=== PATIENT | female | born 1940 | race Hispanic/Latino ===

== ENCOUNTER 2017-02-28 15:06 | Emergency (ER) | payer MEDICARE ==
[2017-02-28 15:40] VITALS: BP 114/84
[2017-02-28 16:51] LABS: Basophils # (Auto) 0.1 K/mm3 (0.0-0.1); Basophils % (Auto) 1.3 % (0.0-1.8); Eosinophils # (Auto) 0.2 K/mm3 (0.0-0.4); Hematocrit 42.5 % (30.3-42.9); Hemoglobin 14.5 gm/dl (10.1-14.3); Lymphocytes # (Auto) 1.8 K/mm3 (1.2-5.4); Mean Corpuscular HGB Conc 34 % (30-34); Mean Corpuscular Hemoglobin 31 pg (28-32); Mean Corpuscular Volume 91 fl (79-97); Monocytes # (Auto) 0.3 K/mm3 (0.0-0.8); Monocytes % (Auto) 4.4 % (0.0-7.3); Platelet Count 208 K/mm3 (140-440); Red Blood Count 4.67 M/mm3 (3.65-5.03); Red Cell Distribution Width 13.8 % (13.2-15.2)
[2017-02-28 17:11] LABS: Alanine Aminotransferase 12 units/L (7-56); Albumin 4.3 g/dL (3.9-5); BUN/Creatinine Ratio 23; Blood Urea Nitrogen 14 mg/dL (7-17); Calcium 9.2 mg/dL (8.4-10.2); Hemolysis Index 50
== END 2017-03-01 02:00 | disposition left against medical advice (07) ==
LOC: ED 15:06
DX: R10.9 Unspecified abdominal pain (principal); Z53.21 Procedure and treatment not carried out due to patient leaving prior to being seen by health care provider
CPT/HCPCS: 36415; 80053; 85025; G0480; 80320

== ENCOUNTER 2019-06-03 12:18 | Observation (INO) | payer MEDICARE ==
[2019-06-03] MEDS ORDERED: oxyCODONE /ACETAMINOPHEN 5-325MG TAB PO PRN (18:51)
[2019-06-03] MEDS ORDERED: HYDROmorphone 1 MG/1 ML INJ IV PRN (18:51)
[2019-06-03] MEDS ORDERED: ACETAMINOPHEN 325 MG TAB PO PRN (18:51)
[2019-06-03] MEDS ORDERED: ONDANSETRON 4 MG/2 ML INJ IV PRN (18:51)
[2019-06-03] MEDS ORDERED: CELEXA 20 MG PO SCH (19:00)
[2019-06-03 21:18] LABS: Basophils % (Auto) 0.6 % (0.0-1.8); Eosinophils # (Auto) 0.1 K/mm3 (0.0-0.4); Eosinophils % (Auto) 2.1 % (0.0-4.3); Hematocrit 39.9 % (30.3-42.9); Hemoglobin 13.7 gm/dl (10.1-14.3); Lymphocytes # (Auto) 1.5 K/mm3 (1.2-5.4); Lymphocytes % (Auto) 26.5 % (13.4-35.0); Mean Corpuscular HGB Conc 34 % (30-34); Mean Corpuscular Volume 92 fl (79-97); Monocytes # (Auto) 0.7 K/mm3 (0.0-0.8); Monocytes % (Auto) 11.7 % (0.0-7.3); Platelet Count 186 K/mm3 (140-440); Red Blood Count 4.35 M/mm3 (3.65-5.03)
[2019-06-03 21:37] LABS: Alanine Aminotransferase 6 units/L (7-56); Albumin 3.5 g/dL (3.9-5); BUN/Creatinine Ratio 51; Blood Urea Nitrogen 36 mg/dL (7-17); Calcium 9.3 mg/dL (8.4-10.2); Hemolysis Index 9
[2019-06-03] MEDS ORDERED: NAMENDA 5 MG PO SCH (22:00)
[2019-06-03] MEDS ORDERED: ARICEPT PO SCH (22:00)
[2019-06-03] MEDS ORDERED: SEROQUEL 200 MG PO SCH (22:00)
[2019-06-03] MEDS ORDERED: KLONOPIN 1 MG PO SCH (22:00)
[2019-06-03] MEDS: atenoloL 25 MG TAB PO SCH (22:01)
[2019-06-03] MEDS: FAMOTIDINE 20 MG TAB PO SCH (22:01)
[2019-06-03] MEDS: QUEtiapine 200 MG TAB PO SCH (22:02)
[2019-06-03] MEDS: DONEPEZIL 5 MG TAB PO SCH (22:02)
[2019-06-03] MEDS: clonazePAM 0.5 MG TAB PO SCH (22:02)
[2019-06-03] MEDS: D5W/0.9% NACL 1,000 ML IV SCH (22:12)
[2019-06-03] MEDS: amLODIPine 5 MG TAB PO SCH (22:14)
[2019-06-04] MEDS: MEMANTINE 5 MG TAB PO SCH ×3 (05:41→21:34)
[2019-06-04] MEDS: CITALOPRAM 20 MG TAB PO SCH ×2 (05:41→09:18)
[2019-06-04] MEDS: D5W/0.9% NACL 1,000 ML IV SCH ×2 (05:56→15:56)
[2019-06-04] MEDS: clonazePAM 0.5 MG TAB PO SCH (09:18)
[2019-06-04] MEDS: FAMOTIDINE 20 MG TAB PO SCH ×2 (09:18→21:34)
[2019-06-04] MEDS: amLODIPine 5 MG TAB PO SCH (09:18)
[2019-06-04] MEDS: QUEtiapine 200 MG TAB PO SCH (09:20)
[2019-06-04] MEDS: atenoloL 25 MG TAB PO SCH ×2 (09:23→21:34)
--- NOTE | 2019-06-04 10:25 | Event Note ---
Date: 06/03/19 See H/p in reports AGE Dehydration
--- NOTE | 2019-06-04 11:07 | History and Physical Report ---
CHIEF COMPLAINT: Diarrhea, which is persistent for the last 24 hours. HISTORY OF PRESENT ILLNESS: A 78-year-old female admitted for poor oral intake and psychiatric treatment after the evaluation to the psych floor. The patient started having multiple episodes of loose stools and was getting dehydrated because of which the patient was transferred to the medical floor as a direct admit. PAST MEDICAL HISTORY: Hypertension and GERD. PAST SURGICAL HISTORY: Esophageal stricture dilatation. SOCIAL HISTORY: Denies smoking. FAMILY HISTORY: None. REVIEW OF SYSTEMS: Significant for persistent diarrhea. Feels weak. Otherwise, review of systems negative. PHYSICAL EXAMINATION: GENERAL: Elderly female, cooperative during examination. VITAL SIGNS: Blood pressure is 143/87, temperature is 97.3, pulse is 120, and sats are 94%. HEENT: Unremarkable. Pupils are equal and reactive. NECK: Supple, no lymphadenopathy, no thyromegaly. LUNGS: Clear to auscultation and percussion. Good air entry. CARDIOVASCULAR: S1, S2 heard. No gallop, no murmur, no rub. Apical impulse in left fifth intercostal space and midclavicular line. ABDOMEN: Soft and benign. No hepatosplenomegaly. No guarding, no rigidity. Hernial orifices are normal. EXTREMITIES: Good pedal pulses. No pedal edema. CENTRAL NERVOUS SYSTEM: Alert and oriented x 4, nonfocal exam. LABORATORY DATA: The patient's CBC is normal. BUN and creatinine is 19 and 0.7. TSH is 5.1. Albumin is 3.1. ASSESSMENT AND PLAN: 1. Acute gastroenteritis with volume depletion. ____. 2. Dehydration. IV normal saline. ____ observation. 3. Hypertension. Continue antihypertensives. 4. Deep venous thrombosis prophylaxis, Lovenox 40 mg subcutaneous daily. 5. Generalized anxiety disorder. Continue clonazepam. JOB# [id number] VSM/NTS
--- NOTE | 2019-06-04 12:59 | Consultation ---
History of Present Illness - Reason for Consult Consult date: 06/04/19 Reason for consult: MHE Requesting physician: ADRIEN VERONICA - Chief Complaint Chief complaint: Confusion - History of Present Psychiatric Illness HPI This patient was initially admitted to the [facility] inpatient for acute management of confusion, agitation and behavioral disturbances before being transferred to medical floor for dehydration, poor oral intake and medical stabilization as determined that she would benefit from inpatient psychiatric management of her acute state which is mostly due to organic causes and decline in activity of daily living such as feeding self. Patient has medical history of vascular dementia which is also a predisposing and precipitating factor. Patient was seen by bedside today in bed, sleeping deeply and only arousal to loud verbal stimuli. PAST PSYCHIATRIC HISTORY: Diagnoses: Dementia, Anxiety PAST MEDICAL HISTORY: Left Breast cancer, COPD, GI Bleed, Esophageal stricture w/ repeated dilatations, GERD, HTN, Leaky heart valve, renal cyst, valvular stenosis, and dyspena on exertion. Family Psychiatric History: None reported or documented SOCIAL HISTORY Unable to obtain due to patient's confusion REVIEW OF SYSTEMS ROS cannot be reliably obtained from the patient due to her confusion MENTAL STATUS Age appropriate, sleeping, responds to loud verbal stimuli, completely disoriented, and unable to engage in interview. Assessment and Plan - Psychiatric problem (1) At risk for polypharmacy Current Visit: No Status: Acute (2) Delirium due to another medical condition, persistent, mixed level of activity Current Visit: No Status: Acute (3) Medication noncompliance due to cognitive impairment Current Visit: No Status: Acute (4) Vascular dementia with behavioral disturbance Current Visit: No Status: Acute RECOMMENDATIONS Pls do not give patient anticholinergic medicines, antidepressants, antipsychotics or pain medication. If agitation persist, soft restraints recommended. This patient was discharged from inpatient psych due to poor oral intake, dehydration and concern for malnutrition which may worsen her confused state in which it was determined inpatient psychological intervention is no longer beneficial. MEDICATIONS: Melatonin for sleep and circadian rhythm Risks, benefits and alternatives of medications discussed with the patient, questions answered and consent obtained from patient. PSYCHOTHERAPY: Supportive psychotherapy provided MEDICAL: Per primary team DELIRIUM PRECAUTIONS: Please re-orient patient frequently, keep lights on during the day, and minimize benzodiazepines and opiates as these medications could worsen patient's confusion. 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 It is determined that patient needs skill nursing facility and not psych inpatient. LEGAL STATUS: Voluntary FOLLOW-UP: Will follow Thank you for the consult. Please contact with any questions and/or concerns. Medications and Allergies Allergies Allergy/AdvReac Type Severity Reaction Status Date / Time guaifenesin [From Mucinex] Allergy Vomiting Verified 05/25/19 15:25 sulfamethoxazole Allergy Unknown Verified 05/25/19 15:24 [From Bactrim] trimethoprim [From Bactrim] Allergy Unknown Verified 05/25/19 15:24 Home Medications Medication Instructions Recorded Confirmed Last Taken Type Aricept 0.5 mg PO QHS 05/25/19 05/25/19 Unknown History Celexa 20 mg PO DAILY 05/25/19 05/25/19 Unknown History KlonoPIN 1 mg PO BID 05/25/19 05/25/19 Unknown History Namenda Xr 5 mg PO BID 05/25/19 05/25/19 Unknown History SEROquel 200 mg PO BID 05/25/19 05/25/19 Unknown History amLODIPine 5 mg PO DAILY 05/25/19 05/25/19 Unknown History atenoloL [Tenormin] 25 mg PO BID 05/25/19 05/25/19 Unknown History Active Meds: Active Medications Acetaminophen (Tylenol) 650 mg PO Q4H PRN PRN Reason: Pain MILD(1-3)/Fever >100.5/RUDD Amlodipine Besylate (Amlodipine) 5 mg PO DAILY [facility] Last Admin: 06/04/19 09:18 Dose: 5 mg Documented by: Atenolol (Tenormin) 25 mg PO BID [facility] Last Admin: 06/04/19 09:23 Dose: 25 mg Documented by: Donepezil HCl (Aricept) 5 mg PO QHS [facility] Last Admin: 06/03/19 22:02 Dose: 5 mg Documented by: Famotidine (Pepcid) 20 mg PO BID [facility] Last Admin: 06/04/19 09:18 Dose: 20 mg Documented by: Dextrose/Sodium Chloride (D5ns) 1,000 mls @ 100 mls/hr IV DIRECT [facility] Last Admin: 06/04/19 05:56 Dose: 100 mls/hr Documented by: Memantine (Memantine) 5 mg PO BID [facility] Last Admin: 06/04/19 09:19 Dose: 5 mg Documented by: Ondansetron HCl (Zofran) 4 mg IV Q8H PRN PRN Reason: Nausea And Vomiting Sodium Chloride (Sodium Chloride Flush Syringe 10 Ml) 10 ml IV BID [facility] Last Admin: 06/04/19 09:20 Dose: 10 ml Documented by: Sodium Chloride (Sodium Chloride Flush Syringe 10 Ml) 10 ml IV PRN PRN PRN Reason: LINE FLUSH Mental Status Exam - Vital signs Last Vital Signs Temp 98.3 F 06/04/19 11:29 Pulse 86 06/04/19 11:29 Resp 17 06/04/19 11:29 BP 115/78 06/04/19 11:29 Pulse Ox 98 06/04/19 11:29 Results Result Diagrams: 06/03/19 20:23 06/03/19 20:23 Abnormal lab results 06/03/19 06/03/19 Range/Units 20:23 20:23 [place] % (Auto) 11.7 H (0.0-7.3) % BUN 36 H (7-17) mg/dL Glucose 101 H (65-100) mg/dL ALT 6 L (7-56) units/L Albumin 3.5 L (3.9-5) g/dL All other labs normal. Assessment and Plan - Psychiatric problem (1) At risk for polypharmacy Current Visit: No Status: Acute (2) Delirium due to another medical condition, persistent, mixed level of activity Current Visit: No Status: Acute (3) Medication noncompliance due to cognitive impairment Current Visit: No Status: Acute (4) Vascular dementia with behavioral disturbance Current Visit: No Status: Acute
[2019-06-04] MEDS: DONEPEZIL 5 MG TAB PO SCH (21:34)
[2019-06-05] MEDS: D5W/0.9% NACL 1,000 ML IV SCH (04:03)
[2019-06-05] MEDS: hydrALAZINE 20 MG/1 ML INJ IV PRN ×2 (05:36→13:52)
--- NOTE | 2019-06-05 09:15 | Progress Note ---
Subjective - Reason for Consult Consult date: 06/05/19 Reason for consult: MHE Requesting physician: ADRIEN VERONICA - Chief Complaint Chief complaint: Per Floor Nurse [place]: HPI This patient was initially admitted to the [facility] inpatient for acute management of confusion, agitation and behavioral disturbances before being transferred to medical floor for dehydration, poor oral intake and medical stabilization as determined that she would benefit from inpatient psychiatric management of her acute state and would need to be weaned off psychotropic medications that she has been on for a while and others restarted by medical team which was not indicated per psych. Patient awake today in soft restraints and responds to normal verbal stimuli. Reason for recommending admission to psych inpatient: Management of polypharmacy, persistent psychomotor agitation and behavioral disturbances which possess risk to self injury and others. PAST PSYCHIATRIC HISTORY: Diagnoses: Dementia, Anxiety PAST MEDICAL HISTORY: Left Breast cancer, COPD, GI Bleed, Esophageal stricture w/ repeated dilatations, GERD, HTN, Leaky heart valve, renal cyst, valvular stenosis, and dyspena on exertion. Family Psychiatric History: None reported or documented SOCIAL HISTORY Unable to obtain due to patient's confusion REVIEW OF SYSTEMS ROS cannot be reliably obtained from the patient due to her confusion MENTAL STATUS Age appropriate, sleeping, responds to loud verbal stimuli, completely disoriented, and unable to engage in interview. Assessment and Plan - Patient Problems (1) Delirium due to another medical condition, persistent, mixed level of activity Current Visit: No Status: Acute (2) Medication noncompliance due to cognitive impairment Current Visit: No Status: Acute (3) Vascular dementia with behavioral disturbance Current Visit: No Status: Acute (4) Polypharmacy Current Visit: Yes Status: Acute (5) Unspecified behavioral syndromes associated with physiological disturbances and physical factors Current Visit: Yes Status: Acute RECOMMENDATIONS On admission, pt medication that was initially discontinued and being weaned off were restarted. I have discussed with care team that patient needs to be admitted back to psych for polypharmacy induced behavioral disturbances and also weaning off medications as this may precipitate withdrawals and worsen her condition. Pls do not give patient anticholinergic medicines, antidepressants, antipsychotics or pain medication. If agitation persist, soft restraints recommended. This patient was discharged from inpatient psych due to poor oral intake, d ehydration and concern for malnutrition which may worsen her confused state in which it was determined inpatient psychological intervention is no longer beneficial. MEDICATIONS: Melatonin for sleep and circadian rhythm Risks, benefits and alternatives of medications discussed with the patient, questions answered and consent obtained from patient. PSYCHOTHERAPY: Supportive psychotherapy provided MEDICAL: Per primary team DELIRIUM PRECAUTIONS: Please re-orient patient frequently, keep lights on during the day, and minimize benzodiazepines and opiates as these medications could worsen patient's confusion. 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 Please repeat BMP. LEGAL STATUS: Voluntary FOLLOW-UP: Will follow Thank you for the consult. Please contact with any questions and/or concerns. Mental Status Exam - Vital signs Last Vital Signs Temp 97.5 F L 06/05/19 04:06 Pulse 85 06/05/19 05:36 Resp 18 06/05/19 04:06 BP 173/106 06/05/19 05:36 Pulse Ox 99 06/05/19 04:06 Assessment and Plan - Patient Problems (1) Delirium due to another medical condition, persistent, mixed level of activity Current Visit: No Status: Acute (2) Medication noncompliance due to cognitive impairment Current Visit: No Status: Acute (3) Vascular dementia with behavioral disturbance Current Visit: No Status: Acute (4) Polypharmacy Current Visit: Yes Status: Acute (5) Unspecified behavioral syndromes associated with physiological disturbances and physical factors Current Visit: Yes Status: Acute
[2019-06-05] MEDS: MEMANTINE 5 MG TAB PO SCH (09:52)
[2019-06-05] MEDS: atenoloL 25 MG TAB PO SCH (09:52)
[2019-06-05] MEDS: FAMOTIDINE 20 MG TAB PO SCH (09:52)
[2019-06-05] MEDS: amLODIPine 5 MG TAB PO SCH (09:52)
--- NOTE | 2019-06-05 09:57 | Progress Note ---
Assessment and Plan - Patient Problems (1) Delirium Current Visit: No Status: Acute Plan to address problem: Improving (2) Acute gastroenteritis Current Visit: Yes Status: Acute Plan to address problem: Resolving (3) Volume depletion, renal, due to effector loss (hormonal deficit) Current Visit: Yes Status: Acute Plan to address problem: IV FDluids (4) Polypharmacy Current Visit: Yes Status: Chronic Plan to address problem: Defer to psychiatry (5) Vascular dementia with behavioral disturbance Current Visit: No Status: Chronic Plan to address problem: Needs LTC (6) DVT prophylaxis Current Visit: Yes Status: Acute Plan to address problem: On SCD's Subjective Date of service: 06/04/19 Principal diagnosis: Dehydration,Gastroenterittis Interval history: Sx better Objective - Constitutional Vitals: Vital Signs - 12hr 06/04/19 06/05/19 06/05/19 23:16 04:06 05:36 Temperature 97.8 F 97.5 F L Pulse Rate 80 86 85 Respiratory 20 18 Rate Blood Pressure 163/100 169/110 173/106 O2 Sat by Pulse 94 99 Oximetry 06/05/19 09:52 Temperature Pulse Rate 85 Respiratory Rate Blood Pressure 173/106 O2 Sat by Pulse Oximetry General appearance: Present: no acute distress, well-nourished - EENT Eyes: PERRL, EOM intact ENT: hearing intact, clear oral mucosa Ears: bilateral: normal - Neck Neck: supple, normal ROM - Respiratory Respiratory effort: normal Respiratory: bilateral: CTA - Breasts Breasts: normal - Cardiovascular Rhythm: regular Heart Sounds: Present: S1 & S2. Absent: gallop, rub Extremities: pulses intact, No edema, normal color, Full ROM - Gastrointestinal General gastrointestinal: Present: soft, non-tender, non-distended, normal bowel sounds - Genitourinary Female genitourinary: normal - Integumentary Integumentary: clear, warm, dry - Musculoskeletal Musculoskeletal: 1, strength equal bilaterally - Neurologic Neurologic: moves all extremities - Psychiatric Psychiatric: memory intact, appropriate mood/affect, intact judgment & insight - Labs CBC & Chem 7: 06/03/19 20:23 06/03/19 20:23
--- NOTE | 2019-06-05 10:04 | Discharge Summary ---
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 Hospitalization Hospital course: Improved with IV fluids (1) Delirium Current Visit: No Status: Acute Plan to address problem: Improving (2) Acute gastroenteritis Current Visit: Yes Status: Acute Plan to address problem: Resolving (3) Volume depletion, renal, due to effector loss (hormonal deficit) Current Visit: Yes Status: Acute Plan to address problem: IV FDluids (4) Polypharmacy Current Visit: Yes Status: Chronic Plan to address problem: Defer to psychiatry (5) Vascular dementia with behavioral disturbance Current Visit: No Status: Chronic Plan to address problem: Needs LTC (6) DVT prophylaxis Current Visit: Yes Status: Acute Plan to address problem: On SCD's Disposition: [id number]/[id number] PSY HOSP/PSY UNIT - Discharge Diagnoses (1) Delirium Status: Acute (2) Acute gastroenteritis Status: Acute (3) Volume depletion, renal, due to effector loss (hormonal deficit) Status: Acute (4) Polypharmacy Status: Chronic (5) Vascular dementia with behavioral disturbance Status: Chronic (6) DVT prophylaxis Status: Acute Core Measure Documentation - Palliative Care Palliative Care/ Comfort Measures: Not Applicable - Core Measures Any of the following diagnoses?: none Exam - Constitutional Vitals: Temp Pulse Resp BP Pulse Ox 97.5 F L 85 18 173/106 99 06/05/19 04:06 06/05/19 09:52 06/05/19 04:06 06/05/19 09:52 06/05/19 04:06 General appearance: Present: no acute distress, well-nourished - EENT Eyes: Present: PERRL ENT: hearing intact, clear oral mucosa - Neck Neck: Present: supple, normal ROM - Respiratory Respiratory effort: normal Respiratory: bilateral: CTA - Cardiovascular Heart Sounds: Present: S1 & S2. Absent: rub, click - Extremities Extremities: pulses symmetrical, No edema Peripheral Pulses: within normal limits - Abdominal General gastrointestinal: Present: soft, non-tender, non-distended, normal bowel sounds Female genitourinary: Present: normal - Integumentary Integumentary: Present: clear, warm, dry - Musculoskeletal Musculoskeletal: gait normal, strength equal bilaterally - Psychiatric Psychiatric: appropriate mood/affect, intact judgment & insight - Neurologic Neurologic: CNII-XII intact, moves all extremities Plan Activity: no restrictions Diet: regular Follow up with: PRIMARY CARE,MD [Primary Care Provider] - 7 Days
[2019-06-05 10:57] LABS: BUN/Creatinine Ratio 50; Blood Urea Nitrogen 20 mg/dL (7-17); Calcium 9.1 mg/dL (8.4-10.2); Hemolysis Index 6
[2019-06-05 14:49] VITALS: BP 115/68
[2019-06-05] MEDS ORDERED: MELATONIN 5 MG TAB PO SCH (21:00)
== END 2019-06-05 17:05 ==
LOC: 3A 12:18 → UNDOADMIN 12:18 → 4A 17:04 → INTOOBSV 17:04
PROVIDERS: ADMIT Internal Medicine; ATTEND Internal Medicine
DX: K52.9 Noninfective gastroenteritis and colitis, unspecified (principal); E86.0 Dehydration; I10 Essential (primary) hypertension; F41.9 Anxiety disorder, unspecified; R41.0 Disorientation, unspecified; K21.9 Gastro-esophageal reflux disease without esophagitis; E86.9 Volume depletion, unspecified; F01.51 Vascular dementia, unspecified severity, with behavioral disturbance; Z91.14 Patient's other noncompliance with medication regimen; Z98.890 Other specified postprocedural states
CPT/HCPCS: 36415; 80048; 80053; 83036; 85025; 96361; 96374; 96376; G0378; G0379; J0360; J7042

== ENCOUNTER 2019-06-08 17:29 | Inpatient (IN) | payer MEDICARE ==
--- NOTE | 2019-06-08 17:50 | History and Physical Report ---
History of Present Illness Chief complaint: She is confused, not talking, and not eating History of present illness: 78 YO Female with Dementia, Debility, GERD, HTN, Anxiety admitted directly to the hospital medicine service from the [facility] psych service. Patient is stuporous, and nonverbal at the time of my evaluation and is unable to provide history. Patient history provided by [facility] psych nursing staff. As per staff the patient has experienced decreased oral intake, decreased verbalization, and increased confusion over the past 3 days with progressively worsening symptoms over the same timeframe. A urinalysis was obtained and the patient was found to have urinary tract infection, as well as volume depletion. Patient seen and evaluated in her room and was admitted directly to the [facility] unit for medical stabilization. Lab and imaging studies reviewed. Patient was found to have urinary tract infection, complicated by encephalopathy. Patient initiated on IV antibiotic therapy as well as IV fluid resuscitation therapy. No reports of fever, chills, chest pain, productive cough, falls, trauma, recent ill contacts. Advanced care planning conducted in the emergency department. No further history obtainable. Patient has a positive gag reflex and is able to protect her airway. Past History Past Medical History: GERD, hypertension, other (See HPI) Past Surgical History: Other (Esophageal dilatation) Social history: . denies: smoking, alcohol abuse, prescription drug abuse Family history: no significant family history (Reviewed) Medications and Allergies Allergies Allergy/AdvReac Type Severity Reaction Status Date / Time guaifenesin [From Mucinex] Allergy Vomiting Verified 05/25/19 15:25 sulfamethoxazole Allergy Unknown Verified 05/25/19 15:24 [From Bactrim] trimethoprim [From Bactrim] Allergy Unknown Verified 05/25/19 15:24 Home Medications Medication Instructions Recorded Confirmed Last Taken Type Aricept 0.5 mg PO QHS 05/25/19 06/08/19 Unknown History Celexa 20 mg PO DAILY 05/25/19 06/08/19 Unknown History KlonoPIN 1 mg PO BID 05/25/19 06/08/19 Unknown History Namenda Xr 5 mg PO BID 05/25/19 06/08/19 Unknown History SEROquel 200 mg PO BID 05/25/19 06/08/19 Unknown History amLODIPine 5 mg PO DAILY 05/25/19 06/08/19 Unknown History atenoloL [Tenormin] 25 mg PO BID 05/25/19 06/08/[address] [Depakote Dr] 125 mg PO BID tablet 06/08/19 Unknown Rx Pantoprazole [Protonix TAB] 40 mg PO QDAY tablet 06/08/19 Unknown Rx clonazePAM [KlonoPIN] 1 mg PO BID tablet 06/08/19 Unknown Rx Active Meds: Active Medications Acetaminophen (Tylenol) 650 mg PO Q4H PRN PRN Reason: Pain MILD(1-3)/Fever >100.5/RUDD Ondansetron HCl (Zofran) 4 mg IV Q8H PRN PRN Reason: Nausea And Vomiting Sodium Chloride (Sodium Chloride Flush Syringe 10 Ml) 10 ml IV BID [facility]I Sodium Chloride (Sodium Chloride Flush Syringe 10 Ml) 10 ml IV PRN PRN PRN Reason: LINE FLUSH Review of Systems ROS unobtainable: due to mental status Exam - Constitutional General appearance: Present: mild distress - EENT Eyes: Present: PERRL ENT: hearing intact, clear oral mucosa - Neck Neck: Present: supple, normal ROM - Respiratory Respiratory effort: normal Respiratory: bilateral: CTA - Cardiovascular Heart Sounds: Present: S1 & S2. Absent: rub, click - Extremities Extremities: pulses symmetrical, No edema Peripheral Pulses: within normal limits - Abdominal General gastrointestinal: Present: soft, non-tender, non-distended, normal bowel sounds Female genitourinary: Present: normal - Integumentary Integumentary: Present: clear, dry, clammy, decreased turgor - Musculoskeletal Musculoskeletal: generalized weakness - Psychiatric Psychiatric: no appropriate mood/affect, no intact judgment & insight, no memory intact - Neurologic Neurologic: CNII-XII intact, no focal deficits, moves all extremities, no gait normal Assessment and Plan - Patient Problems (1) Metabolic encephalopathy Current Visit: Yes Status: Acute Plan to address problem: CT head, neuro check, aspiration precaution, seizure precaution, fall precautions, supportive care. IV fluid resuscitation therapy as clinically jose alfredo cated. (2) Urinary tract infection Current Visit: Yes Status: Acute Qualifiers: Encounter type: initial encounter Plan to address problem: Urinalysis, CBC, CMP, IV antibiotic therapy, (3) Gastroesophageal reflux disease Current Visit: Yes Status: Acute Qualifiers: Esophagitis presence: without esophagitis Qualified Code(s): K21.9 - Gastro-esophageal reflux disease without esophagitis Plan to address problem: PPI therapy, supportive care. (4) Vascular dementia with behavioral disturbance Current Visit: No Status: Chronic Plan to address problem: Ativan as needed, aspiration precaution, fall precautions, neuro check (5) DVT prophylaxis Current Visit: Yes Status: Acute Plan to address problem: SCD to bilateral lower extremities while in bed, prophylactic heparin (6) Advance care planning Current Visit: Yes Status: Acute Plan to address problem: Disease education conducted, patient is full code, +30 minutes.
[2019-06-08 20:57] LABS: Free T4 (Free Thyroxine) 1.67 ng/dL (0.76-1.46)
[2019-06-08] MEDS ORDERED: NAMENDA 5 MG PO SCH (22:00)
[2019-06-08] MEDS ORDERED: SEROQUEL 200 MG PO SCH (22:00)
[2019-06-08] MEDS ORDERED: ARICEPT PO SCH ×2 (22:00)
[2019-06-08] MEDS ORDERED: DONEPEZIL 5 MG TAB PO SCH (22:00)
[2019-06-08] MEDS: MEMANTINE 5 MG TAB PO SCH (23:35)
[2019-06-08] MEDS: DIVALPROEX DR 125 MG TAB PO SCH (23:35)
[2019-06-08] MEDS: QUEtiapine 200 MG TAB PO SCH (23:35)
[2019-06-08] MEDS: HEPARIN 5,000 UNIT/1 ML VIAL SUB-Q SCH (23:37)
[2019-06-08] MEDS: atenoloL 25 MG TAB PO SCH (23:37)
--- NOTE | 2019-06-09 02:30 | Cat Scan Report ---
CT HEAD WITHOUT CONTRAST INDICATION: Confusion / Altered Mental Status TECHNIQUE: All CT scans at this location are performed using CT dose reduction for ALARA by means of automated exposure control. COMPARISON: None available. FINDINGS: BRAIN: No hemorrhage or mass effect are seen. No evidence of acute infarction is noted. Moderate atro phy is seen. White matter microvascular changes are noted. ORBITS: Normal as visualized. SOFT TISSUES OF HEAD: Normal. CALVARIUM: Normal. VISUALIZED PARANASAL SINUSES AND MASTOID AIR CELLS: Clear. ADDITIONAL FINDINGS: None. IMPRESSION: No acute intracranial abnormality. Signer Name: Petros Nichols MD Signed: 06/09/2019 2:26 AM Workstation Name: [id number]
[2019-06-09 05:44] LABS: Basophils % (Auto) 0.3 % (0.0-1.8); Eosinophils # (Auto) 0.1 K/mm3 (0.0-0.4); Eosinophils % (Auto) 0.5 % (0.0-4.3); Hematocrit 36.5 % (30.3-42.9); Hemoglobin 12.5 gm/dl (10.1-14.3); Lymphocytes # (Auto) 1.5 K/mm3 (1.2-5.4); Lymphocytes % (Auto) 13.2 % (13.4-35.0); Mean Corpuscular HGB Conc 34 % (30-34); Mean Corpuscular Volume 91 fl (79-97); Monocytes # (Auto) 1.3 K/mm3 (0.0-0.8); Monocytes % (Auto) 11.3 % (0.0-7.3); Platelet Count 202 K/mm3 (140-440); Red Blood Count 4.01 M/mm3 (3.65-5.03); Red Cell Distribution Width 13.9 % (13.2-15.2)
[2019-06-09 06:14] LABS: Albumin 3.7 g/dL (3.9-5); Calcium 9.7 mg/dL (8.4-10.2)
--- NOTE | 2019-06-09 08:34 | Progress Note ---
Assessment and Plan Assessment and plan: --Metabolic encephalopathy Current Visit: Yes Status: Acute Multifactorial , psych conditions , dementia , poor oral intake , possible UTI CT head no acute abnormalities noted, neurochecks, treat underlying cause, supportive care Psych evaluation --Failure to thrive in adult/poor oral intake IV fluids, nutrition supplements, Dobbhoff placement, tube feeding until she is awake and able to eat --Possible urinary tract infection Current Visit: Yes Status: Acute Empiric antibiotics with Rocephin , follow cultures . Supportive care -- Gastroesophageal reflux disease Current Visit: Yes Status: Acute PPI therapy, supportive care. --Vascular dementia with behavioral disturbance Current Visit: No Status: Chronic Ativan as needed, aspiration precaution, fall precautions, neuro check. PT OT --Abnormal TFTs Current Visit: Yes Status: Acute Abnormal thyroid function tests Normal TSH, very minimal elevation of T4 Will monitor and repeat the tests in a week -- DVT prophylaxis Current Visit: Yes Status: Acute SCD to bilateral lower extremities while in bed, prophylactic heparin -- Advance care planning/full CODE STATUS Current Visit: Yes Status: Acute Monitor closely and adjust management as needed Plan of care is reviewed with the patient's nurse I called the daughter at [phone], no one picked up the phone Could not leave message History Interval history: Patient seen and examined at bedside in her room this morning Patient's chart medications, test reports reviewed Patient is lethargic, but opening her eyes upon calling out her name Not in acute distress, refusing to eat or drink Vital signs noted Hospitalist Physical - Constitutional Vitals: Temp Pulse Resp BP Pulse Ox 98.5 F 75 18 138/80 95 06/09/19 01:58 06/09/19 01:58 06/09/19 01:58 06/09/19 01:58 06/09/19 01:58 General appearance: Present: no acute distress, cachectic, disheveled, other (Closing eyes, opening on calling out her name) - EENT Eyes: Present: PERRL, EOM intact - Neck Neck: Present: supple, normal ROM - Respiratory Respiratory effort: normal Respiratory: bilateral: diminished, negative: rales, rhonchi, wheezing - Cardiovascular Rhythm: regular Heart Sounds: Present: S1 & S2 - Extremities Extremities: no ischemia, No edema - Abdominal General gastrointestinal: soft, non-tender, non-distended, normal bowel sounds - Integumentary Integumentary: Present: clear, warm - Psychiatric Psychiatric: other (Lethargic and confused) - Neurologic Neurologic: moves all extremities Results - Labs CBC & Chem 7: 06/09/19 05:00 06/09/19 05:00 Labs: Laboratory Last Values WBC 11.2 K/mm3 (4.5-11.0) H 06/09/19 05:00 RBC 4.01 M/mm3 (3.65-5.03) 06/09/19 05:00 Hgb 12.5 gm/dl (10.1-14.3) 06/09/19 05:00 Hct 36.5 % (30.3-42.9) 06/09/19 05:00 MCV 91 fl (79-97) 06/09/19 05:00 MCH 31 pg (28-32) 06/09/19 05:00 MCHC 34 % (30-34) 06/09/19 05:00 RDW 13.9 % (13.2-15.2) 06/09/19 05:00 Plt Count 202 K/mm3 (140-440) 06/09/19 05:00 Lymph % (Auto) 13.2 % (13.4-35.0) L 06/09/19 05:00 [place] % (Auto) 11.3 % (0.0-7.3) H 06/09/19 05:00 Eos % (Auto) 0.5 % (0.0-4.3) 06/09/19 05:00 Baso % (Auto) 0.3 % (0.0-1.8) 06/09/19 05:00 Lymph # 1.5 K/mm3 (1.2-5.4) 06/09/19 05:00 [place] # 1.3 K/mm3 (0.0-0.8) H 06/09/19 05:00 Eos # 0.1 K/mm3 (0.0-0.4) 06/09/19 05:00 Baso # 0.0 K/mm3 (0.0-0.1) 06/09/19 05:00 Seg Neutrophils % 74.7 % (40.0-70.0) H 06/09/19 05:00 Seg Neutrophils # 8.3 K/mm3 (1.8-7.7) H 06/09/19 05:00 Sodium 147 mmol/L (137-145) H 06/09/19 05:00 Potassium 3.7 mmol/L (3.6-5.0) 06/09/19 05:00 Chloride 107.6 mmol/L (98-107) H 06/09/19 05:00 Carbon Dioxide 25 mmol/L (22-30) 06/09/19 05:00 Anion Gap 18 mmol/L 06/09/19 05:00 BUN 71 mg/dL (7-17) H 06/09/19 05:00 Creatinine 1.2 mg/dL (0.7-1.2) D 06/09/19 05:00 Estimated GFR 44 ml/min 06/09/19 05:00 BUN/Creatinine Ratio 59 % 06/09/19 05:00 Glucose 134 mg/dL (65-100) H 06/09/19 05:00 Calcium 9.7 mg/dL (8.4-10.2) 06/09/19 05:00 Total Bilirubin 0.70 mg/dL (0.1-1.2) 06/09/19 05:00 AST 30 units/L (5-40) 06/09/19 05:00 ALT 14 units/L (7-56) 06/09/19 05:00 Alkaline Phosphatase 77 units/L (35-129) 06/09/19 05:00 Total Protein 6.9 g/dL (6.3-8.2) 06/09/19 05:00 Albumin 3.7 g/dL (3.9-5) L 06/09/19 05:00 Albumin/Globulin Ratio 1.2 % 06/09/19 05:00 TSH 3.110 mlU/mL (0.270-4.200) 06/08/19 20:05 Free T4 1.67 ng/dL (0.76-1.46) H 06/08/19 20:05 Polanco/IV: Voiding Method Incontinent IV Catheter Type [Left Forearm INT / Saline Lock ] Active Medications - Current Medications Current Medications: Generic Name Dose Route Start Last Admin Trade Name Freq PRN Reason Stop Dose Admin Acetaminophen 650 mg 06/08/19 17:46 Tylenol PO Q4H PRN Pain MILD(1-3)/Fever >100.5/RUDD Amlodipine Besylate 5 mg 06/09/19 10:00 Amlodipine PO DAILY [facility] Atenolol 25 mg 06/08/19 22:00 06/08/19 23:37 Tenormin PO 25 mg BID PAMDINI Administration Citalopram Hydrobromide 20 mg 06/09/19 10:00 Celexa PO QDAY [facility] Divalproex Sodium 125 mg 06/08/19 22:00 06/08/19 23:[address] PO 125 mg BID PADMINI Administration Donepezil HCl 5 mg 06/08/19 22:00 06/08/19 23:35 Aricept PO 5 mg QHS PADMINI Administration Heparin Sodium (Porcine) 5,000 unit 06/08/19 22:00 06/08/19 23:37 Heparin SUB-Q 5,000 unit Q12HR PADMINI Administration Ceftriaxone Sodium 1 gm in 50 mls @ 100 mls/hr 06/08/19 17:50 Rocephin/Ns 1 Gm/50 Ml IV Q24HR [facility] Protocol Memantine 5 mg 06/08/19 22:00 06/08/19 23:35 Memantine PO 5 mg BID PADMINI Administration Ondansetron HCl 4 mg 06/08/19 17:46 Zofran IV Q8H PRN Nausea And Vomiting Pantoprazole Sodium 40 mg 06/09/19 10:00 Protonix PO QDAY [facility] Quetiapine Fumarate 200 mg 06/08/19 22:00 06/08/19 23:35 Seroquel PO 200 mg BID PADMINI Administration Sodium Chloride 10 ml 06/08/19 22:00 06/08/19 23:36 Sodium Chloride Flush Syringe 10 Ml IV 10 ml BID PADMINI Administration Sodium Chloride 10 ml 06/08/19 17:46 Sodium Chloride Flush Syringe 10 Ml IV PRN PRN LINE FLUSH
[2019-06-09] MEDS ORDERED: LIPASE 10,500/PROTEASE 25,000/AMYLASE 43,750 (UNITS) DR CAP FEEDTUBE PRN (08:44)
[2019-06-09] MEDS ORDERED: SIMPLE SYRUP 15 ML FEEDTUBE PRN ×2 (08:44)
[2019-06-09] MEDS ORDERED: SODIUM BICARBONATE 325 MG TAB FEEDTUBE PRN (08:44)
[2019-06-09] MEDS: cefTRIAXone/NS 1 GM/50 ML 1 GM/50 ML BAG IV SCH ×2 (09:18→10:05)
--- NOTE | 2019-06-09 09:19 | Event Note ---
Date: 06/09/19 Nurse reports that patient's daughter Essence wanted to talk about Ms. Geoff Soto's medical condition and treatment plan I called Essence [phone]. And discussed in detail patient's condition, test reports, treatment plan. The daughter had many questions, answered all of them.
[2019-06-09] MEDS: D5W/0.45% NACL 1,000 ML IV SCH ×2 (09:20→17:33)
--- NOTE | 2019-06-09 09:48 | XRay Report ---
ABDOMEN 1 VIEW(S) INDICATION / CLINICAL INFORMATION: DOBHOFF PLACEMENT. COMPARISON: None available. FINDINGS: TUBES / LINES: Weighted feeding tube tip is in the proximal stomach. BOWEL GAS PATTERN: No significant abnormality. FREE AIR / EXTRALUMINAL GAS: None seen. ADDITIONAL FINDINGS: No significant additional findings. IMPRESSION: 1. The tip of the weighted enteric feeding tube is in the proximal stomach. Signer Name: Clifton Schwartz MD Signed: 06/09/2019 9:44 AM Workstation Name: [facility]
[2019-06-09] MEDS ORDERED: CELEXA 20 MG PO SCH (10:00)
--- NOTE | 2019-06-09 11:26 | Consultation ---
History of Present Illness - Reason for Consult Consult date: 06/09/19 Reason for consult: psychosis - Chief Complaint Chief complaint: She is confused, not talking, and not eating - History of Present Psychiatric Illness Brittany Tellez is a 78 y/o female patient known to me from a recent psychiatric admission. I attempted to interview the patient today, she was somnolent and unable to participate in the interview. She was in wrist restraints. An NG tube was in place. Past Psychiatric History Unable to assess due to the patient's factors Social History Unable to complete Family history Unable to complete Medical History Unable to complete REVIEW OF SYSTEMS Unable to assess MENTAL STATUS EXAMINATION Unable to assess Assessment Psychosis Plan MEDICATIONS: Okay to continue ordered meds from floor. Risks, benefits and alternatives of medications discussed with the patient, questions answered and consent obtained from patient. PSYCHOTHERAPY: Supportive psychotherapy provided MEDICAL: Per primary team DELIRIUM PRECAUTIONS: Please re-orient patient frequently, keep lights on during the day, and minimize benzodiazepines and opiates as these medications could worsen patient's confusion. 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 It is my clinical opinion that due to the patient's complex medical condition she would likely not improve or benefit from out services at this time. Will sign off. Please place a new consult if needed in the future. Thank you for the consult. Please contact with any questions and/or concerns. Medications and Allergies Allergies Allergy/AdvReac Type Severity Reaction Status Date / Time guaifenesin [From Mucinex] Allergy Vomiting Verified 05/25/19 15:25 sulfamethoxazole Allergy Unknown Verified 05/25/19 15:24 [From Bactrim] trimethoprim [From Bactrim] Allergy Unknown Verified 05/25/19 15:24 Home Medications Medication Instructions Recorded Confirmed Last Taken Type Aricept 0.5 mg PO QHS 05/25/19 06/08/19 Unknown History Celexa 20 mg PO DAILY 05/25/19 06/08/19 Unknown History KlonoPIN 1 mg PO BID 05/25/19 06/08/19 Unknown History Namenda Xr 5 mg PO BID 05/25/19 06/08/19 Unknown History SEROquel 200 mg PO BID 05/25/19 06/08/19 Unknown History amLODIPine 5 mg PO DAILY 05/25/19 06/08/19 Unknown History atenoloL [Tenormin] 25 mg PO BID 05/25/19 06/08/[address] [Depakote Dr] 125 mg PO BID tablet 06/08/19 06/08/19 Unknown Rx Pantoprazole [Protonix TAB] 40 mg PO QDAY tablet 06/08/19 06/08/19 Unknown Rx clonazePAM [KlonoPIN] 1 mg PO BID tablet 06/08/19 06/08/19 Unknown Rx Active Meds: Active Medications Acetaminophen (Tylenol) 650 mg PO Q4H PRN PRN Reason: Pain MILD(1-3)/Fever >100.5/RUDD Amlodipine Besylate (Amlodipine) 5 mg PO DAILY COUNT [facility] Lipase/Protease/Amylase (Pancrekenia Olivares 10,500 Unit) 1 each FEEDTUBE PRN PRN PRN Reason: For Clogged Feeding Tube Atenolol (Tenormin) 25 mg PO BID COUNT [facility]CLUD[facility] Last Admin: 06/08/19 23:37 Dose: 25 mg Documented by: Citalopram Hydrobromide (Celexa) 20 mg PO QDAY COUNT [facility]CLUD[facility] Divalproex Sodium (Depakote Dr) 125 mg PO BID COUNT [facility]CLUD[facility] Last Admin: 06/08/19 23:35 Dose: 125 mg Documented by: Donepezil HCl (Aricept) 5 mg PO QHS COUNT [facility] Last Admin: 06/08/19 23:35 Dose: 5 mg Documented by: Heparin Sodium (Porcine) (Heparin) 5,000 unit SUB-Q Q12HR COUNT [facility]CLUD[facility] Last Admin: 06/08/19 23:37 Dose: 5,000 unit Documented by: Ceftriaxone Sodium (Rocephin/Ns 1 Gm/50 Ml) 1 gm in 50 mls @ 100 mls/hr IV Q24HR COUNT [facility]CLUD[facility]; Protocol Last Admin: 06/09/19 10:05 Dose: 100 mls/hr Documented by: Dextrose/Sodium Chloride (D5/0.45ns) 1,000 mls @ 125 mls/hr IV DIRECT COUNT [facility]CLUD[facility] Last Admin: 06/09/19 09:20 Dose: 125 mls/hr Documented by: Memantine (Memantine) 5 mg PO BID COUNT [facility]CLUD[facility] Last Admin: 06/08/19 23:35 Dose: 5 mg Documented by: Ondansetron HCl (Zofran) 4 mg IV Q8H PRN PRN Reason: Nausea And Vomiting Pantoprazole Sodium (Protonix) 40 mg PO QDAY COUNT [facility]CLUD[facility] Quetiapine Fumarate (Seroquel) 200 mg PO BID COUNT [facility]CLUD[facility] Last Admin: 06/08/19 23:35 Dose: 200 mg Documented by: Simple Syrup (Simple Syrup) 15 ml FEEDTUBE PRN PRN PRN Reason: Hypoglycemia Simple Syrup (Simple Syrup) 30 ml FEEDTUBE PRN PRN PRN Reason: Hypoglycemia Sodium Bicarbonate (Sodium Bicarbonate) 325 mg FEEDTUBE PRN PRN PRN Reason: For Clogged Feeding Tube Sodium Chloride (Sodium Chloride Flush Syringe 10 Ml) 10 ml IV BID COUNT [facility]CLUD[facility] Last Admin: 06/09/19 10:06 Dose: 10 ml Documented by: Sodium Chloride (Sodium Chloride Flush Syringe 10 Ml) 10 ml IV PRN PRN PRN Reason: LINE FLUSH Mental Status Exam - Vital signs Last Vital Signs Temp 98.0 F 06/09/19 08:00 Pulse 90 06/09/19 08:00 Resp 18 06/09/19 08:00 BP 111/74 06/09/19 08:00 Pulse Ox 95 06/09/19 08:41 Results Result Diagrams: 06/09/19 05:00 06/09/19 05:00 Abnormal lab results 06/08/19 06/09/19 06/09/19 Range/Units 20:05 05:00 05:00 WBC 11.2 H (4.5-11.0) K/mm3 Lymph % (Auto) 13.2 L (13.4-35.0) % [place] % (Auto) 11.3 H (0.0-7.3) % [place] # 1.3 H (0.0-0.8) K/mm3 Seg Neutrophils % 74.7 H (40.0-70.0) % Seg Neutrophils # 8.3 H (1.8-7.7) K/mm3 Sodium 147 H (137-145) mmol/L Chloride 107.6 H (98-107) mmol/L BUN 71 H (7-17) mg/dL Glucose 134 H (65-100) mg/dL Albumin 3.7 L (3.9-5) g/dL Free T4 1.67 H (0.76-1.46) ng/dL All other labs normal.
[2019-06-09] MEDS: HEPARIN 5,000 UNIT/1 ML VIAL SUB-Q SCH ×2 (14:25→22:06)
[2019-06-09] MEDS: amLODIPine 5 MG TAB PO SCH (14:26)
[2019-06-09] MEDS: atenoloL 25 MG TAB PO SCH ×2 (14:26→22:07)
[2019-06-09] MEDS: DIVALPROEX DR 125 MG TAB PO SCH (14:26)
[2019-06-09] MEDS: QUEtiapine 200 MG TAB PO SCH (14:27)
[2019-06-09] MEDS: CITALOPRAM 20 MG TAB PO SCH (14:27)
[2019-06-09] MEDS: PANTOPRAZOLE 40 MG TAB PO SCH (14:27)
[2019-06-09] MEDS: MEMANTINE 5 MG TAB PO SCH (14:27)
[2019-06-09] MEDS: QUEtiapine 100 MG TAB PO SCH ×2 (16:13→22:06)
[2019-06-10] MEDS: D5W/0.45% NACL 1,000 ML IV SCH ×3 (02:35→21:49)
[2019-06-10 05:06] LABS: Basophils % (Auto) 0.6 % (0.0-1.8); Eosinophils # (Auto) 0.3 K/mm3 (0.0-0.4); Eosinophils % (Auto) 3.7 % (0.0-4.3); Hematocrit 32.3 % (30.3-42.9); Hemoglobin 10.9 gm/dl (10.1-14.3); Lymphocytes # (Auto) 1.6 K/mm3 (1.2-5.4); Mean Corpuscular HGB Conc 34 % (30-34); Mean Corpuscular Volume 93 fl (79-97); Monocytes # (Auto) 0.7 K/mm3 (0.0-0.8); Monocytes % (Auto) 10.2 % (0.0-7.3); Platelet Count 146 K/mm3 (140-440); Red Blood Count 3.49 M/mm3 (3.65-5.03); Red Cell Distribution Width 14.1 % (13.2-15.2)
[2019-06-10 05:24] LABS: Calcium 8.7 mg/dL (8.4-10.2)
[2019-06-10] MEDS ORDERED: POTASSIUM CHLORIDE 20 MEQ PACKET FEEDTUBE ONE ×2 (05:47→11:00)
--- NOTE | 2019-06-10 09:58 | Progress Note ---
Assessment and Plan Assessment and plan: --Hypokalemia: Replace with Kcl , Check Mg, f/u electrolytes --Metabolic encephalopathy Current Visit: Yes Status: Acute. Multifactorial , psych conditions , dementia , poor oral intake , possible UTI CT head no acute abnormalities noted, neurochecks, treat underlying cause, supportive care Psych evaluation --Failure to thrive in adult/poor oral intake IV fluids, nutrition supplements, Dobbhoff placement, tube feeding until she is awake and able to eat --Possible urinary tract infection Current Visit: Yes Status: Acute Empiric antibiotics with Rocephin , follow cultures . Supportive care -- Gastroesophageal reflux disease Current Visit: Yes Status: Acute PPI therapy, supportive care. --Vascular dementia with behavioral disturbance Current Visit: No Status: Chronic Ativan as needed, aspiration precaution, fall precautions, neuro check. PT OT --Abnormal TFTs Current Visit: Yes Status: Acute Abnormal thyroid function tests Normal TSH, very minimal elevation of T4 Will monitor and repeat the tests in a week -- DVT prophylaxis Current Visit: Yes Status: Acute SCD to bilateral lower extremities while in bed, prophylactic heparin -- Advance care planning/full CODE STATUS Current Visit: Yes Status: Acute Monitor closely and adjust management as needed Plan of care is reviewed with the patient's nurse Disposition; follow clinically, follow swallow eval Possible placement, DC planning per Brief history: 78-year-old female patient with severe dementia debility psych disorders on multiple psych medications was transferred from [facility] psych unit with history of severe dementia, severe metabolic encephalopathy, unresponsive, poor oral intake and dehydration,Possible urinary tract infection. Patient is more alert and awake today receiving Dobbhoff feeds Follow speech and swallow evaluation, diet as tolerated brief history History Interval history: Patient seen and examined at the bedside this morning Patient's chart, medications ,tests nursing reports reviewed Patient is more alert and awake, responding appropriately sometimes Confused at other times, not in acute distress Vital signs noted Hospitalist Physical - Constitutional Vitals: Temp Pulse Resp BP Pulse Ox 98.9 F 98 H 20 115/77 97 06/10/19 07:00 06/10/19 07:00 06/10/19 07:00 06/10/19 07:00 06/10/19 07:59 General appearance: Present: no acute distress, cachectic, disheveled, other (Closing eyes, opening on calling out her name) - EENT Eyes: Present: PERRL, EOM intact - Neck Neck: Present: supple, normal ROM - Respiratory Respiratory effort: normal Respiratory: bilateral: diminished, negative: rales, rhonchi, wheezing - Cardiovascular Rhythm: regular Heart Sounds: Present: S1 & S2 - Extremities Extremities: no ischemia, No edema, abnormal (Age-related changes) - Abdominal General gastrointestinal: soft, non-tender, non-distended, normal bowel sounds - Integumentary Integumentary: Present: clear, warm - Psychiatric Psychiatric: other (Confused at times) - Neurologic Neurologic: moves all extremities Results - Labs CBC & Chem 7: 06/10/19 04:03 06/10/19 04:03 Labs: Laboratory Last Values WBC 7.2 K/mm3 (4.5-11.0) 06/10/19 04:03 RBC 3.49 M/mm3 (3.65-5.03) L 06/10/19 04:03 Hgb 10.9 gm/dl (10.1-14.3) 06/10/19 04:03 Hct 32.3 % (30.3-42.9) 06/10/19 04:03 MCV 93 fl (79-97) 06/10/19 04:03 MCH 31 pg (28-32) 06/10/19 04:03 MCHC 34 % (30-34) 06/10/19 04:03 RDW 14.1 % (13.2-15.2) 06/10/19 04:03 Plt Count 146 K/mm3 (140-440) 06/10/19 04:03 Lymph % (Auto) 22.0 % (13.4-35.0) 06/10/19 04:03 [place] % (Auto) 10.2 % (0.0-7.3) H 06/10/19 04:03 Eos % (Auto) 3.7 % (0.0-4.3) 06/10/19 04:03 Baso % (Auto) 0.6 % (0.0-1.8) 06/10/19 04:03 Lymph # 1.6 K/mm3 (1.2-5.4) 06/10/19 04:03 [place] # 0.7 K/mm3 (0.0-0.8) 06/10/19 04:03 Eos # 0.3 K/mm3 (0.0-0.4) 06/10/19 04:03 Baso # 0.0 K/mm3 (0.0-0.1) 06/10/19 04:03 Seg Neutrophils % 63.5 % (40.0-70.0) 06/10/19 04:03 Seg Neutrophils # 4.6 K/mm3 (1.8-7.7) 06/10/19 04:03 Sodium 138 mmol/L (137-145) D 06/10/19 04:03 Potassium 2.9 mmol/L (3.6-5.0) L* D 06/10/19 04:03 Chloride 103.4 mmol/L (98-107) 06/10/19 04:03 Carbon Dioxide 23 mmol/L (22-30) 06/10/19 04:03 Anion Gap 15 mmol/L 06/10/19 04:03 BUN 73 mg/dL (7-17) H 06/10/19 04:03 Creatinine 1.2 mg/dL (0.7-1.2) 06/10/19 04:03 Estimated GFR 44 ml/min 06/10/19 04:03 BUN/Creatinine Ratio 61 % 06/10/19 04:03 Glucose 148 mg/dL (65-100) H 06/10/19 04:03 POC Glucose 115 (70-105) H 06/10/19 06:26 Calcium 8.7 mg/dL (8.4-10.2) 06/10/19 04:03 Magnesium 2.10 mg/dL (1.7-2.3) 06/10/19 09:28 Total Bilirubin 0.70 mg/dL (0.1-1.2) 06/09/19 05:00 AST 30 units/L (5-40) 06/09/19 05:00 ALT 14 units/L (7-56) 06/09/19 05:00 Alkaline Phosphatase 77 units/L (35-129) 06/09/19 05:00 Total Protein 6.9 g/dL (6.3-8.2) 06/09/19 05:00 Albumin 3.7 g/dL (3.9-5) L 06/09/19 05:00 Albumin/Globulin Ratio 1.2 % 06/09/19 05:00 TSH 3.110 mlU/mL (0.270-4.200) 06/08/19 20:05 Free T4 1.67 ng/dL (0.76-1.46) H 06/08/19 20:05 Polanco/IV: Voiding Method Diaper IV Catheter Type [Left Hand] INT / Saline Lock IV Catheter Type [Left Forearm INT / Saline Lock ] Active Medications - Current Medications Current Medications: Generic Name Dose Route Start Last Admin Trade Name Freq PRN Reason Stop Dose Admin Acetaminophen 650 mg 06/08/19 17:46 Tylenol PO Q4H PRN Pain MILD(1-3)/Fever >100.5/RUDD Amlodipine Besylate 5 mg 06/09/19 10:00 06/09/19 14:26 Amlodipine PO 5 mg DAILY PAMDINI Administration Lipase/Protease/Amylase 1 each 06/09/19 08:[address] 10,500 Unit FEEDTUBE PRN PRN For Clogged Feeding Tube Atenolol 25 mg 06/08/19 22:00 06/09/19 22:07 Tenormin PO 25 mg BID PADMINI Administration Citalopram Hydrobromide 20 mg 06/09/19 10:00 06/09/19 14:27 Celexa PO Not Given QDAY PADMINI Heparin Sodium (Porcine) 5,000 unit 06/08/19 22:00 06/09/19 22:06 Heparin SUB-Q 5,000 unit Q12HR PADMINI Administration Ceftriaxone Sodium 1 gm in 50 mls @ 100 mls/hr 06/08/19 17:50 06/09/19 10:05 Rocephin/Ns 1 Gm/50 Ml IV 100 mls/hr Q24HR PADMINI Administration Protocol Dextrose/Sodium Chloride 1,000 mls @ 125 mls/hr 06/09/19 09:00 06/10/19 02:35 D5/0.45ns IV 125 mls/hr DIRECT PADMINI Administration Valproate Sodium 500 mg/ 105 mls @ 100 mls/hr 06/10/19 10:00 Sodium Chloride IV DAILY PADMINI Ondansetron HCl 4 mg 06/08/19 17:46 Zofran IV Q8H PRN Nausea And Vomiting Pantoprazole Sodium 40 mg 06/09/19 10:00 06/09/19 14:27 Protonix PO 40 mg QDAY PADMINI Administration Potassium Chloride 40 meq 06/10/19 11:00 Potassium Chloride FEEDTUBE 06/10/19 11:01 ONCE ONE Quetiapine Fumarate 100 mg 06/09/19 16:00 06/09/19 22:06 Seroquel PO 100 mg BID PADMINI Administration Simple Syrup 15 ml 06/09/19 08:44 Simple Syrup FEEDTUBE PRN PRN Hypoglycemia Simple Syrup 30 ml 06/09/19 08:44 Simple Syrup FEEDTUBE PRN PRN Hypoglycemia Sodium Bicarbonate 325 mg 06/09/19 08:44 Sodium Bicarbonate FEEDTUBE PRN PRN For Clogged Feeding Tube Sodium Chloride 10 ml 06/08/19 22:00 06/09/19 22:07 Sodium Chloride Flush Syringe 10 Ml IV 10 ml BID PADMINI Administration Sodium Chloride 10 ml 06/08/19 17:46 Sodium Chloride Flush Syringe 10 Ml IV PRN PRN LINE FLUSH Nutrition/Malnutrition Assess - Dietary Evaluation Nutrition/Malnutrition Findings: Nutrition Notes Start: 06/09/19 09:01 Freq: Status: Active Protocol: Document 06/09/19 09:01 LM (Rec: 06/09/19 09:28 LM [id number]) Nutrition Notes Need for Assessment generated from: MD Order,registrar college or university,MST Initial or Follow up Assessment Current Diagnosis Hypertension Other Pertinent Diagnosis Dementia w/ behavioral disturbances, metabolic encephalopathy Current Diet TF Labs/Tests Na 147 Pertinent Medications Reviewed Height 5 ft 1 in Weight 56.9 kg [place] Body Weight (kg) 47.72 BMI 23.7 Weight change and time frame Pt previously weighed 65kg. Currently [facility] Weight Status Appropriate Subjective/Other Information MD consult for TF. RN screen for MST and skin risk. Pt was moved from [facility] Psych floor yesterday. Pt has been having continually poor intakes during recent admissions. Pt is now nonverbal and not eating per MD reports. Pt with dobhoff. No perry score in chart. 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 Burn Absent Trauma Absent GI Symptoms None Current % PO Negligible Minimum of two criteria Yes Energy Intake (non-severe) <75% Estimated Energy Requirement >7 days Reduced Nutrition Services Assistant Strength Measurably Reduced (severe) #1 Nutrition Diagnosis Malnutrition Etiology dementia and metabolic encephalopathy As Evidenced by Signs and Symptoms Pt with poor intakes >7days, pt requiring TF Is patient on ventilator? No Is Patient Ambulatory and/or Out of Bed No REE-([place] Jeor-confined to bed) [phone] Calculation Used for Recommendations [place] Additional Notes Protein: 68-85g (1.2-1.5g/kg) Fluid: 1 ml/kg Nutrition Intervention Change Diet Order: TF Nutrition Support: Promote 1.0 at 50ml/hr Flush 150ml q4h for hypernatremia Flush 50ml q4h once resolved Kcal 1,200 Protein (gm) 75 Fluid (mL) 1,007 Goal #1 TF start/tolerance Anticipated Discharge Needs: unable to determine at this time Follow-Up By: 06/11/19 Additional Comments F/U for TF start/tolerance
[2019-06-10] MEDS: CITALOPRAM 20 MG TAB PO SCH (10:00)
[2019-06-10] MEDS: atenoloL 25 MG TAB PO SCH ×2 (10:00→21:48)
[2019-06-10] MEDS: PANTOPRAZOLE 40 MG TAB PO SCH (10:00)
[2019-06-10] MEDS: amLODIPine 5 MG TAB PO SCH (10:00)
[2019-06-10] MEDS: QUEtiapine 100 MG TAB PO SCH ×2 (10:00→21:48)
[2019-06-10] MEDS: HEPARIN 5,000 UNIT/1 ML VIAL SUB-Q SCH ×2 (10:01→21:49)
[2019-06-10] MEDS: cefTRIAXone/NS 1 GM/50 ML 1 GM/50 ML BAG IV SCH (10:08)
[2019-06-10] MEDS: VALPROATE SODIUM 500 MG in SODIUM CHLORIDE 0.9% 100 ML IV SCH (10:08)
[2019-06-10] MEDS: ONDANSETRON 4 MG/2 ML INJ IV PRN (21:49)
[2019-06-11] MEDS: D5W/0.45% NACL 1,000 ML IV SCH ×2 (05:59→17:40)
[2019-06-11 06:41] LABS: BUN/Creatinine Ratio 51; Blood Urea Nitrogen 36 mg/dL (7-17); Calcium 8.6 mg/dL (8.4-10.2); Hemolysis Index 7
[2019-06-11] MEDS: amLODIPine 5 MG TAB PO SCH (10:00)
[2019-06-11] MEDS: atenoloL 25 MG TAB PO SCH ×2 (10:00→21:18)
[2019-06-11] MEDS: cefTRIAXone/NS 1 GM/50 ML 1 GM/50 ML BAG IV SCH (10:55)
[2019-06-11] MEDS: CITALOPRAM 20 MG TAB PO SCH (10:55)
[2019-06-11] MEDS: VALPROATE SODIUM 500 MG in SODIUM CHLORIDE 0.9% 100 ML IV SCH (10:55)
[2019-06-11] MEDS: PANTOPRAZOLE 40 MG TAB PO SCH (10:55)
[2019-06-11] MEDS: QUEtiapine 100 MG TAB PO SCH ×2 (10:55→21:17)
[2019-06-11] MEDS: HEPARIN 5,000 UNIT/1 ML VIAL SUB-Q SCH ×2 (10:56→21:18)
--- NOTE | 2019-06-11 12:50 | Progress Note ---
Assessment and Plan - Patient Problems (1) Metabolic encephalopathy Current Visit: Yes Status: Acute Plan to address problem: neuro check, aspiration precaution, seizure precaution, fall precautions, supportive care. IV fluid resuscitation therapy as clinically indicated. (2) Urinary tract infection Current Visit: Yes Status: Acute Qualifiers: Encounter type: initial encounter Plan to address problem: Urinalysis, CBC, CMP, IV antibiotic therapy, (3) Gastroesophageal reflux disease Current Visit: Yes Status: Acute Qualifiers: Esophagitis presence: without esophagitis Qualified Code(s): K21.9 - Gastro-esophageal reflux disease without esophagitis Plan to address problem: PPI therapy, supportive care. (4) Vascular dementia with behavioral disturbance Current Visit: No Status: Chronic Plan to address problem: Ativan as needed, aspiration precaution, fall precautions, neuro check (5) DVT prophylaxis Current Visit: Yes Status: Acute Plan to address problem: SCD to bilateral lower extremities while in bed, prophylactic heparin (6) Advance care planning Current Visit: Yes Status: Acute Plan to address problem: Disease education conducted, patient is full code, +30 minutes. [facility]osp[facility] care History Interval history: 78-year-old Female hospital day 3 UTI, metabolic encephalopathy, debility, diminished oral intake, vascular dementia. Patient is pending discharge to [facility]. Patient is bedbound, nonambulatory, and requires 6/6 assistance with activities of daily living. Patient has palliative performance score of 30%. Patient is a poor candidate for PEG tube placement and they do not improve survival. Patient has poor prognosis and is a candidate for palliative/hospice care. Discharge to SNF when bed available. Patient continues to be confused/lethargic. Patient mental status has not normalized with supportive care. Hospitalist Physical - Constitutional Vitals: Temp Pulse Resp BP Pulse Ox 98.8 F 87 20 110/61 99 06/11/19 07:31 06/11/19 07:31 06/11/19 07:31 06/11/19 07:31 06/11/19 07:31 General appearance: Present: no acute distress, cachectic, disheveled, other (Closing eyes, opening on calling out her name) - EENT Eyes: Present: PERRL ENT: hearing decreased - Neck Neck: Present: supple - Respiratory Respiratory effort: normal Respiratory: bilateral: CTA - Cardiovascular Rhythm: regular Peripheral Pulses: within normal limits - Abdominal General gastrointestinal: soft, non-distended - Integumentary Integumentary: Present: clear, dry - Psychiatric Psychiatric: no appropriate mood/affect, no intact judgment & insight, no memory intact - Neurologic Neurologic: no focal deficits, moves all extremities, no gait normal Results - Labs CBC & Chem 7: 06/10/19 04:03 06/11/19 04:02 Labs: Laboratory Last Values WBC 7.2 K/mm3 (4.5-11.0) 06/10/19 04:03 RBC 3.49 M/mm3 (3.65-5.03) L 06/10/19 04:03 Hgb 10.9 gm/dl (10.1-14.3) 06/10/19 04:03 Hct 32.3 % (30.3-42.9) 06/10/19 04:03 MCV 93 fl (79-97) 06/10/19 04:03 MCH 31 pg (28-32) 06/10/19 04:03 MCHC 34 % (30-34) 06/10/19 04:03 RDW 14.1 % (13.2-15.2) 06/10/19 04:03 Plt Count 146 K/mm3 (140-440) 06/10/19 04:03 Lymph % (Auto) 22.0 % (13.4-35.0) 06/10/19 04:03 [place] % (Auto) 10.2 % (0.0-7.3) H 06/10/19 04:03 Eos % (Auto) 3.7 % (0.0-4.3) 06/10/19 04:03 Baso % (Auto) 0.6 % (0.0-1.8) 06/10/19 04:03 Lymph # 1.6 K/mm3 (1.2-5.4) 06/10/19 04:03 [place] # 0.7 K/mm3 (0.0-0.8) 06/10/19 04:03 Eos # 0.3 K/mm3 (0.0-0.4) 06/10/19 04:03 Baso # 0.0 K/mm3 (0.0-0.1) 06/10/19 04:03 Seg Neutrophils % 63.5 % (40.0-70.0) 06/10/19 04:03 Seg Neutrophils # 4.6 K/mm3 (1.8-7.7) 06/10/19 04:03 Sodium 138 mmol/L (137-145) 06/11/19 04:02 Potassium 3.5 mmol/L (3.6-5.0) L D 06/11/19 04:02 Chloride 101.1 mmol/L (98-107) 06/11/19 04:02 Carbon Dioxide 27 mmol/L (22-30) 06/11/19 04:02 Anion Gap 13 mmol/L 06/11/19 04:02 BUN 36 mg/dL (7-17) H 06/11/19 04:02 Creatinine 0.7 mg/dL (0.7-1.2) 06/11/19 04:02 Estimated GFR > 60 ml/min 06/11/19 04:02 BUN/Creatinine Ratio 51 % 06/11/19 04:02 Glucose 106 mg/dL (65-100) H 06/11/19 04:02 POC Glucose 88 (70-105) 06/11/19 11:42 Calcium 8.6 mg/dL (8.4-10.2) 06/11/19 04:02 Magnesium 1.70 mg/dL (1.7-2.3) 06/11/19 04:02 Total Bilirubin 0.70 mg/dL (0.1-1.2) 06/09/19 05:00 AST 30 units/L (5-40) 06/09/19 05:00 ALT 14 units/L (7-56) 06/09/19 05:00 Alkaline Phosphatase 77 units/L (35-129) 06/09/19 05:00 Total Protein 6.9 g/dL (6.3-8.2) 06/09/19 05:00 Albumin 3.7 g/dL (3.9-5) L 06/09/19 05:00 Albumin/Globulin Ratio 1.2 % 06/09/19 05:00 TSH 3.110 mlU/mL (0.270-4.200) 06/08/19 20:05 Free T4 1.67 ng/dL (0.76-1.46) H 06/08/19 20:05 Microbiology: Microbiology 06/09/19 14:20 Urine,Clean Catch Urine Culture - Final Polanco/IV: Voiding Method Diaper IV Catheter Type [Left Hand] INT / Saline Lock IV Catheter Type [Left Forearm INT / Saline Lock ] Active Medications - Current Medications Current Medications: Generic Name Dose Route Start Last Admin Trade Name Freq PRN Reason Stop Dose Admin Acetaminophen 650 mg 06/08/19 17:46 Tylenol PO Q4H PRN Pain MILD(1-3)/Fever >100.5/RUDD Amlodipine Besylate 5 mg 06/09/19 10:00 06/10/19 10:00 Amlodipine PO 5 mg DAILY PADMINI Administration Lipase/Protease/Amylase 1 each 06/09/19 08:[address] 10,500 Unit FEEDTUBE PRN PRN For Clogged Feeding Tube Atenolol 25 mg 06/08/19 22:00 06/10/19 21:48 Tenormin PO 25 mg BID PADMINI Administration Citalopram Hydrobromide 20 mg 06/09/19 10:00 06/11/19 10:55 Celexa PO 20 mg QDAY PADMINI Administration Heparin Sodium (Porcine) 5,000 unit 06/08/19 22:00 06/11/19 10:56 Heparin SUB-Q 5,000 unit Q12HR PADMINI Administration Ceftriaxone Sodium 1 gm in 50 mls @ 100 mls/hr 06/08/19 17:50 06/11/19 10:55 Rocephin/Ns 1 Gm/50 Ml IV 06/14/19 10:29 100 mls/hr Q24HR PADMINI Administration Protocol Dextrose/Sodium Chloride 1,000 mls @ 125 mls/hr 06/09/19 09:00 06/11/19 05:59 D5/0.45ns IV 125 mls/hr DIRECT PADMINI Administration Valproate Sodium 500 mg/ 105 mls @ 100 mls/hr 06/10/19 10:00 06/11/19 10:55 Sodium Chloride IV 100 mls/hr DAILY PADMINI Administration Ondansetron HCl 4 mg 06/08/19 17:46 06/10/19 21:49 Zofran IV 4 mg Q8H PRN Administration Nausea And Vomiting Pantoprazole Sodium 40 mg 06/09/19 10:00 06/11/19 10:55 Protonix PO 40 mg QDAY PADMINI Administration Quetiapine Fumarate 100 mg 06/09/19 16:00 05/01/20 10:55 Seroquel PO 100 mg BID PADMINI Administration Simple Syrup 15 ml 06/09/19 08:44 Simple Syrup FEEDTUBE PRN PRN Hypoglycemia Simple Syrup 30 ml 06/09/19 08:44 Simple Syrup FEEDTUBE PRN PRN Hypoglycemia Sodium Bicarbonate 325 mg 06/09/19 08:44 Sodium Bicarbonate FEEDTUBE PRN PRN For Clogged Feeding Tube Sodium Chloride 10 ml 06/08/19 22:00 06/11/19 10:56 Sodium Chloride Flush Syringe 10 Ml IV 10 ml BID PADMINI Administration Sodium Chloride 10 ml 06/08/19 17:46 Sodium Chloride Flush Syringe 10 Ml IV PRN PRN LINE FLUSH Nutrition/Malnutrition Assess - Dietary Evaluation Nutrition/Malnutrition Findings: Nutrition Notes Start: 06/09/19 0 9:01 Freq: Status: Active Protocol: Document 06/11/19 11:03 LP (Rec: 06/11/19 11:12 LP [id number]) Nutrition Notes Initial or Follow up Reassessment Current Diagnosis Hypertension Other Pertinent Diagnosis Dementia w/ behavioral disturbances, metabolic encephalopathy Current Diet Promote at 50ml/hr Labs/Tests K 3.5 Pertinent Medications D5 at 125ml/hr Height 5 ft 1 in Weight 56.9 kg [place] Body Weight (kg) 47.72 BMI 23.7 Weight Status Appropriate Subjective/Other Information Pt tolerating TF at goal rate. Percent of energy/protein needs met: 100%/100% Burn Absent Trauma Absent GI Symptoms None Current % PO Negligible Minimum of two criteria Yes Energy Intake (non-severe) <75% Estimated Energy Requirement >7 days Reduced [employer] Strength Measurably Reduced (severe) #1 Nutrition Diagnosis Malnutrition Diagnosis Progress(for reassessment Continues documentation) Is patient on ventilator? No Is Patient Ambulatory and/or Out of Bed No REE-([place] [facility]-confined to bed) [phone] Calculation Used for Recommendations [place] Additional Notes Protein: 68-85g (1.2-1.5g/kg) Fluid: 1 ml/kg Nutrition Intervention Change Diet Order: TF Nutrition Support: Promote 1.0 at 50ml/hr Flush 50ml q4h once resolved Kcal 1,200 Protein (gm) 75 Fluid (mL) 1,007 Goal #1 Meet at least 80% of kcal and protein needs via TF Anticipated Discharge Needs: unable to determine at this time Follow-Up By: 06/16/19 Additional Comments Follow for TF tolerance
[2019-06-11] MEDS: POTASSIUM CHLORIDE 10 MEQ 10 MEQ/100 ML BAG IV SCH ×2 (13:03→13:04)
--- NOTE | 2019-06-11 19:15 | XRay Report ---
Abdomen single view INDICATION: Abdominal pain IMPRESSION: Weighted enteric feeding tube terminates within the mid stomach. Signer Name: Steven Cristobal MD Signed: 06/11/2019 7:10 PM Workstation Name: [email or web address]
[2019-06-12] MEDS: D5W/0.45% NACL 1,000 ML IV SCH ×3 (04:41→22:24)
[2019-06-12] MEDS ORDERED: HYDROmorphone 1 MG/1 ML INJ IV ONE (04:57)
[2019-06-12] MEDS: cefTRIAXone/NS 1 GM/50 ML 1 GM/50 ML BAG IV SCH (10:44)
[2019-06-12] MEDS: HEPARIN 5,000 UNIT/1 ML VIAL SUB-Q SCH ×2 (10:44→22:12)
[2019-06-12] MEDS: QUEtiapine 100 MG TAB PO SCH ×2 (10:45→22:12)
[2019-06-12] MEDS: CITALOPRAM 20 MG TAB PO SCH (10:45)
[2019-06-12] MEDS: atenoloL 25 MG TAB PO SCH ×2 (10:45→22:12)
[2019-06-12] MEDS: amLODIPine 5 MG TAB PO SCH (10:46)
[2019-06-12] MEDS: PANTOPRAZOLE 40 MG TAB PO SCH (10:46)
[2019-06-12] MEDS: VALPROATE SODIUM 500 MG in SODIUM CHLORIDE 0.9% 100 ML IV SCH (11:48)
--- NOTE | 2019-06-12 20:53 | Progress Note ---
Assessment and Plan - Patient Problems (1) Metabolic encephalopathy Current Visit: Yes Status: Acute Plan to address problem: neuro check, aspiration precaution, seizure precaution, fall precautions, supportive care. IV fluid resuscitation therapy as clinically indicated. (2) Urinary tract infection Current Visit: Yes Status: Acute Qualifiers: Encounter type: initial encounter Plan to address problem: Urinalysis, CBC, CMP, IV antibiotic therapy, (3) Gastroesophageal reflux disease Current Visit: Yes Status: Acute Qualifiers: Esophagitis presence: without esophagitis Qualified Code(s): K21.9 - Gastro-esophageal reflux disease without esophagitis Plan to address problem: PPI therapy, supportive care. (4) Vascular dementia with behavioral disturbance Current Visit: No Status: Chronic Plan to address problem: Ativan as needed, aspiration precaution, fall precautions, neuro check (5) DVT prophylaxis Current Visit: Yes Status: Acute Plan to address problem: SCD to bilateral lower extremities while in bed, prophylactic heparin (6) Advance care planning Current Visit: Yes Status: Acute Plan to address problem: Disease education conducted, patient is full code, +30 minutes. Discharge planning to senior living facility with palliative/hospice care History Interval history: 78-year-old Female hospital day 4 with UTI, metabolic encephalopathy, debility, diminished oral intake, vascular dementia. Patient is pending discharge to senior living facility. Patient is bedbound, nonambulatory, and requires 6/6 assistance with activities of daily living. Patient has palliative performance score of 30%. Patient is a poor candidate for PEG tube placement and they do not improve survival. Patient has poor prognosis and is a candidate for palliative/hospice care. Discharge to SNF when bed available. Patient continues to be confused/lethargic. Patient mental status has not normalized with supportive care. Hospitalist Physical - Constitutional Vitals: Temp Pulse Resp BP Pulse Ox 97.8 F 82 18 123/71 99 06/12/19 19:52 06/12/19 19:52 06/12/19 19:52 06/12/19 19:52 06/12/19 19:52 General appearance: Present: no acute distress, cachectic, disheveled, other (Closing eyes, opening on calling out her name) - EENT Eyes: Present: PERRL ENT: hearing decreased - Neck Neck: Present: supple - Respiratory Respiratory: bilateral: CTA - Cardiovascular Rhythm: regular - Extremities Extremities: no ischemia Peripheral Pulses: within normal limits - Abdominal General gastrointestinal: soft, non-tender, non-distended - Integumentary Integumentary: Present: clear, dry - Psychiatric Psychiatric: no appropriate mood/affect, no intact judgment & insight, no memory intact Results - Labs CBC & Chem 7: 06/10/19 04:03 06/11/19 04:02 Labs: Laboratory Last Values WBC 7.2 K/mm3 (4.5-11.0) 06/10/19 04:03 RBC 3.49 M/mm3 (3.65-5.03) L 06/10/19 04:03 Hgb 10.9 gm/dl (10.1-14.3) 06/10/19 04:03 Hct 32.3 % (30.3-42.9) 06/10/19 04:03 MCV 93 fl (79-97) 06/10/19 04:03 MCH 31 pg (28-32) 06/10/19 04:03 MCHC 34 % (30-34) 06/10/19 04:03 RDW 14.1 % (13.2-15.2) 06/10/19 04:03 Plt Count 146 K/mm3 (140-440) 06/10/19 04:03 Lymph % (Auto) 22.0 % (13.4-35.0) 06/10/19 04:03 [place] % (Auto) 10.2 % (0.0-7.3) H 06/10/19 04:03 Eos % (Auto) 3.7 % (0.0-4.3) 06/10/19 04:03 Baso % (Auto) 0.6 % (0.0-1.8) 06/10/19 04:03 Lymph # 1.6 K/mm3 (1.2-5.4) 06/10/19 04:03 [place] # 0.7 K/mm3 (0.0-0.8) 06/10/19 04:03 Eos # 0.3 K/mm3 (0.0-0.4) 06/10/19 04:03 Baso # 0.0 K/mm3 (0.0-0.1) 06/10/19 04:03 Seg Neutrophils % 63.5 % (40.0-70.0) 06/10/19 04:03 Seg Neutrophils # 4.6 K/mm3 (1.8-7.7) 06/10/19 04:03 Sodium 138 mmol/L (137-145) 06/11/19 04:02 Potassium 3.5 mmol/L (3.6-5.0) L D 06/11/19 04:02 Chloride 101.1 mmol/L (98-107) 06/11/19 04:02 Carbon Dioxide 27 mmol/L (22-30) 06/11/19 04:02 Anion Gap 13 mmol/L 06/11/19 04:02 BUN 36 mg/dL (7-17) H 06/11/19 04:02 Creatinine 0.7 mg/dL (0.7-1.2) 06/11/19 04:02 Estimated GFR > 60 ml/min 06/11/19 04:02 BUN/Creatinine Ratio 51 % 06/11/19 04:02 Glucose 106 mg/dL (65-100) H 06/11/19 04:02 POC Glucose 135 (70-105) H 06/12/19 17:50 Calcium 8.6 mg/dL (8.4-10.2) 06/11/19 04:02 Magnesium 1.70 mg/dL (1.7-2.3) 06/11/19 04:02 Total Bilirubin 0.70 mg/dL (0.1-1.2) 06/09/19 05:00 AST 30 units/L (5-40) 06/09/19 05:00 ALT 14 units/L (7-56) 06/09/19 05:00 Alkaline Phosphatase 77 units/L (35-129) 06/09/19 05:00 Total Protein 6.9 g/dL (6.3-8.2) 06/09/19 05:00 Albumin 3.7 g/dL (3.9-5) L 06/09/19 05:00 Albumin/Globulin Ratio 1.2 % 06/09/19 05:00 TSH 3.110 mlU/mL (0.270-4.200) 06/08/19 20:05 Free T4 1.67 ng/dL (0.76-1.46) H 06/08/19 20:05 Polanco/IV: Voiding Method Indwelling Catheter IV Catheter Type [Left Hand] INT / Saline Lock IV Catheter Type [Left Forearm INT / Saline Lock ] Active Medications - Current Medications Current Medications: Generic Name Dose Route Start Last Admin Trade Name Freq PRN Reason Stop Dose Admin Acetaminophen 650 mg 06/08/19 17:46 Tylenol PO Q4H PRN Pain MILD(1-3)/Fever >100.5/RUDD Amlodipine Besylate 5 mg 06/09/19 10:00 06/12/19 10:46 Amlodipine PO 5 mg DAILY PADMINI Administration Lipase/Protease/Amylase 1 each 06/09/19 08:[address] 10,500 Unit FEEDTUBE PRN PRN For Clogged Feeding Tube Atenolol 25 mg 06/08/19 22:00 06/12/19 10:45 Tenormin PO 25 mg BID PADMINI Administration Citalopram Hydrobromide 20 mg 06/09/19 10:00 06/12/19 10:45 Celexa PO 20 mg QDAY PADMINI Administration Heparin Sodium (Porcine) 5,000 unit 06/08/19 22:00 06/12/19 10:44 Heparin SUB-Q 5,000 unit Q12HR PADMINI Administration Ceftriaxone Sodium 1 gm in 50 mls @ 100 mls/hr 06/08/19 17:50 06/12/19 10:44 Rocephin/Ns 1 Gm/50 Ml IV 06/14/19 10:29 100 mls/hr Q24HR PADMINI Administration Protocol Dextrose/Sodium Chloride 1,000 mls @ 125 mls/hr 06/09/19 09:00 06/12/19 14:33 D5/0.45ns IV 125 mls/hr DIRECT PADMINI Administration Valproate Sodium 500 mg/ 105 mls @ 100 mls/hr 06/10/19 10:00 06/12/19 11:48 Sodium Chloride IV 100 mls/hr DAILY PADMINI Administration Ondansetron HCl 4 mg 06/08/19 17:46 06/10/19 21:49 Zofran IV 4 mg Q8H PRN Administration Nausea And Vomiting Pantoprazole Sodium 40 mg 06/09/19 10:00 06/12/19 10:46 Protonix PO 40 mg QDAY PADMINI Administration Quetiapine Fumarate 100 mg 06/09/19 16:00 06/12/19 10:45 Seroquel PO 100 mg BID PADMINI Administration Simple Syrup 15 ml 06/09/19 08:44 Simple Syrup FEEDTUBE PRN PRN Hypoglycemia Simple Syrup 30 ml 06/09/19 08:44 Simple Syrup FEEDTUBE PRN PRN Hypoglycemia Sodium Bicarbonate 325 mg 06/09/19 08:44 Sodium Bicarbonate FEEDTUBE PRN PRN For Clogged Feeding Tube Sodium Chloride 10 ml 06/08/19 22:00 06/12/19 10:47 Sodium Chloride Flush Syringe 10 Ml IV Not Given BID PADMINI Sodium Chloride 10 ml 06/08/19 17:46 Sodium Chloride Flush Syringe 10 Ml IV PRN PRN LINE FLUSH Nutrition/Malnutrition Assess - Dietary Evaluation Nutrition/Malnutrition Findings: Nutrition Notes Start: 06/09/19 09:01 Freq: Status: Active Protocol: Document 06/11/19 11:03 LP (Rec: 06/11/19 11:12 LP [id number]) Nutrition Notes Initial or Follow up Reassessment Current Diagnosis Hypertension Other Pertinent Diagnosis Dementia w/ behavioral disturbances, metabolic encephalopathy Current Diet Promote at 50ml/hr Labs/Tests K 3.5 Pertinent Medications D5 at 125ml/hr Height 5 ft 1 in Weight 56.9 kg [place] Body Weight (kg) 47.72 BMI 23.7 Weight Status Appropriate Subjective/Other Information Pt tolerating TF at goal rate. Percent of energy/protein needs met: 100%/100% Burn Absent Trauma Absent GI Symptoms None Current % PO Negligible Minimum of two criteria Yes Energy Intake (non-severe) <75% Estimated Energy Requirement >7 days Reduced [place] Strength Measurably Reduced (severe) #1 Nutrition Diagnosis Malnutrition Diagnosis Progress(for reassessment Continues documentation) Is patient on ventilator? No Is Patient Ambulatory and/or Out of Bed No REE-([facility]-confined to bed) [phone] Calculation Used for Recommendations [facility] Additional Notes Protein: 68-85g (1.2-1.5g/kg) Fluid: 1 ml/kg Nutrition Intervention Change Diet Order: TF Nutrition Support: Promote 1.0 at 50ml/hr Flush 50ml q4h once resolved Kcal 1,200 Protein (gm) 75 Fluid (mL) 1,007 Goal #1 Meet at least 80% of kcal and protein needs via TF Anticipated Discharge Needs: unable to determine at this time Follow-Up By: 06/16/19 Additional Comments Follow for TF tolerance
[2019-06-13] MEDS: D5W/0.45% NACL 1,000 ML IV SCH (06:01)
[2019-06-13] MEDS: PANTOPRAZOLE 40 MG TAB PO SCH (11:21)
[2019-06-13] MEDS: amLODIPine 5 MG TAB PO SCH (11:21)
[2019-06-13] MEDS: CITALOPRAM 20 MG TAB PO SCH (11:21)
[2019-06-13] MEDS: atenoloL 25 MG TAB PO SCH ×2 (11:21→22:45)
[2019-06-13] MEDS: QUEtiapine 100 MG TAB PO SCH ×2 (11:21→22:29)
[2019-06-13] MEDS: HEPARIN 5,000 UNIT/1 ML VIAL SUB-Q SCH ×2 (11:22→22:28)
[2019-06-13] MEDS: cefTRIAXone/NS 1 GM/50 ML 1 GM/50 ML BAG IV SCH (11:36)
--- NOTE | 2019-06-13 15:01 | Progress Note ---
Assessment and Plan - Patient Problems (1) Metabolic encephalopathy Current Visit: Yes Status: Acute Plan to address problem: neuro check, aspiration precaution, seizure precaution, fall precautions, supportive care. IV fluid resuscitation therapy as clinically indicated. (2) Urinary tract infection Current Visit: Yes Status: Acute Qualifiers: Encounter type: initial encounter Plan to address problem: Urinalysis, CBC, CMP, IV antibiotic therapy, (3) Gastroesophageal reflux disease Current Visit: Yes Status: Acute Qualifiers: Esophagitis presence: without esophagitis Qualified Code(s): K21.9 - Gastro-esophageal reflux disease without esophagitis Plan to address problem: PPI therapy, supportive care. (4) Vascular dementia with behavioral disturbance Current Visit: No Status: Chronic Plan to address problem: Ativan as needed, aspiration precaution, fall precautions, neuro check, Pending SNF placement (5) DVT prophylaxis Current Visit: Yes Status: Acute Plan to address problem: SCD to bilateral lower extremities while in bed, prophylactic heparin (6) Advance care planning Current Visit: Yes Status: Acute Plan to address problem: Disease education conducted, patient is full code, +30 minutes. Discharge planning to [facility] facility with palliative/hospice care History Interval history: 78-year-old Female hospital day 5 with UTI, Metabolic Encephalopathy, Debility, diminished oral intake, vascular dementia without behavioral disturbance. Patient is pending discharge to [facility] facility. Patient is bedbound, nonambulatory, and requires 6/6 assistance with activities of daily living. Patient has palliative performance score of 30%. Patient is a poor candidate for PEG tube placement. Patient has poor prognosis and is a candidate for palliative/hospice care. Discharge to SNF when bed available. Patient continues to be confused/lethargic. Patient mental status has not normalized with supportive care. Hospitalist Physical - Constitutional Vitals: Temp Pulse Resp BP Pulse Ox 97.9 F 68 18 137/84 97 06/13/19 13:58 06/13/19 13:58 06/13/19 13:58 06/13/19 13:58 06/13/19 13:58 General appearance: Present: no acute distress, cachectic, disheveled, other (Closing eyes, opening on calling out her name) - EENT Eyes: Present: PERRL ENT: hearing decreased - Neck Neck: Present: supple - Respiratory Respiratory: bilateral: CTA - Cardiovascular Rhythm: regular - Extremities Extremities: no ischemia Peripheral Pulses: within normal limits - Abdominal General gastrointestinal: soft, non-tender, non-distended - Integumentary Integumentary: Present: clear, dry - Psychiatric Psychiatric: no appropriate mood/affect, no intact judgment & insight - Neurologic Neurologic: CNII-XII intact, no focal deficits, moves all extremities, no gait normal Results - Labs CBC & Chem 7: 06/10/19 04:03 06/11/19 04:02 Labs: Laboratory Last Values WBC 7.2 K/mm3 (4.5-11.0) 06/10/19 04:03 RBC 3.49 M/mm3 (3.65-5.03) L 06/10/19 04:03 Hgb 10.9 gm/dl (10.1-14.3) 06/10/19 04:03 Hct 32.3 % (30.3-42.9) 06/10/19 04:03 MCV 93 fl (79-97) 06/10/19 04:03 MCH 31 pg (28-32) 06/10/19 04:03 MCHC 34 % (30-34) 06/10/19 04:03 RDW 14.1 % (13.2-15.2) 06/10/19 04:03 Plt Count 146 K/mm3 (140-440) 06/10/19 04:03 Lymph % (Auto) 22.0 % (13.4-35.0) 06/10/19 04:03 [place] % (Auto) 10.2 % (0.0-7.3) H 06/10/19 04:03 Eos % (Auto) 3.7 % (0.0-4.3) 06/10/19 04:03 Baso % (Auto) 0.6 % (0.0-1.8) 06/10/19 04:03 Lymph # 1.6 K/mm3 (1.2-5.4) 06/10/19 04:03 [place] # 0.7 K/mm3 (0.0-0.8) 06/10/19 04:03 Eos # 0.3 K/mm3 (0.0-0.4) 06/10/19 04:03 Baso # 0.0 K/mm3 (0.0-0.1) 06/10/19 04:03 Seg Neutrophils % 63.5 % (40.0-70.0) 06/10/19 04:03 Seg Neutrophils # 4.6 K/mm3 (1.8-7.7) 06/10/19 04:03 Sodium 138 mmol/L (137-145) 06/11/19 04:02 Potassium 3.5 mmol/L (3.6-5.0) L D 06/11/19 04:02 Chloride 101.1 mmol/L (98-107) 06/11/19 04:02 Carbon Dioxide 27 mmol/L (22-30) 06/11/19 04:02 Anion Gap 13 mmol/L 06/11/19 04:02 BUN 36 mg/dL (7-17) H 06/11/19 04:02 Creatinine 0.7 mg/dL (0.7-1.2) 06/11/19 04:02 Estimated GFR > 60 ml/min 06/11/19 04:02 BUN/Creatinine Ratio 51 % 06/11/19 04:02 Glucose 106 mg/dL (65-100) H 06/11/19 04:02 POC Glucose 149 (70-105) H 06/13/19 11:44 Calcium 8.6 mg/dL (8.4-10.2) 06/11/19 04:02 Magnesium 1.70 mg/dL (1.7-2.3) 06/11/19 04:02 Total Bilirubin 0.70 mg/dL (0.1-1.2) 06/09/19 05:00 AST 30 units/L (5-40) 06/09/19 05:00 ALT 14 units/L (7-56) 06/09/19 05:00 Alkaline Phosphatase 77 units/L (35-129) 06/09/19 05:00 Total Protein 6.9 g/dL (6.3-8.2) 06/09/19 05:00 Albumin 3.7 g/dL (3.9-5) L 06/09/19 05:00 Albumin/Globulin Ratio 1.2 % 06/09/19 05:00 TSH 3.110 mlU/mL (0.270-4.200) 06/08/19 20:05 Free T4 1.67 ng/dL (0.76-1.46) H 06/08/19 20:05 [place]/IV: Voiding Method Indwelling Catheter IV Catheter Type [Left Hand] INT / Saline Lock IV Catheter Type [Left Forearm INT / Saline Lock ] Active Medications - Current Medications Current Medications: Generic Name Dose Route Start Last Admin Trade Name Freq PRN Reason Stop Dose Admin Acetaminophen 650 mg 06/08/19 17:46 Tylenol PO Q4H PRN Pain MILD(1-3)/Fever >100.5/RUDD Amlodipine Besylate 5 mg 06/09/19 10:00 06/13/19 11:21 Amlodipine PO 5 mg DAILY PADMINI Administration Lipase/Protease/Amylase 1 each 06/09/19 08:[address] 10,500 Unit FEEDTUBE PRN PRN For Clogged Feeding Tube Atenolol 25 mg 06/08/19 22:00 06/13/19 11:21 Tenormin PO 25 mg BID PADMINI Administration Citalopram Hydrobromide 20 mg 06/09/19 10:00 06/13/19 11:21 Celexa PO 20 mg QDAY PADMINI Administration Heparin Sodium (Porcine) 5,000 unit 06/08/19 22:00 06/13/19 11:22 Heparin SUB-Q 5,000 unit Q12HR PADMINI Administration Ceftriaxone Sodium 1 gm in 50 mls @ 100 mls/hr 06/08/19 17:50 06/13/19 11:36 Rocephin/Ns 1 Gm/50 Ml IV 06/14/19 10:29 100 mls/hr Q24HR PADMINI Administration Protocol Dextrose/Sodium Chloride 1,000 mls @ 125 mls/hr 06/09/19 09:00 06/13/19 06:01 D5/0.45ns IV 125 mls/hr DIRECT PADMINI Administration Valproate Sodium 500 mg/ 105 mls @ 100 mls/hr 06/10/19 10:00 06/12/19 11:48 Sodium Chloride IV 100 mls/hr DAILY PADMINI Administration Ondansetron HCl 4 mg 06/08/19 17:46 06/10/19 21:49 Zofran IV 4 mg Q8H PRN Administration Nausea And Vomiting Pantoprazole Sodium 40 mg 06/09/19 10:00 06/13/19 11:21 Protonix PO 40 mg QDAY PADMINI Administration Quetiapine Fumarate 100 mg 06/09/19 16:00 06/13/19 11:21 Seroquel PO 100 mg BID PADMINI Administration Simple Syrup 15 ml 06/09/19 08:44 Simple Syrup FEEDTUBE PRN PRN Hypoglycemia Simple Syrup 30 ml 06/09/19 08:44 Simple Syrup FEEDTUBE PRN PRN Hypoglycemia Sodium Bicarbonate 325 mg 06/09/19 08:44 Sodium Bicarbonate FEEDTUBE PRN PRN For Clogged Feeding Tube Sodium Chloride 10 ml 06/08/19 22:00 06/13/19 11:37 Sodium Chloride Flush Syringe 10 Ml IV 10 ml BID PADMINI Administration Sodium Chloride 10 ml 06/08/19 17:46 Sodium Chloride Flush Syringe 10 Ml IV PRN PRN LINE FLUSH Nutrition/Malnutrition Assess - Dietary Evaluation Nutrition/Malnutrition Findings: Nutrition Notes Start: 06/09/19 09:01 Freq: Status: Active Protocol: Document 06/11/19 11:03 LP (Rec: 06/11/19 11:12 LP [id number]) Nutrition Notes Initial or Follow up Reassessment Current Diagnosis Hypertension Other Pertinent Diagnosis Dementia w/ behavioral disturbances, metabolic encephalopathy Current Diet Promote at 50ml/hr Labs/Tests K 3.5 Pertinent Medications D5 at 125ml/hr Height 5 ft 1 in Weight 56.9 kg [place] Body Weight (kg) 47.72 BMI 23.7 Weight Status Appropriate Subjective/Other Information Pt tolerating TF at goal rate. Percent of energy/protein needs met: 100%/100% Burn Absent Trauma Absent GI Symptoms None Current % PO Negligible Minimum of two criteria Yes Energy Intake (non-severe) <75% Estimated Energy Requirement >7 days Reduced Food [employer] Research Scientist Strength Measurably Reduced (severe) #1 Nutrition Diagnosis Malnutrition Diagnosis Progress(for reassessment Continues documentation) Is patient on ventilator? No Is Patient Ambulatory and/or Out of Bed No REE-([place]-confined to bed) 9926.364 [facility] Additional Notes Protein: 68-85g (1.2-1.5g/kg) Fluid: 1 ml/kg Nutrition Intervention Change Diet Order: TF Nutrition Support: Promote 1.0 at 50ml/hr Flush 50ml q4h once resolved Kcal 1,200 Protein (gm) 75 Fluid (mL) 1,007 Goal #1 Meet at least 80% of kcal and protein needs via TF Anticipated Discharge Needs: unable to determine at this time Follow-Up By: 06/16/19 Additional Comments Follow for TF tolerance
[2019-06-13] MEDS: VALPROATE SODIUM 500 MG in SODIUM CHLORIDE 0.9% 100 ML IV SCH (15:24)
[2019-06-14] MEDS: D5W/0.45% NACL 1,000 ML IV SCH ×2 (00:37→20:22)
[2019-06-14] MEDS: QUEtiapine 100 MG TAB PO SCH ×2 (09:33→22:02)
[2019-06-14] MEDS: amLODIPine 5 MG TAB PO SCH (09:33)
[2019-06-14] MEDS: PANTOPRAZOLE 40 MG TAB PO SCH (09:33)
[2019-06-14] MEDS: cefTRIAXone/NS 1 GM/50 ML 1 GM/50 ML BAG IV SCH (09:33)
[2019-06-14] MEDS: atenoloL 25 MG TAB PO SCH ×2 (09:34→22:02)
[2019-06-14] MEDS: HEPARIN 5,000 UNIT/1 ML VIAL SUB-Q SCH ×2 (09:47→22:02)
[2019-06-14] MEDS: CITALOPRAM 20 MG TAB PO SCH (13:01)
[2019-06-14] MEDS: VALPROATE SODIUM 500 MG in SODIUM CHLORIDE 0.9% 100 ML IV SCH (13:13)
--- NOTE | 2019-06-14 14:56 | Progress Note ---
Assessment and Plan - Patient Problems (1) Metabolic encephalopathy Current Visit: Yes Status: Acute Plan to address problem: neuro check, aspiration precaution, seizure precaution, fall precautions, supportive care. IV fluid resuscitation therapy as clinically indicated. (2) Urinary tract infection Current Visit: Yes Status: Acute Qualifiers: Encounter type: initial encounter Plan to address problem: Urinalysis, CBC, CMP, IV antibiotic therapy, (3) Gastroesophageal reflux disease Current Visit: Yes Status: Acute Qualifiers: Esophagitis presence: without esophagitis Qualified Code(s): K21.9 - Gastro-esophageal reflux disease without esophagitis Plan to address problem: PPI therapy, supportive care. (4) Vascular dementia with behavioral disturbance Current Visit: No Status: Chronic Plan to address problem: Ativan as needed, aspiration precaution, fall precautions, neuro check, Pending SNF placement (5) DVT prophylaxis Current Visit: Yes Status: Acute Plan to address problem: SCD to bilateral lower extremities while in bed, prophylactic heparin (6) Advance care planning Current Visit: Yes Status: Acute Plan to address problem: Disease education conducted, patient is full code, +30 minutes. [facility] History Interval history: 78-year-old Female hospital day 6 with UTI, Metabolic Encephalopathy, Debility, diminished oral intake, vascular dementia without behavioral disturbance. [facility] Patient is bedbound, nonambulatory, and requires 6/6 assistance with activities of daily living. Patient has palliative performance score of 30%. Patient is a poor candidate for PEG tube placement. Patient has poor prognosis and is a candidate for palliative/hospice care. Discharge to SNF when bed available. Patient continues to be confused/lethargic. Patient mental status has not normalized with supportive care. Awaiting placement. Hospitalist Physical - Constitutional Vitals: Temp Pulse Resp BP Pulse Ox 97.3 F L 70 16 129/73 96 06/14/19 11:22 06/14/19 11:22 06/14/19 11:22 06/14/19 11:22 06/14/19 11:22 General appearance: Present: no acute distress, cachectic, disheveled, other ( Closing eyes, opening on calling out her name) - EENT Eyes: Present: PERRL ENT: hearing decreased - Neck Neck: Present: supple - Respiratory Respiratory effort: normal Respiratory: bilateral: CTA - Cardiovascular Rhythm: regular Heart Sounds: Present: S1 & S2 - Extremities Extremities: no ischemia Peripheral Pulses: within normal limits - Abdominal General gastrointestinal: soft, non-tender, non-distended - Integumentary Integumentary: Present: clear, dry - Psychiatric Psychiatric: no appropriate mood/affect, no intact judgment & insight, no memory intact, agitated Results - Labs CBC & Chem 7: 06/10/19 04:03 06/11/19 04:02 Labs: Laboratory Last Values WBC 7.2 K/mm3 (4.5-11.0) 06/10/19 04:03 RBC 3.49 M/mm3 (3.65-5.03) L 06/10/19 04:03 Hgb 10.9 gm/dl (10.1-14.3) 06/10/19 04:03 Hct 32.3 % (30.3-42.9) 06/10/19 04:03 MCV 93 fl (79-97) 06/10/19 04:03 MCH 31 pg (28-32) 06/10/19 04:03 MCHC 34 % (30-34) 06/10/19 04:03 RDW 14.1 % (13.2-15.2) 06/10/19 04:03 Plt Count 146 K/mm3 (140-440) 06/10/19 04:03 Lymph % (Auto) 22.0 % (13.4-35.0) 06/10/19 04:03 [place] % (Auto) 10.2 % (0.0-7.3) H 06/10/19 04:03 Eos % (Auto) 3.7 % (0.0-4.3) 06/10/19 04:03 Baso % (Auto) 0.6 % (0.0-1.8) 06/10/19 04:03 Lymph # 1.6 K/mm3 (1.2-5.4) 06/10/19 04:03 [place] # 0.7 K/mm3 (0.0-0.8) 06/10/19 04:03 Eos # 0.3 K/mm3 (0.0-0.4) 06/10/19 04:03 Baso # 0.0 K/mm3 (0.0-0.1) 06/10/19 04:03 Seg Neutrophils % 63.5 % (40.0-70.0) 06/10/19 04:03 Seg Neutrophils # 4.6 K/mm3 (1.8-7.7) 06/10/19 04:03 Sodium 138 mmol/L (137-145) 06/11/19 04:02 Potassium 3.5 mmol/L (3.6-5.0) L D 06/11/19 04:02 Chloride 101.1 mmol/L (98-107) 06/11/19 04:02 Carbon Dioxide 27 mmol/L (22-30) 06/11/19 04:02 Anion Gap 13 mmol/L 06/11/19 04:02 BUN 36 mg/dL (7-17) H 06/11/19 04:02 Creatinine 0.7 mg/dL (0.7-1.2) 06/11/19 04:02 Estimated GFR > 60 ml/min 06/11/19 04:02 BUN/Creatinine Ratio 51 % 06/11/19 04:02 Glucose 106 mg/dL (65-100) H 06/11/19 04:02 POC Glucose 106 (70-105) H 06/14/19 05:56 Calcium 8.6 mg/dL (8.4-10.2) 06/11/19 04:02 Magnesium 1.70 mg/dL (1.7-2.3) 06/11/19 04:02 Total Bilirubin 0.70 mg/dL (0.1-1.2) 06/09/19 05:00 AST 30 units/L (5-40) 06/09/19 05:00 ALT 14 units/L (7-56) 06/09/19 05:00 Alkaline Phosphatase 77 units/L (35-129) 06/09/19 05:00 Total Protein 6.9 g/dL (6.3-8.2) 06/09/19 05:00 Albumin 3.7 g/dL (3.9-5) L 06/09/19 05:00 Albumin/Globulin Ratio 1.2 % 06/09/19 05:00 TSH 3.110 mlU/mL (0.270-4.200) 06/08/19 20:05 Free T4 1.67 ng/dL (0.76-1.46) H 06/08/19 20:05 [place]/IV: Voiding Method Indwelling Catheter IV Catheter Type [Left Hand] INT / Saline Lock IV Catheter Type [Left Forearm INT / Saline Lock ] Active Medications - Current Medications Current Medications: Generic Name Dose Route Start Last Admin Trade Name Freq PRN Reason Stop Dose Admin Acetaminophen 650 mg 06/08/19 17:46 Tylenol PO Q4H PRN Pain MILD(1-3)/Fever >100.5/RUDD Amlodipine Besylate 5 mg 06/09/19 10:00 06/14/19 09:33 Amlodipine PO 5 mg DAILY PADMINI Administration Lipase/Protease/Amylase 1 each 06/09/19 08:44 Pancreaze 10,500 Unit FEEDTUBE PRN PRN For Clogged Feeding Tube Atenolol 25 mg 06/08/19 22:00 06/14/19 09:34 Tenormin PO 25 mg BID PADMINI Administration Citalopram Hydrobromide 20 mg 06/09/19 10:00 06/14/19 13:01 Celexa PO 20 mg QDAY PADMINI Administration Heparin Sodium (Porcine) 5,000 unit 06/08/19 22:00 06/14/19 09:47 Heparin SUB-Q 5,000 unit Q12HR PADMINI Administration Dextrose/Sodium Chloride 1,000 mls @ 125 mls/hr 06/09/19 09:00 06/14/19 00:37 D5/0.45ns IV 125 mls/hr DIRECT PADMINI Administration Valproate Sodium 500 mg/ 105 mls @ 100 mls/hr 06/10/19 10:00 06/14/19 13:13 Sodium Chloride IV 100 mls/hr DAILY PADMINI Administration Ondansetron HCl 4 mg 06/08/19 17:46 06/10/19 21:49 Zofran IV 4 mg Q8H PRN Administration Nausea And Vomiting Pantoprazole Sodium 40 mg 06/09/19 10:00 06/14/19 09:33 Protonix PO 40 mg QDAY PADMINI Administration Quetiapine Fumarate 100 mg 06/09/19 16:00 06/14/19 09:33 Seroquel PO 100 mg BID PADMINI Administration Simple Syrup 15 ml 06/09/19 08:44 Simple Syrup FEEDTUBE PRN PRN Hypoglycemia Simple Syrup 30 ml 06/09/19 08:44 Simple Syrup FEEDTUBE PRN PRN Hypoglycemia Sodium Bicarbonate 325 mg 06/09/19 08:44 Sodium Bicarbonate FEEDTUBE PRN PRN For Clogged Feeding Tube Sodium Chloride 10 ml 06/08/19 22:00 06/14/19 09:34 Sodium Chloride Flush Syringe 10 Ml IV 10 ml BID PADMINI Administration Sodium Chloride 10 ml 06/08/19 17:46 Sodium Chloride Flush Syringe 10 Ml IV PRN PRN LINE FLUSH Nutrition/Malnutrition Assess - Dietary Evaluation Nutrition/Malnutrition Findings: Nutrition Notes Start: 06/09/19 0 9:01 Freq: Status: Active Protocol: Document 06/11/19 11:03 LP (Rec: 06/11/19 11:12 LP [id number]) Nutrition Notes Initial or Follow up Reassessment Current Diagnosis Hypertension Other Pertinent Diagnosis Dementia w/ behavioral disturbances, metabolic encephalopathy Current Diet Promote at 50ml/hr Labs/Tests K 3.5 Pertinent Medications D5 at 125ml/hr Height 5 ft 1 in Weight 56.9 kg [place] Body Weight (kg) 47.72 BMI 23.7 Weight Status Appropriate Subjective/Other Information Pt tolerating TF at goal rate. Percent of energy/protein needs met: 100%/100% Burn Absent Trauma Absent GI Symptoms None Current % PO Negligible Minimum of two criteria Yes Energy Intake (non-severe) <75% Estimated Energy Requirement >7 days Reduced Sports Medicine Physician Strength Measurably Reduced (severe) #1 Nutrition Diagnosis Malnutrition Diagnosis Progress(for reassessment Continues documentation) Is patient on ventilator? No Is Patient Ambulatory and/or Out of Bed No REE-([facility]confined [facility]) 1196.364 Calculation Used for Recommendations [facility] Additional Notes Protein: 68-85g (1.2-1.5g/kg) Fluid: 1 ml/kg Nutrition Intervention Change Diet Order: TF Nutrition Support: Promote 1.0 at 50ml/hr Flush 50ml q4h once resolved Kcal 1,200 Protein (gm) 75 Fluid (mL) 1,007 Goal #1 Meet at least 80% of kcal and protein needs via TF Anticipated Discharge Needs: unable to determine at this time Follow-Up By: 06/16/19 Additional Comments Follow for TF tolerance
[2019-06-15] MEDS: D5W/0.45% NACL 1,000 ML IV SCH ×3 (03:19→18:05)
--- NOTE | 2019-06-15 10:30 | Progress Note ---
Assessment and Plan Assessment and plan: --Abnormal swallow eval/recommend PEG placement continue NG tube feeding, GI consult, for PEG placement N.p.o. from midnight --Metabolic encephalopathy Current Visit: Yes Status: Acute. Multifactorial , psych conditions , dementia , poor oral intake , possible UTI CT head no acute abnormalities noted, neurochecks, treat underlying cause, supportive care Psych evaluation --Failure to thrive in adult/poor oral intake IV fluids, nutrition supplements, Dobbhoff placement, tube feeding until she is awake and able to eat --Possible urinary tract infection Current Visit: Yes Status: Acute Completed antibiotics, cultures negative to date -- Gastroesophageal reflux disease Current Visit: Yes Status: Acute PPI therapy, supportive care. --Vascular dementia with behavioral disturbance Current Visit: No Status: Chronic Ativan as needed, aspiration precaution, fall precautions, neuro check. PT OT --Abnormal TFTs Current Visit: Yes Status: Acute Abnormal thyroid function tests Normal TSH, very minimal elevation of T4 Will monitor and repeat the tests in a week -- DVT prophylaxis Current Visit: Yes Status: Acute SCD to bilateral lower extremities while in bed, prophylactic heparin -- Advance care planning/full CODE STATUS Current Visit: Yes Status: Acute Note; I discussed extensively with patient's daughter Anel Tellez at [phone] This morning discussed about speech and swallow recommendations of PEG placement Discussed briefly why the patient needs PEG, PEG procedure, GI consult She had numerous questions answered all of them, and patient wants to discuss more with the GI And then will make the decision. Consulted GI History Interval history: Patient seen and examined medical records reviewed Patient is confused noncommunicative Receiving Dobbhoff feeds Speech and swallow recommended PEG placement Patient is in mild distress Vital signs noted Hospitalist Physical - Constitutional Vitals: Temp Pulse Resp BP Pulse Ox 97.0 F L 78 20 156/89 100 06/15/19 07:48 06/15/19 07:48 06/15/19 07:48 06/15/19 07:48 06/15/19 07:48 General appearance: Present: no acute distress, cachectic, disheveled, other (Closing eyes, opening on calling out her name) - EENT Eyes: Present: PERRL, EOM intact - Neck Neck: Present: supple, normal ROM - Respiratory Respiratory effort: normal Respiratory: bilateral: diminished, negative: rales, rhonchi, wheezing - Cardiovascular Rhythm: regular Heart Sounds: Present: S1 & S2 - Extremities Extremities: no ischemia, No edema - Abdominal General gastrointestinal: soft, non-tender, non-distended, normal bowel sounds - Integumentary Integumentary: Present: clear, warm - Psychiatric Psychiatric: other (Confused) - Neurologic Neurologic: moves all extremities Results - Labs CBC & Chem 7: 06/10/19 04:03 06/11/19 04:02 Labs: Laboratory Last Values WBC 7.2 K/mm3 (4.5-11.0) 06/10/19 04:03 RBC 3.49 M/mm3 (3.65-5.03) L 06/10/19 04:03 Hgb 10.9 gm/dl (10.1-14.3) 06/10/19 04:03 Hct 32.3 % (30.3-42.9) 06/10/19 04:03 MCV 93 fl (79-97) 06/10/19 04:03 MCH 31 pg (28-32) 06/10/19 04:03 MCHC 34 % (30-34) 06/10/19 04:03 RDW 14.1 % (13.2-15.2) 06/10/19 04:03 Plt Count 146 K/mm3 (140-440) 06/10/19 04:03 Lymph % (Auto) 22.0 % (13.4-35.0) 06/10/19 04:03 [place] % (Auto) 10.2 % (0.0-7.3) H 06/10/19 04:03 Eos % (Auto) 3.7 % (0.0-4.3) 06/10/19 04:03 Baso % (Auto) 0.6 % (0.0-1.8) 06/10/19 04:03 Lymph # 1.6 K/mm3 (1.2-5.4) 06/10/19 04:03 [place] # 0.7 K/mm3 (0.0-0.8) 06/10/19 04:03 Eos # 0.3 K/mm3 (0.0-0.4) 06/10/19 04:03 Baso # 0.0 K/mm3 (0.0-0.1) 06/10/19 04:03 Seg Neutrophils % 63.5 % (40.0-70.0) 06/10/19 04:03 Seg Neutrophils # 4.6 K/mm3 (1.8-7.7) 06/10/19 04:03 Sodium 138 mmol/L (137-145) 06/11/19 04:02 Potassium 3.5 mmol/L (3.6-5.0) L D 06/11/19 04:02 Chloride 101.1 mmol/L (98-107) 06/11/19 04:02 Carbon Dioxide 27 mmol/L (22-30) 06/11/19 04:02 Anion Gap 13 mmol/L 06/11/19 04:02 BUN 36 mg/dL (7-17) H 06/11/19 04:02 Creatinine 0.7 mg/dL (0.7-1.2) 06/11/19 04:02 Estimated GFR > 60 ml/min 06/11/19 04:02 BUN/Creatinine Ratio 51 % 06/11/19 04:02 Glucose 106 mg/dL (65-100) H 06/11/19 04:02 POC Glucose 141 (70-105) H 06/15/19 05:19 Calcium 8.6 mg/dL (8.4-10.2) 06/11/19 04:02 Magnesium 1.70 mg/dL (1.7-2.3) 06/11/19 04:02 Total Bilirubin 0.70 mg/dL (0.1-1.2) 06/09/19 05:00 AST 30 units/L (5-40) 06/09/19 05:00 ALT 14 units/L (7-56) 06/09/19 05:00 Alkaline Phosphatase 77 units/L (35-129) 06/09/19 05:00 Total Protein 6.9 g/dL (6.3-8.2) 06/09/19 05:00 Albumin 3.7 g/dL (3.9-5) L 06/09/19 05:00 Albumin/Globulin Ratio 1.2 % 06/09/19 05:00 TSH 3.110 mlU/mL (0.270-4.200) 06/08/19 20:05 Free T4 1.67 ng/dL (0.76-1.46) H 06/08/19 20:05 Polanco/IV: Voiding Method Indwelling Catheter IV Catheter Type [Right Peripheral IV Forearm] IV Catheter Type [Left Hand] INT / Saline Lock IV Catheter Type [Left Forearm INT / Saline Lock ] Active Medications - Current Medications Current Medications: Generic Name Dose Route Start Last Admin Trade Name Freq PRN Reason Stop Dose Admin Acetaminophen 650 mg 06/08/19 17:46 Tylenol PO Q4H PRN Pain MILD(1-3)/Fever >100.5/RUDD Amlodipine Besylate 5 mg 06/09/19 10:00 06/14/19 09:33 Amlodipine PO 5 mg DAILY PADMINI Administration Lipase/Protease/Amylase 1 each 06/09/19 08:[address] 10,500 Unit FEEDTUBE PRN PRN For Clogged Feeding Tube Atenolol 25 mg 06/08/19 22:00 06/14/19 22:02 Tenormin PO 25 mg BID PADMINI Administration Citalopram Hydrobromide 20 mg 06/09/19 10:00 06/14/19 13:01 Celexa PO 20 mg QDAY PADMINI Administration Heparin Sodium (Porcine) 5,000 unit 06/08/19 22:00 06/14/19 22:02 Heparin SUB-Q 5,000 unit Q12HR PADMINI Administration Dextrose/Sodium Chloride 1,000 mls @ 125 mls/hr 06/09/19 09:00 06/15/19 03:19 D5/0.45ns IV 125 mls/hr DIRECT PADMINI Administration Valproate Sodium 500 mg/ 105 mls @ 100 mls/hr 06/10/19 10:00 06/14/19 18:41 Sodium Chloride IV Infused DAILY PADMINI Infusion Ondansetron HCl 4 mg 06/08/19 17:46 06/10/19 21:49 Zofran IV 4 mg Q8H PRN Administration Nausea And Vomiting Pantoprazole Sodium 40 mg 06/09/19 10:00 06/14/19 09:33 Protonix PO 40 mg QDAY PADMINI Administration Quetiapine Fumarate 100 mg 06/09/19 16:00 06/14/19 22:02 Seroquel PO 100 mg BID PADMINI Administration Simple Syrup 15 ml 06/09/19 08:44 Simple Syrup FEEDTUBE PRN PRN Hypoglycemia Simple Syrup 30 ml 06/09/19 08:44 Simple Syrup FEEDTUBE PRN PRN Hypoglycemia Sodium Bicarbonate 325 mg 06/09/19 08:44 Sodium Bicarbonate FEEDTUBE PRN PRN For Clogged Feeding Tube Sodium Chloride 10 ml 06/08/19 22:00 06/14/19 22:03 Sodium Chloride Flush Syringe 10 Ml IV 10 ml BID PADMINI Administration Sodium Chloride 10 ml 06/08/19 17:46 Sodium Chloride Flush Syringe 10 Ml IV PRN PRN LINE FLUSH Nutrition/Malnutrition Assess - Dietary Evaluation Nutrition/Malnutrition Findings: Nutrition Notes Start: 06/09/19 09:01 Freq: Status: Active Protocol: Document 06/11/19 11:03 LP (Rec: 06/11/19 11:12 LP [id number]) Nutrition Notes Initial or Follow up Reassessment Current Diagnosis Hypertension Other Pertinent Diagnosis Dementia w/ behavioral disturbances, metabolic encephalopathy Current Diet Promote at 50ml/hr Labs/Tests K 3.5 Pertinent Medications D5 at 125ml/hr Height 5 ft 1 in Weight 56.9 kg [place] Body Weight (kg) 47.72 BMI 23.7 Weight Status Appropriate Subjective/Other Information Pt tolerating TF at goal rate. 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 No Is Patient Ambulatory and/or Out of Bed No REE-([facility]-confined to bed) 1196.364 Calculation Used for Recommendations [facility] Additional Notes Protein: 68-85g (1.2-1.5g/kg) Fluid: 1 ml/kg Nutrition Intervention Change Diet Order: TF Nutrition Support: Promote 1.0 at 50ml/hr Flush 50ml q4h once resolved Kcal 1,200 Protein (gm) 75 Fluid (mL) 1,007 Goal #1 Meet at least 80% of kcal and protein needs via TF Anticipated Discharge Needs: unable to determine at this time Follow-Up By: 06/16/19 Additional Comments Follow for TF tolerance
[2019-06-15] MEDS: amLODIPine 5 MG TAB PO SCH (10:41)
[2019-06-15] MEDS: PANTOPRAZOLE 40 MG TAB PO SCH (10:41)
[2019-06-15] MEDS: atenoloL 25 MG TAB PO SCH ×2 (10:41→21:40)
[2019-06-15] MEDS: QUEtiapine 100 MG TAB PO SCH ×2 (10:42→21:40)
[2019-06-15] MEDS: HEPARIN 5,000 UNIT/1 ML VIAL SUB-Q SCH ×2 (10:46→21:40)
[2019-06-15] MEDS: CITALOPRAM 20 MG TAB PO SCH (10:46)
[2019-06-15] MEDS: VALPROATE SODIUM 500 MG in SODIUM CHLORIDE 0.9% 100 ML IV SCH (10:46)
--- NOTE | 2019-06-15 14:48 | Gastroenterology Consultation ---
History of Present Illness - Reason for Consult Consult date: 06/15/19 oropharyngeal dysphagia Requesting physician: DICK CLARKE - History of Present Illness The patient is a 78 yo female with h/o advanced dementia presenting with worsening confusion/mental status and subsequent loss of po intake. She currently has dobhoff in place and receiving tube feeds. in restraints at the time exam, awake/arousable but unable to provide history due to mental status. She has been evaluated by speech therapy with recommendations for PEG tube placement. Discussed with patient's daughter Essence over the phone. Past History Past Medical History: GERD, hypertension, other (See HPI) Past Surgical History: Other (Esophageal dilatation) Social history: . denies: smoking, alcohol abuse, prescription drug abuse Family history: no significant family history (Reviewed) Medications and Allergies Allergies Allergy/AdvReac Type Severity Reaction Status Date / Time guaifenesin [From Mucinex] Allergy Vomiting Verified 05/25/19 15:25 sulfamethoxazole Allergy Unknown Verified 05/25/19 15:24 [From Bactrim] trimethoprim [From Bactrim] Allergy Unknown Verified 05/25/19 15:24 Home Medications Medication Instructions Recorded Confirmed Last Taken Type Aricept 0.5 mg PO QHS 05/25/19 06/08/19 Unknown History Celexa 20 mg PO DAILY 05/25/19 06/08/19 Unknown History KlonoPIN 1 mg PO BID 05/25/19 06/08/19 Unknown History Namenda Xr 5 mg PO BID 05/25/19 06/08/19 Unknown History SEROquel 200 mg PO BID 05/25/19 06/08/19 Unknown History amLODIPine 5 mg PO DAILY 05/25/19 06/08/19 Unknown History atenoloL [Tenormin] 25 mg PO BID 05/25/19 06/08/[address] [Ivonne Olivares] 125 mg PO BID tablet 06/08/19 06/08/19 Unknown Rx Pantoprazole [Protonix TAB] 40 mg PO QDAY tablet 06/08/19 06/08/19 Unknown Rx clonazePAM [KlonoPIN] 1 mg PO BID tablet 06/08/19 06/08/19 Unknown Rx Active Meds: Active Medications Acetaminophen (Tylenol) 650 mg PO Q4H PRN PRN Reason: Pain MILD(1-3)/Fever >100.5/RUDD Amlodipine Besylate (Amlodipine) 5 mg PO DAILY [facility] Last Admin: 06/15/19 10:41 Dose: 5 mg Documented by: Lipase/Protease/Amylase (Pancreaze Dr 10,500 Unit) 1 each FEEDTUBE PRN PRN PRN Reason: For Clogged Feeding Tube Atenolol (Tenormin) 25 mg PO BID [facility] Last Admin: 06/15/19 10:41 Dose: 25 mg Documented by: Citalopram Hydrobromide (Celexa) 20 mg PO QDAY [facility] Last Admin: 06/15/19 10:46 Dose: 20 mg Documented by: Heparin Sodium (Porcine) (Heparin) 5,000 unit SUB-Q Q12HR [facility] Last Admin: 06/15/19 10:46 Dose: 5,000 unit Documented by: Dextrose/Sodium Chloride (D5/0.45ns) 1,000 mls @ 125 mls/hr IV DIRECT [facility] Last Admin: 06/15/19 13:31 Dose: 125 mls/hr Documented by: Valproate Sodium 500 mg/ (Sodium Chloride) 105 mls @ 100 mls/hr IV DAILY [facility] Last Admin: 06/15/19 10:46 Dose: 100 mls/hr Documented by: Ondansetron HCl (Zofran) 4 mg IV Q8H PRN PRN Reason: Nausea And Vomiting Last Admin: 06/10/19 21:49 Dose: 4 mg Documented by: Pantoprazole Sodium (Protonix) 40 mg PO QDAY [facility] Last Admin: 06/15/19 10:41 Dose: 40 mg Documented by: Quetiapine Fumarate (Seroquel) 100 mg PO BID [facility] Last Admin: 06/15/19 10:42 Dose: 100 mg Documented by: Simple Syrup (Simple Syrup) 15 ml FEEDTUBE PRN PRN PRN Reason: Hypoglycemia Simple Syrup (Simple Syrup) 30 ml FEEDTUBE PRN PRN PRN Reason: Hypoglycemia Sodium Bicarbonate (Sodium Bicarbonate) 325 mg FEEDTUBE PRN PRN PRN Reason: For Clogged Feeding Tube Sodium Chloride (Sodium Chloride Flush Syringe 10 Ml) 10 ml IV BID [facility] Last Admin: 06/15/19 10:47 Dose: Not Given Documented by: Sodium Chloride (Sodium Chloride Flush Syringe 10 Ml) 10 ml IV PRN PRN PRN Reason: LINE FLUSH reviewed/updated patient's home and current medications Review of Systems - Review of Systems ROS unobtainable: due to mental status Exam - Constitutional Vital Signs: Temp Pulse Resp BP Pulse Ox 98.8 F 78 16 125/81 97 06/15/19 11:10 06/15/19 11:10 06/15/19 11:10 06/15/19 11:10 06/15/19 11:10 General appearance: no acute distress, other (chronically ill appearing, + dementia/confused) - EENT Eyes: PERRL ENT: other (+ NG tube) - Respiratory Respiratory effort: normal Respiratory: bilateral: CTA - Cardiovascular Rhythm: regular Heart Sounds: Present: S1 & S2 Extremities: No edema - Gastrointestinal General gastrointestinal: Present: soft, non-tender, non-distended - Neurologic Neurological: disoriented - Labs CBC & Chem 7: 06/10/19 04:03 06/11/19 04:02 Lab Results: Laboratory Results - last 24 hr 06/14/19 06/14/19 06/14/19 12:22 16:25 23:24 POC Glucose 144 H 126 H 149 H 06/15/19 06/15/19 05:19 11:27 POC Glucose 141 H 109 H Assessment and Plan 1. Oropharyngeal dysphagia 2. Advanced dementia -discussed PEG tube placement with pt's daughter Essence over the phone. explained purpose of peg tube and recommendations per speech therapy as pt is unable to consume po intake on her own. she was not ready to agree to procedure/feeding tube and wished for time to discuss with her siblings. will f/u regarding their wishes but will need to hold off on proceeding with peg tube placement at this time.
[2019-06-15] MEDS: ACETAMINOPHEN 325 MG TAB PO PRN (21:50)
[2019-06-15] MEDS: ONDANSETRON 4 MG/2 ML INJ IV PRN (21:51)
[2019-06-16 05:20] LABS: INR 0.96 (0.87-1.13)
[2019-06-16 05:21] LABS: Partial Thromboplastin Time 37.7 Sec. (24.2-36.6)
[2019-06-16] MEDS: ACETAMINOPHEN 325 MG TAB PO PRN (05:44)
[2019-06-16] MEDS: D5W/0.45% NACL 1,000 ML IV SCH ×2 (05:54→14:00)
[2019-06-16] MEDS: HEPARIN 5,000 UNIT/1 ML VIAL SUB-Q SCH ×2 (09:29→21:44)
[2019-06-16] MEDS: atenoloL 25 MG TAB PO SCH ×2 (09:30→21:44)
[2019-06-16] MEDS: QUEtiapine 100 MG TAB PO SCH ×2 (09:30→21:44)
[2019-06-16] MEDS: VALPROATE SODIUM 500 MG in SODIUM CHLORIDE 0.9% 100 ML IV SCH (09:30)
[2019-06-16] MEDS: amLODIPine 5 MG TAB PO SCH (09:30)
[2019-06-16] MEDS: CITALOPRAM 20 MG TAB PO SCH (09:30)
[2019-06-16] MEDS: PANTOPRAZOLE 40 MG TAB PO SCH (09:30)
--- NOTE | 2019-06-16 15:35 | Progress Note ---
Assessment and Plan Assessment and plan: --Metabolic encephalopathy Current Visit: Yes Status: Acute. Multifactorial , psych conditions , dementia , poor oral intake , possible UTI CT head no acute abnormalities noted, neurochecks, treat underlying cause, supportive care Psych evaluation --Failure to thrive in adult/poor oral intake IV fluids, nutrition supplements, Dobbhoff placement, tube feeding until she is awake and able to eat --Abnormal swallow eval/recommend PEG placement continue NG tube feeding, GI consult, for PEG placement N.p.o. from midnight --Possible urinary tract infection Current Visit: Yes Status: Acute Completed antibiotics, cultures negative to date -- Gastroesophageal reflux disease Current Visit: Yes Status: Acute PPI therapy, supportive care. --Vascular dementia with behavioral disturbance Current Visit: No Status: Chronic Ativan as needed, aspiration precaution, fall precautions, neuro check. PT OT --Abnormal TFTs Current Visit: Yes Status: Acute Abnormal thyroid function tests Normal TSH, very minimal elevation of T4 Will monitor and repeat the tests in a week -- DVT prophylaxis Current Visit: Yes Status: Acute SCD to bilateral lower extremities while in bed, prophylactic heparin -- Advance care planning/full CODE STATUS Current Visit: Yes Status: Acute Note; I discussed extensively with patient's daughter Anel Tellez at [phone] This morning discussed about speech and swallow recommendations of PEG placement Discussed briefly why the patient needs PEG, PEG procedure, She had numerous questions answered all of them, and patient wants to discuss more with the GI And then will make the decision. GI evaluation noted and appreciated, awaiting family's decision for PEG Plan of care discussed with the case management, and patient's nurse History Interval history: I have seen the patient and examined at the bedside this afternoon Patient's chart and medications reviewed Patient is noncommunicative, cachectic elderly and frail Receiving NG tube feedings, Speech and swallow recommend PEG Family still not decided Vital signs noted Hospitalist Physical - Constitutional Vitals: Temp Pulse Resp BP Pulse Ox 98.3 F 66 18 151/83 98 06/16/19 08:29 06/16/19 08:29 06/16/19 08:29 06/16/19 08:29 06/16/19 08:29 General appearance: Present: no acute distress, cachectic, disheveled, other (Closing eyes, opening on calling out her name) - EENT Eyes: Present: PERRL, EOM intact - Neck Neck: Present: supple, normal ROM - Respiratory Respiratory effort: normal Respiratory: bilateral: diminished, negative: rales, rhonchi, wheezing - Cardiovascular Rhythm: regular Heart Sounds: Present: S1 & S2 - Extremities Extremities: no ischemia, No edema - Abdominal General gastrointestinal: soft, non-tender, non-distended, normal bowel sounds - Integumentary Integumentary: Present: clear, warm - Psychiatric Psychiatric: other (Noncommunicative) - Neurologic Neurologic: other (Demented noncommunicative) Results - Labs CBC & Chem 7: 06/10/19 04:03 06/16/19 04:15 Labs: Laboratory Last Values WBC 7.2 K/mm3 (4.5-11.0) 06/10/19 04:03 RBC 3.49 M/mm3 (3.65-5.03) L 06/10/19 04:03 Hgb 10.9 gm/dl (10.1-14.3) 06/10/19 04:03 Hct 32.3 % (30.3-42.9) 06/10/19 04:03 MCV 93 fl (79-97) 06/10/19 04:03 MCH 31 pg (28-32) 06/10/19 04:03 MCHC 34 % (30-34) 06/10/19 04:03 RDW 14.1 % (13.2-15.2) 06/10/19 04:03 Plt Count 146 K/mm3 (140-440) 06/10/19 04:03 Lymph % (Auto) 22.0 % (13.4-35.0) 06/10/19 04:03 [place] % (Auto) 10.2 % (0.0-7.3) H 06/10/19 04:03 Eos % (Auto) 3.7 % (0.0-4.3) 06/10/19 04:03 Baso % (Auto) 0.6 % (0.0-1.8) 06/10/19 04:03 Lymph # 1.6 K/mm3 (1.2-5.4) 06/10/19 04:03 [place] # 0.7 K/mm3 (0.0-0.8) 06/10/19 04:03 Eos # 0.3 K/mm3 (0.0-0.4) 06/10/19 04:03 Baso # 0.0 K/mm3 (0.0-0.1) 06/10/19 04:03 Seg Neutrophils % 63.5 % (40.0-70.0) 06/10/19 04:03 Seg Neutrophils # 4.6 K/mm3 (1.8-7.7) 06/10/19 04:03 PT 12.9 Sec. (12.2-14.9) 06/16/19 04:15 INR 0.96 (0.87-1.13) 06/16/19 04:15 APTT 37.7 Sec. (24.2-36.6) H 06/16/19 04:15 Sodium 138 mmol/L (137-145) 06/11/19 04:02 Potassium 3.9 mmol/L (3.6-5.0) 06/16/19 04:15 Chloride 101.1 mmol/L (98-107) 06/11/19 04:02 Carbon Dioxide 27 mmol/L (22-30) 06/11/19 04:02 Anion Gap 13 mmol/L 06/11/19 04:02 BUN 36 mg/dL (7-17) H 06/11/19 04:02 Creatinine 0.7 mg/dL (0.7-1.2) 06/11/19 04:02 Estimated GFR > 60 ml/min 06/11/19 04:02 BUN/Creatinine Ratio 51 % 06/11/19 04:02 Glucose 106 mg/dL (65-100) H 06/11/19 04:02 POC Glucose 111 (70-105) H 06/16/19 13:19 Calcium 8.6 mg/dL (8.4-10.2) 06/11/19 04:02 Magnesium 1.80 mg/dL (1.7-2.3) 06/16/19 04:15 Total Bilirubin 0.70 mg/dL (0.1-1.2) 06/09/19 05:00 AST 30 units/L (5-40) 06/09/19 05:00 ALT 14 units/L (7-56) 06/09/19 05:00 Alkaline Phosphatase 77 units/L (35-129) 06/09/19 05:00 Total Protein 6.9 g/dL (6.3-8.2) 06/09/19 05:00 Albumin 3.7 g/dL (3.9-5) L 06/09/19 05:00 Albumin/Globulin Ratio 1.2 % 06/09/19 05:00 TSH 3.110 mlU/mL (0.270-4.200) 06/08/19 20:05 Free T4 1.67 ng/dL (0.76-1.46) H 06/08/19 20:05 Polanco/IV: Voiding Method External Female Catheter IV Catheter Type [Right Peripheral IV Forearm] IV Catheter Type [Left Hand] INT / Saline Lock IV Catheter Type [Left Forearm INT / Saline Lock ] Active Medications - Current Medications Current Medications: Generic Name Dose Route Start Last Admin Trade Name Freq PRN Reason Stop Dose Admin Acetaminophen 650 mg 06/08/19 17:46 06/16/19 05:44 Tylenol PO 650 mg Q4H PRN Administration Pain MILD(1-3)/Fever >100.5/RUDD Amlodipine Besylate 5 mg 06/09/19 10:00 06/16/19 09:30 Amlodipine PO 5 mg DAILY PADMINI Administration Lipase/Protease/Amylase 1 each 06/09/19 08:[address] 10,500 Unit FEEDTUBE PRN PRN For Clogged Feeding Tube Atenolol 25 mg 06/08/19 22:00 06/16/19 09:30 Tenormin PO 25 mg BID PADMINI Administration Citalopram Hydrobromide 20 mg 06/09/19 10:00 06/16/19 09:30 Celexa PO 20 mg QDAY PADMINI Administration Heparin Sodium (Porcine) 5,000 unit 06/08/19 22:00 06/16/19 09:29 Heparin SUB-Q 5,000 unit Q12HR PADMINI Administration Dextrose/Sodium Chloride 1,000 mls @ 125 mls/hr 06/09/19 09:00 06/16/19 14:00 D5/0.45ns IV 125 mls/hr DIRECT PADMINI Administration Valproate Sodium 500 mg/ 105 mls @ 100 mls/hr 06/10/19 10:00 06/16/19 09:30 Sodium Chloride IV 100 mls/hr DAILY PADMINI Administration Ondansetron HCl 4 mg 06/08/19 17:46 06/15/19 21:51 Zofran IV 4 mg Q8H PRN Administration Nausea And Vomiting Pantoprazole Sodium 40 mg 06/09/19 10:00 06/16/19 09:30 Protonix PO 40 mg QDAY PADMINI Administration Quetiapine Fumarate 100 mg 06/09/19 16:00 06/16/19 09:30 Seroquel PO 100 mg BID PADMINI Administration Simple Syrup 15 ml 06/09/19 08:44 Simple Syrup FEEDTUBE PRN PRN Hypoglycemia Simple Syrup 30 ml 06/09/19 08:44 Simple Syrup FEEDTUBE PRN PRN Hypoglycemia Sodium Bicarbonate 325 mg 06/09/19 08:44 Sodium Bicarbonate FEEDTUBE PRN PRN For Clogged Feeding Tube Sodium Chloride 10 ml 06/08/19 22:00 06/16/19 09:39 Sodium Chloride Flush Syringe 10 Ml IV 10 ml BID PADMINI Administration Sodium Chloride 10 ml 06/08/19 17:46 Sodium Chloride Flush Syringe 10 Ml IV PRN PRN LINE FLUSH Nutrition/Malnutrition Assess - Dietary Evaluation Nutrition/Malnutrition Findings: Nutrition Notes Start: 06/09/19 09:01 Freq: Status: Active Protocol: Document 06/16/19 12:41 LM (Rec: 06/16/19 12:44 LM [id number]) Nutrition Notes Initial or Follow up Reassessment Current Diagnosis Hypertension Other Pertinent Diagnosis Dementia w/ behavioral disturbances, metabolic encephalopathy Current Diet Tube Feedings. Labs/Tests Reviewed Pertinent Medications D5 at 125ml/hr Height 5 ft 1 in Weight 56.9 kg [place] Body Weight (kg) 47.72 BMI 23.7 Weight Status Appropriate Subjective/Other Information Per RN notes, pt is tolerating TF at goal. Percent of energy/protein needs met: 100%/100% Burn Absent Trauma Absent GI Symptoms None Current % PO Negligible Minimum of two criteria Yes Energy Intake (non-severe) <75% Estimated Energy Requirement >7 days Reduced Grey Tender Strength Measurably Reduced (severe) #1 Nutrition Diagnosis Malnutrition Diagnosis Progress(for reassessment Continues documentation) Is patient on ventilator? No Is Patient Ambulatory and/or Out of Bed No REE-([facility]-confined to bed) 1190.460 Calculation [facility] Additional Notes Protein: 68-85g (1.2-1.5g/kg) Fluid: 1 ml/kg Nutrition Intervention Change Diet Order: TF Nutrition Support: Promote 1.0 at 50ml/hr Flush 50ml q4h Kcal 1,200 Protein (gm) 75 Fluid (mL) 1,007 Goal #1 Meet at least 80% of kcal and protein needs via TF Anticipated Discharge Needs: unable to determine at this time Follow-Up By: 07/13/19 Additional Comments F/U for TF tolerance
[2019-06-17] MEDS ORDERED: hydrALAZINE 20 MG/1 ML INJ IV PRN (00:51)
[2019-06-17] MEDS: D5W/0.45% NACL 1,000 ML IV SCH ×2 (04:48→22:05)
--- NOTE | 2019-06-17 09:07 | XRay Report ---
ABDOMEN 1 VIEW(S) INDICATION / CLINICAL INFORMATION: verify tube placement. COMPARISON: 06/11/2019 FINDINGS: TUBES / LINES: The distal tip of the feeding tube terminates in the cardia of the stomach beneath the left hemidiaphragm. BOWEL GAS PATTERN: No significant abnormality. FREE AIR / EXTRALUMINAL GAS: None seen. ADDITIONAL FINDINGS: Moderately distended bladder is suspected. IMPRESSION: The feeding tube terminates in the cardia of the stomach. Distended bladder is suspected. Signer Name: Miguelito Melgoza Jr, MD Signed: 06/17/2019 9:03 AM Workstation Name: [id number]
[2019-06-17] MEDS: QUEtiapine 100 MG TAB PO SCH ×2 (09:55→22:06)
[2019-06-17] MEDS: CITALOPRAM 20 MG TAB PO SCH (09:55)
[2019-06-17] MEDS: atenoloL 25 MG TAB PO SCH ×2 (09:56→22:07)
[2019-06-17] MEDS: amLODIPine 5 MG TAB PO SCH (09:57)
[2019-06-17] MEDS: HEPARIN 5,000 UNIT/1 ML VIAL SUB-Q SCH ×2 (09:57→22:05)
[2019-06-17] MEDS: PANTOPRAZOLE 40 MG TAB PO SCH (09:57)
[2019-06-17] MEDS: VALPROATE SODIUM 500 MG in SODIUM CHLORIDE 0.9% 100 ML IV SCH (10:09)
--- NOTE | 2019-06-17 13:33 | Progress Note ---
Assessment and Plan Assessment and plan: --Metabolic encephalopathy Current Visit: Yes Status: Acute. Multifactorial , psych conditions , dementia , poor oral intake , possible UTI CT head no acute abnormalities noted, neurochecks, treat underlying cause, supportive care Psych evaluation --Failure to thrive in adult/poor oral intake IV fluids, nutrition supplements, Dobbhoff placement, tube feeding until she is awake and able to eat --Abnormal swallow eval/recommend PEG placement continue NG tube feeding, GI consulted, for PEG placement GI evaluated recommend PEG, however family was not ready And refused PEG procedure --Possible urinary tract infection Current Visit: Yes Status: Acute Completed antibiotics, cultures negative to date -- Gastroesophageal reflux disease Current Visit: Yes Status: Acute PPI therapy, supportive care. --Vascular dementia with behavioral disturbance Current Visit: No Status: Chronic Ativan as needed, aspiration precaution, fall precautions, neuro check. PT OT --Abnormal TFTs Current Visit: Yes Status: Acute Abnormal thyroid function tests Normal TSH, very minimal elevation of T4 Will monitor and repeat the tests in a week -- DVT prophylaxis Current Visit: Yes Status: Acute SCD to bilateral lower extremities while in bed, prophylactic heparin -- Advance care planning/full CODE STATUS Current Visit: Yes Status: Acute Recommend hospice, at home versus inpatient DC planning per case management and family Note; on 06/15/2019 I discussed extensively with patient's daughter Anel Tellez at [phone] This morning discussed about speech and swallow recommendations of PEG placement Discussed briefly why the patient needs PEG, PEG procedure, She had numerous questions answered all of them, and patient wants to discuss more with the GI,And then will make the decision. GI evaluation noted and appreciated, GI discussed with daughter Anel awaiting family's decision for PEG Plan of care discussed with the case management, and patient's nurse History Interval history: Patient seen and examined at the bedside this morning Patient is more alert and awake, confused in mild distress Receiving NG tube feeding, restraint for safety because of agitation Vital signs noted Hospitalist Physical - Constitutional Vitals: Temp Pulse Resp BP Pulse Ox 97.8 F 80 16 145/90 93 06/17/19 11:34 06/17/19 11:34 06/17/19 11:34 06/17/19 11:34 06/17/19 11:34 General appearance: Present: no acute distress, cachectic, disheveled, other (More alert and awake) - EENT Eyes: Present: PERRL, EOM intact - Neck Neck: Present: supple, normal ROM - Respiratory Respiratory effort: normal Respiratory: bilateral: diminished, negative: rales, rhonchi, wheezing - Cardiovascular Rhythm: regular Heart Sounds: Present: S1 & S2 - Extremities Extremities: no ischemia, No edema - Abdominal General gastrointestinal: soft, non-tender, non-distended, normal bowel sounds - Integumentary Integumentary: Present: clear, warm - Psychiatric Psychiatric: other (Confused minimally communicative) - Neurologic Neurologic: moves all extremities, other (Confused) Results - Labs CBC & Chem 7: 06/10/19 04:03 06/16/19 04:15 Labs: Laboratory Last Values WBC 7.2 K/mm3 (4.5-11.0) 06/10/19 04:03 RBC 3.49 M/mm3 (3.65-5.03) L 06/10/19 04:03 Hgb 10.9 gm/dl (10.1-14.3) 06/10/19 04:03 Hct 32.3 % (30.3-42.9) 06/10/19 04:03 MCV 93 fl (79-97) 06/10/19 04:03 MCH 31 pg (28-32) 06/10/19 04:03 MCHC 34 % (30-34) 06/10/19 04:03 RDW 14.1 % (13.2-15.2) 06/10/19 04:03 Plt Count 146 K/mm3 (140-440) 06/10/19 04:03 Lymph % (Auto) 22.0 % (13.4-35.0) 06/10/19 04:03 [place] % (Auto) 10.2 % (0.0-7.3) H 06/10/19 04:03 Eos % (Auto) 3.7 % (0.0-4.3) 06/10/19 04:03 Baso % (Auto) 0.6 % (0.0-1.8) 06/10/19 04:03 Lymph # 1.6 K/mm3 (1.2-5.4) 06/10/19 04:03 [place] # 0.7 K/mm3 (0.0-0.8) 06/10/19 04:03 Eos # 0.3 K/mm3 (0.0-0.4) 06/10/19 04:03 Baso # 0.0 K/mm3 (0.0-0.1) 06/10/19 04:03 Seg Neutrophils % 63.5 % (40.0-70.0) 06/10/19 04:03 Seg Neutrophils # 4.6 K/mm3 (1.8-7.7) 06/10/19 04:03 PT 12.9 Sec. (12.2-14.9) 06/16/19 04:15 INR 0.96 (0.87-1.13) 06/16/19 04:15 APTT 37.7 Sec. (24.2-36.6) H 06/16/19 04:15 Sodium 138 mmol/L (137-145) 06/11/19 04:02 Potassium 3.9 mmol/L (3.6-5.0) 06/16/19 04:15 Chloride 101.1 mmol/L (98-107) 06/11/19 04:02 Carbon Dioxide 27 mmol/L (22-30) 06/11/19 04:02 Anion Gap 13 mmol/L 06/11/19 04:02 BUN 36 mg/dL (7-17) H 06/11/19 04:02 Creatinine 0.7 mg/dL (0.7-1.2) 06/11/19 04:02 Estimated GFR > 60 ml/min 06/11/19 04:02 BUN/Creatinine Ratio 51 % 06/11/19 04:02 Glucose 106 mg/dL (65-100) H 06/11/19 04:02 POC Glucose 116 (70-105) H 06/17/19 11:35 Calcium 8.6 mg/dL (8.4-10.2) 06/11/19 04:02 Magnesium 1.80 mg/dL (1.7-2.3) 06/16/19 04:15 Total Bilirubin 0.70 mg/dL (0.1-1.2) 06/09/19 05:00 AST 30 units/L (5-40) 06/09/19 05:00 ALT 14 units/L (7-56) 06/09/19 05:00 Alkaline Phosphatase 77 units/L (35-129) 06/09/19 05:00 Total Protein 6.9 g/dL (6.3-8.2) 06/09/19 05:00 Albumin 3.7 g/dL (3.9-5) L 06/09/19 05:00 Albumin/Globulin Ratio 1.2 % 06/09/19 05:00 TSH 3.110 mlU/mL (0.270-4.200) 06/08/19 20:05 Free T4 1.67 ng/dL (0.76-1.46) H 06/08/19 20:05 Polanco/IV: Voiding Method External Female Catheter IV Catheter Type [Right Peripheral IV Forearm] IV Catheter Type [Left Hand] INT / Saline Lock IV Catheter Type [Left Forearm INT / Saline Lock ] Active Medications - Current Medications Current Medications: Generic Name Dose Route Start Last Admin Trade Name Freq PRN Reason Stop Dose Admin Acetaminophen 650 mg 06/08/19 17:46 06/16/19 05:44 Tylenol PO 650 mg Q4H PRN Administration Pain MILD(1-3)/Fever >100.5/RUDD Amlodipine Besylate 5 mg 06/09/19 10:00 06/17/19 09:57 Amlodipine PO 5 mg DAILY PADMINI Administration Lipase/Protease/Amylase 1 each 06/09/19 08:[address] 10,500 Unit FEEDTUBE PRN PRN For Clogged Feeding Tube Atenolol 25 mg 06/08/19 22:00 06/17/19 09:56 Tenormin PO 25 mg BID PADMINI Administration Citalopram Hydrobromide 20 mg 06/09/19 10:00 06/17/19 09:55 Celexa PO 20 mg QDAY PADMINI Administration Heparin Sodium (Porcine) 5,000 unit 06/08/19 22:00 06/17/19 09:57 Heparin SUB-Q 5,000 unit Q12HR PADMINI Administration Hydralazine HCl 5 mg 06/17/19 00:51 06/17/19 01:18 Apresoline IV 5 mg Q6H PRN Administration Hypertension Dextrose/Sodium Chloride 1,000 mls @ 125 mls/hr 06/09/19 09:00 06/17/19 04:48 D5/0.45ns IV 125 mls/hr DIRECT PADMINI Administration Valproate Sodium 500 mg/ 105 mls @ 100 mls/hr 06/10/19 10:00 06/17/19 10:09 Sodium Chloride IV 06/17/19 23:59 100 mls/hr DAILY PADMINI Administration Ondansetron HCl 4 mg 06/08/19 17:46 06/15/19 21:51 Zofran IV 4 mg Q8H PRN Administration Nausea And Vomiting Pantoprazole Sodium 40 mg 06/09/19 10:00 06/17/19 09:57 Protonix PO 40 mg QDAY PADMINI Administration Quetiapine Fumarate 100 mg 06/09/19 16:00 06/17/19 09:55 Seroquel PO 100 mg BID PADMINI Administration Simple Syrup 15 ml 06/09/19 08:44 Simple Syrup FEEDTUBE PRN PRN Hypoglycemia Simple Syrup 30 ml 06/09/19 08:44 Simple Syrup FEEDTUBE PRN PRN Hypoglycemia Sodium Bicarbonate 325 mg 06/09/19 08:44 Sodium Bicarbonate FEEDTUBE PRN PRN For Clogged Feeding Tube Sodium Chloride 10 ml 06/08/19 22:00 06/17/19 10:07 Sodium Chloride Flush Syringe 10 Ml IV 10 ml BID PADMINI Administration Sodium Chloride 10 ml 06/08/19 17:46 Sodium Chloride Flush Syringe 10 Ml IV PRN PRN LINE FLUSH Valproic Acid 250 mg 06/18/19 10:00 Depakene Liq FEEDTUBE BID PADMINI Nutrition/Malnutrition Assess - Dietary Evaluation Nutrition/Malnutrition Findings: Nutrition Notes Start: 06/09/19 09:01 Freq: Status: Active Protocol: Document 06/16/19 12:41 LM (Rec: 06/16/19 12:44 LM [email or web address]) Nutrition Notes Initial or Follow up Reassessment Current Diagnosis Hypertension Other Pertinent Diagnosis Dementia w/ behavioral disturbances, metabolic encephalopathy Current Diet Tube Feedings. Labs/Tests Reviewed Pertinent Medications D5 at 125ml/hr Height 5 ft 1 in Weight 56.9 kg [place] Body Weight (kg) 47.72 BMI 23.7 Weight Status Appropriate Subjective/Other Information Per RN notes, pt is tolerating TF at goal. Percent of energy/protein needs met: 100%/100% Burn Absent Trauma Absent GI Symptoms None Current % PO Negligible Minimum of two criteria Yes Energy Intake (non-severe) <75% Estimated Energy Requirement >7 days Reduced American Sign Language Interpreter Strength Measurably Reduced (severe) #1 Nutrition Diagnosis Malnutrition Diagnosis Progress(for reassessment Continues documentation) Is patient on ventilator? No Is Patient Ambulatory and/or Out of Bed No REE-([facility]-confined to bed) [phone] Calculation Used for Recommendations [facility] Additional Notes Protein: 68-85g (1.2-1.5g/kg) Fluid: 1 ml/kg Nutrition Intervention Change Diet Order: TF Nutrition Support: Promote 1.0 at 50ml/hr Flush 50ml q4h Kcal 1,200 Protein (gm) 75 Fluid (mL) 1,007 Goal #1 Meet at least 80% of kcal and protein needs via TF Anticipated Discharge Needs: unable to determine at this time Follow-Up By: 07/13/19 Additional Comments F/U for TF tolerance
--- NOTE | 2019-06-17 15:05 | Event Note ---
Date: 06/17/19 Attempted to call patient's daughter, but unable to reach by phone. will defer peg tube placement as consent has not been obtained.
[2019-06-18] MEDS: atenoloL 25 MG TAB PO SCH ×2 (09:28→22:34)
[2019-06-18] MEDS: amLODIPine 5 MG TAB PO SCH (09:29)
[2019-06-18] MEDS: QUEtiapine 100 MG TAB PO SCH ×2 (09:29→22:24)
[2019-06-18] MEDS: CITALOPRAM 20 MG TAB PO SCH (09:29)
[2019-06-18] MEDS: HEPARIN 5,000 UNIT/1 ML VIAL SUB-Q SCH ×2 (09:30→22:24)
[2019-06-18] MEDS: PANTOPRAZOLE 40 MG TAB PO SCH (09:30)
[2019-06-18] MEDS: VALPROIC ACID 250 MG/5 ML ORAL LIQD FEEDTUBE SCH ×2 (09:34→22:24)
[2019-06-18] MEDS: D5W/0.45% NACL 1,000 ML IV SCH (09:36)
--- NOTE | 2019-06-18 10:15 | Progress Note ---
Assessment and Plan Assessment and plan: --Metabolic encephalopathy Current Visit: Yes Status: Acute. Multifactorial , psych conditions , dementia , poor oral intake , possible UTI CT head no acute abnormalities noted, neurochecks, supportive care --Failure to thrive in adult/poor oral intake IV fluids, nutrition supplements, Dobbhoff placement, tube feeding until she is awake and able to eat --Abnormal swallow eval/recommend PEG placement continue NG tube feeding, GI consulted, for PEG placement GI evaluated recommend PEG, however family was not ready And refused PEG procedure --Possible urinary tract infection Current Visit: Yes Status: Acute Completed antibiotics, cultures negative to date -- Gastroesophageal reflux disease Current Visit: Yes Status: Acute PPI therapy, supportive care. --Vascular dementia with behavioral disturbance Current Visit: No Status: Chronic Ativan as needed, aspiration precaution, fall precautions, neuro check. PT OT --Hypokalemia; resolved --Abnormal TFTs Current Visit: Yes Status: Acute Abnormal thyroid function tests Normal TSH, very minimal elevation of T4 Will monitor and repeat the tests in a week -- DVT prophylaxis Current Visit: Yes Status: Acute SCD to bilateral lower extremities while in bed, prophylactic heparin -- Advance care planning/full CODE STATUS Current Visit: Yes Status: Acute Recommend hospice, at home versus inpatient DC planning per case management and family Hospice evaluating the patient, possible discharge to home with hospice versus inpatient hospice History Interval history: Patient seen and examined Patient's chart and medications reviewed Family considering hospice at home versus inpatient No new overnight events reported by the nursing Vital signs stable Hospitalist Physical - Constitutional Vitals: Temp Pulse Resp BP Pulse Ox 97.9 F 91 H 18 152/92 96 06/18/19 09:26 06/18/19 09:29 06/18/19 09:26 06/18/19 09:29 06/18/19 09:26 General appearance: Present: no acute distress, cachectic, disheveled, other (More alert and awake) - EENT Eyes: Present: PERRL, EOM intact - Neck Neck: Present: supple, normal ROM - Respiratory Respiratory effort: normal Respiratory: bilateral: diminished, negative: rales, rhonchi, wheezing - Cardiovascular Rhythm: regular Heart Sounds: Present: S1 & S2 - Extremities Extremities: no ischemia, No edema - Abdominal General gastrointestinal: soft, non-tender, non-distended, normal bowel sounds - Integumentary Integumentary: Present: clear, warm - Psychiatric Psychiatric: other (Dementia confused) - Neurologic Neurologic: moves all extremities Results - Labs CBC & Chem 7: 06/10/19 04:03 06/16/19 04:15 Labs: Laboratory Last Values WBC 7.2 K/mm3 (4.5-11.0) 06/10/19 04:03 RBC 3.49 M/mm3 (3.65-5.03) L 06/10/19 04:03 Hgb 10.9 gm/dl (10.1-14.3) 06/10/19 04:03 Hct 32.3 % (30.3-42.9) 06/10/19 04:03 MCV 93 fl (79-97) 06/10/19 04:03 MCH 31 pg (28-32) 06/10/19 04:03 MCHC 34 % (30-34) 06/10/19 04:03 RDW 14.1 % (13.2-15.2) 06/10/19 04:03 Plt Count 146 K/mm3 (140-440) 06/10/19 04:03 Lymph % (Auto) 22.0 % (13.4-35.0) 06/10/19 04:03 [place] % (Auto) 10.2 % (0.0-7.3) H 06/10/19 04:03 Eos % (Auto) 3.7 % (0.0-4.3) 06/10/19 04:03 Baso % (Auto) 0.6 % (0.0-1.8) 06/10/19 04:03 Lymph # 1.6 K/mm3 (1.2-5.4) 06/10/19 04:03 [place] # 0.7 K/mm3 (0.0-0.8) 06/10/19 04:03 Eos # 0.3 K/mm3 (0.0-0.4) 06/10/19 04:03 Baso # 0.0 K/mm3 (0.0-0.1) 06/10/19 04:03 Seg Neutrophils % 63.5 % (40.0-70.0) 06/10/19 04:03 Seg Neutrophils # 4.6 K/mm3 (1.8-7.7) 06/10/19 04:03 PT 12.9 Sec. (12.2-14.9) 06/16/19 04:15 INR 0.96 (0.87-1.13) 06/16/19 04:15 APTT 37.7 Sec. (24.2-36.6) H 06/16/19 04:15 Sodium 138 mmol/L (137-145) 06/11/19 04:02 Potassium 3.9 mmol/L (3.6-5.0) 06/16/19 04:15 Chloride 101.1 mmol/L (98-107) 06/11/19 04:02 Carbon Dioxide 27 mmol/L (22-30) 06/11/19 04:02 Anion Gap 13 mmol/L 06/11/19 04:02 BUN 36 mg/dL (7-17) H 06/11/19 04:02 Creatinine 0.7 mg/dL (0.7-1.2) 06/11/19 04:02 Estimated GFR > 60 ml/min 06/11/19 04:02 BUN/Creatinine Ratio 51 % 06/11/19 04:02 Glucose 106 mg/dL (65-100) H 06/11/19 04:02 POC Glucose 198 (70-105) H 06/18/19 00:14 Calcium 8.6 mg/dL (8.4-10.2) 06/11/19 04:02 Magnesium 1.80 mg/dL (1.7-2.3) 06/16/19 04:15 Total Bilirubin 0.70 mg/dL (0.1-1.2) 06/09/19 05:00 AST 30 units/L (5-40) 06/09/19 05:00 ALT 14 units/L (7-56) 06/09/19 05:00 Alkaline Phosphatase 77 units/L (35-129) 06/09/19 05:00 Total Protein 6.9 g/dL (6.3-8.2) 06/09/19 05:00 Albumin 3.7 g/dL (3.9-5) L 06/09/19 05:00 Albumin/Globulin Ratio 1.2 % 06/09/19 05:00 TSH 3.110 mlU/mL (0.270-4.200) 06/08/19 20:05 Free T4 1.67 ng/dL (0.76-1.46) H 06/08/19 20:05 Polanco/IV: Voiding Method External Female Catheter IV Catheter Type [Right Peripheral IV Forearm] IV Catheter Type [Left Hand] INT / Saline Lock IV Catheter Type [Left Forearm INT / Saline Lock ] Active Medications - Current Medications Current Medications: Generic Name Dose Route Start Last Admin Trade Name Freq PRN Reason Stop Dose Admin Acetaminophen 650 mg 06/08/19 17:46 06/16/19 05:44 Tylenol PO 650 mg Q4H PRN Administration Pain MILD(1-3)/Fever >100.5/RUDD Amlodipine Besylate 5 mg 06/09/19 10:00 06/18/19 09:29 Amlodipine PO 5 mg DAILY PADMINI Administration Lipase/Protease/Amylase 1 each 06/09/19 08:[address] 10,500 Unit FEEDTUBE PRN PRN For Clogged Feeding Tube Atenolol 25 mg 06/08/19 22:00 06/18/19 09:28 Tenormin PO 25 mg BID PADMINI Administration Citalopram Hydrobromide 20 mg 06/09/19 10:00 06/18/19 09:29 Celexa PO 20 mg QDAY PADMINI Administration Heparin Sodium (Porcine) 5,000 unit 06/08/19 22:00 06/18/19 09:30 Heparin SUB-Q 5,000 unit Q12HR PADMINI Administration Hydralazine HCl 5 mg 06/17/19 00:51 06/17/19 01:18 Apresoline IV 5 mg Q6H PRN Administration Hypertension Dextrose/Sodium Chloride 1,000 mls @ 125 mls/hr 06/09/19 09:00 06/18/19 09:36 D5/0.45ns IV 125 mls/hr DIRECT PADMINI Administration Ondansetron HCl 4 mg 06/08/19 17:46 06/15/19 21:51 Zofran IV 4 mg Q8H PRN Administration Nausea And Vomiting Pantoprazole Sodium 40 mg 06/09/19 10:00 06/18/19 09:30 Protonix PO 40 mg QDAY PADMINI Administration Quetiapine Fumarate 100 mg 06/09/19 16:00 06/18/19 09:29 Seroquel PO 100 mg BID PADMINI Administration Simple Syrup 15 ml 06/09/19 08:44 Simple Syrup FEEDTUBE PRN PRN Hypoglycemia Simple Syrup 30 ml 06/09/19 08:44 Simple Syrup FEEDTUBE PRN PRN Hypoglycemia Sodium Bicarbonate 325 mg 06/09/19 08:44 Sodium Bicarbonate FEEDTUBE PRN PRN For Clogged Feeding Tube Sodium Chloride 10 ml 06/08/19 22:00 06/18/19 09:30 Sodium Chloride Flush Syringe 10 Ml IV 10 ml BID PADMINI Administration Sodium Chloride 10 ml 06/08/19 17:46 Sodium Chloride Flush Syringe 10 Ml IV PRN PRN LINE FLUSH Valproic Acid 250 mg 06/18/19 10:00 06/18/19 09:34 Depakene Liq FEEDTUBE 250 mg BID PADMINI Administration Nutrition/Malnutrition Assess - Dietary Evaluation Nutrition/Malnutrition Findings: Nutrition Notes Start: 06/09/19 09:01 Freq: Status: Active Protocol: Document 06/16/19 12:41 LM (Rec: 06/16/19 12:44 LM [email or web address]) Nutrition Notes Initial or Follow up Reassessment Current Diagnosis Hypertension Other Pertinent Diagnosis Dementia w/ behavioral disturbances, metabolic encephalopathy Current Diet Tube Feedings. Labs/Tests Reviewed Pertinent Medications D5 at 125ml/hr Height 5 ft 1 in Weight 56.9 kg [place] Body Weight (kg) 47.72 BMI 23.7 Weight Status Appropriate Subjective/Other Information Per RN notes, pt is tolerating TF at goal. Percent of energy/protein needs met: 100%/100% Burn Absent Trauma Absent GI Symptoms None Current % PO Negligible Minimum of two criteria Yes Energy Intake (non-severe) <75% Estimated Energy Requirement >7 days Reduced Operations Manager Strength Measurably Reduced (severe) #1 Nutrition Diagnosis Malnutrition Diagnosis Progress(for reassessment Continues documentation) Is patient on ventilator? No Is Patient Ambulatory and/or Out of Bed No REE-([place]-confined to bed) 1190.460 Calculation Used for Recommendations [place] Additional Notes Protein: 68-85g (1.2-1.5g/kg) Fluid: 1 ml/kg Nutrition Intervention Change Diet Order: TF Nutrition Support: Promote 1.0 at 50ml/hr Flush 50ml q4h Kcal 1,200 Protein (gm) 75 Fluid (mL) 1,007 Goal #1 Meet at least 80% of kcal and protein needs via TF Anticipated Discharge Needs: unable to determine at this time Follow-Up By: 07/13/19 Additional Comments F/U for TF tolerance
--- NOTE | 2019-06-18 17:51 | Event Note ---
Date: 06/18/19 I discussed patient's condition, treatment and discharge plan, with patient's daughter Ms. Singleton. Answered all her questions. Also discussed about hospice and discharge planning I informed Ms. David Singleton that Ms. Tellez is receiving tube feeding as well as IV fluids for her nutrition Answered all her questions
[2019-06-18] MEDS: ACETAMINOPHEN 325 MG TAB PO PRN (22:23)
[2019-06-19] MEDS: D5W/0.45% NACL 1,000 ML IV SCH ×2 (00:04→23:34)
[2019-06-19] MEDS: atenoloL 25 MG TAB PO SCH ×2 (10:14→22:52)
[2019-06-19] MEDS: QUEtiapine 100 MG TAB PO SCH ×2 (10:14→22:53)
[2019-06-19] MEDS: CITALOPRAM 20 MG TAB PO SCH (10:14)
[2019-06-19] MEDS: VALPROIC ACID 250 MG/5 ML ORAL LIQD FEEDTUBE SCH ×2 (10:14→22:53)
[2019-06-19] MEDS: PANTOPRAZOLE 40 MG TAB PO SCH (10:14)
[2019-06-19] MEDS: amLODIPine 5 MG TAB PO SCH (10:15)
[2019-06-19] MEDS: HEPARIN 5,000 UNIT/1 ML VIAL SUB-Q SCH ×2 (10:15→22:53)
--- NOTE | 2019-06-19 13:56 | Progress Note ---
Assessment and Plan Assessment and plan: --Failure to thrive in adult/poor oral intake IV fluids, nutrition supplements, Dobbhoff placement, tube feeding until she is awake and able to eat --Abnormal swallow eval/recommend PEG placement continue NG tube feeding, GI consulted, for PEG placement GI evaluated recommend PEG, however the daughter, refused PEG procedure --Metabolic encephalopathy Current Visit: Yes Status: Acute. Multifactorial , psych conditions , dementia , poor oral intake , possible UTI CT head no acute abnormalities noted, neurochecks, supportive care --Possible urinary tract infection Current Visit: Yes Status: Acute Completed antibiotics, cultures negative to date -- Gastroesophageal reflux disease Current Visit: Yes Status: Acute PPI therapy, supportive care. --Vascular dementia with behavioral disturbance Current Visit: No Status: Chronic Ativan as needed, aspiration precaution, fall precautions, neuro check. PT OT --Hypokalemia; resolved --Abnormal TFTs Current Visit: Yes Status: Acute Abnormal thyroid function tests Normal TSH, very minimal elevation of T4 Will monitor and repeat the tests in a week -- DVT prophylaxis Current Visit: Yes Status: Acute SCD to bilateral lower extremities while in bed, prophylactic heparin -- Advance care planning/full CODE STATUS Current Visit: Yes Status: Acute Hospice has evaluated the patient, home with hospice Patient is medically stable for discharge Today 06/19/2019 I discussed in detail with patient's daughter Ms. Tam [phone] Patient's condition treatment and discharge plans, answered all her questions/ History Interval history: Patient seen and examined at the bedside Patient's chart and medications reviewed Patient is more alert and awake today Confused, restraint for safety Receiving NG tube feeding Vital signs noted Hospitalist Physical - Constitutional Vitals: Temp Pulse Resp BP Pulse Ox 97.6 F 79 20 138/85 97 06/19/19 11:30 06/19/19 11:30 06/19/19 11:30 06/19/19 11:30 06/19/19 12:00 General appearance: Present: no acute distress, cachectic, disheveled, other (More alert and awake) - EENT Eyes: Present: PERRL, EOM intact - Neck Neck: Present: supple, normal ROM - Respiratory Respiratory effort: normal Respiratory: bilateral: diminished, negative: rales, rhonchi, wheezing - Cardiovascular Rhythm: regular Heart Sounds: Present: S1 & S2 - Extremities Extremities: no ischemia, No edema - Abdominal General gastrointestinal: soft, non-tender, non-distended, normal bowel sounds - Integumentary Integumentary: Present: clear, warm - Psychiatric Psychiatric: cooperative, other (Confused) - Neurologic Neurologic: moves all extremities Results - Labs CBC & Chem 7: 06/10/19 04:03 06/16/19 04:15 Labs: Laboratory Last Values WBC 7.2 K/mm3 (4.5-11.0) 06/10/19 04:03 RBC 3.49 M/mm3 (3.65-5.03) L 06/10/19 04:03 Hgb 10.9 gm/dl (10.1-14.3) 06/10/19 04:03 Hct 32.3 % (30.3-42.9) 06/10/19 04:03 MCV 93 fl (79-97) 06/10/19 04:03 MCH 31 pg (28-32) 06/10/19 04:03 MCHC 34 % (30-34) 06/10/19 04:03 RDW 14.1 % (13.2-15.2) 06/10/19 04:03 Plt Count 146 K/mm3 (140-440) 06/10/19 04:03 Lymph % (Auto) 22.0 % (13.4-35.0) 06/10/19 04:03 [place] % (Auto) 10.2 % (0.0-7.3) H 06/10/19 04:03 Eos % (Auto) 3.7 % (0.0-4.3) 06/10/19 04:03 Baso % (Auto) 0.6 % (0.0-1.8) 06/10/19 04:03 Lymph # 1.6 K/mm3 (1.2-5.4) 06/10/19 04:03 [place] # 0.7 K/mm3 (0.0-0.8) 06/10/19 04:03 Eos # 0.3 K/mm3 (0.0-0.4) 06/10/19 04:03 Baso # 0.0 K/mm3 (0.0-0.1) 06/10/19 04:03 Seg Neutrophils % 63.5 % (40.0-70.0) 06/10/19 04:03 Seg Neutrophils # 4.6 K/mm3 (1.8-7.7) 06/10/19 04:03 PT 12.9 Sec. (12.2-14.9) 06/16/19 04:15 INR 0.96 (0.87-1.13) 06/16/19 04:15 APTT 37.7 Sec. (24.2-36.6) H 06/16/19 04:15 Sodium 138 mmol/L (137-145) 06/11/19 04:02 Potassium 3.9 mmol/L (3.6-5.0) 06/16/19 04:15 Chloride 101.1 mmol/L (98-107) 06/11/19 04:02 Carbon Dioxide 27 mmol/L (22-30) 06/11/19 04:02 Anion Gap 13 mmol/L 06/11/19 04:02 BUN 36 mg/dL (7-17) H 06/11/19 04:02 Creatinine 0.7 mg/dL (0.7-1.2) 06/11/19 04:02 Estimated GFR > 60 ml/min 06/11/19 04:02 BUN/Creatinine Ratio 51 % 06/11/19 04:02 Glucose 106 mg/dL (65-100) H 06/11/19 04:02 POC Glucose 136 (70-105) H 06/19/19 11:53 Calcium 8.6 mg/dL (8.4-10.2) 06/11/19 04:02 Magnesium 1.80 mg/dL (1.7-2.3) 06/16/19 04:15 Total Bilirubin 0.70 mg/dL (0.1-1.2) 06/09/19 05:00 AST 30 units/L (5-40) 06/09/19 05:00 ALT 14 units/L (7-56) 06/09/19 05:00 Alkaline Phosphatase 77 units/L (35-129) 06/09/19 05:00 Total Protein 6.9 g/dL (6.3-8.2) 06/09/19 05:00 Albumin 3.7 g/dL (3.9-5) L 06/09/19 05:00 Albumin/Globulin Ratio 1.2 % 06/09/19 05:00 TSH 3.110 mlU/mL (0.270-4.200) 06/08/19 20:05 Free T4 1.67 ng/dL (0.76-1.46) H 06/08/19 20:05 Polanco/IV: Voiding Method Diaper IV Catheter Type [Right Peripheral IV Forearm] IV Catheter Type [Left Hand] INT / Saline Lock IV Catheter Type [Left Forearm INT / Saline Lock ] Active Medications - Current Medications Current Medications: Generic Name Dose Route Start Last Admin Trade Name Freq PRN Reason Stop Dose Admin Acetaminophen 650 mg 06/08/19 17:46 06/18/19 22:23 Tylenol PO 650 mg Q4H PRN Administration Pain MILD(1-3)/Fever >100.5/RUDD Amlodipine Besylate 5 mg 06/09/19 10:00 06/19/19 10:15 Amlodipine PO 5 mg DAILY PADMINI Administration Lipase/Protease/Amylase 1 each 06/09/19 08:[address] 10,500 Unit FEEDTUBE PRN PRN For Clogged Feeding Tube Atenolol 25 mg 06/08/19 22:00 06/19/19 10:14 Tenormin PO 25 mg BID PADMINI Administration Citalopram Hydrobromide 20 mg 06/09/19 10:00 06/19/19 10:14 Celexa PO 20 mg QDAY PADMINI Administration Heparin Sodium (Porcine) 5,000 unit 06/08/19 22:00 06/19/19 10:15 Heparin SUB-Q 5,000 unit Q12HR PADMINI Administration Hydralazine HCl 5 mg 06/17/19 00:51 06/17/19 01:18 Apresoline IV 5 mg Q6H PRN Administration Hypertension Dextrose/Sodium Chloride 1,000 mls @ 125 mls/hr 06/09/19 09:00 06/19/19 00:04 D5/0.45ns IV 125 mls/hr DIRECT PADMINI Administration Ondansetron HCl 4 mg 06/08/19 17:46 06/15/19 21:51 Zofran IV 4 mg Q8H PRN Administration Nausea And Vomiting Pantoprazole Sodium 40 mg 06/09/19 10:00 06/19/19 10:14 Protonix PO 40 mg QDAY PADMINI Administration Quetiapine Fumarate 100 mg 06/09/19 16:00 06/19/19 10:14 Seroquel PO 100 mg BID PADMINI Administration Simple Syrup 15 ml 06/09/19 08:44 Simple Syrup FEEDTUBE PRN PRN Hypoglycemia Simple Syrup 30 ml 06/09/19 08:44 Simple Syrup FEEDTUBE PRN PRN Hypoglycemia Sodium Bicarbonate 325 mg 06/09/19 08:44 Sodium Bicarbonate FEEDTUBE PRN PRN For Clogged Feeding Tube Sodium Chloride 10 ml 06/08/19 22:00 06/19/19 10:16 Sodium Chloride Flush Syringe 10 Ml IV Not Given BID PADMINI Sodium Chloride 10 ml 06/08/19 17:46 Sodium Chloride Flush Syringe 10 Ml IV PRN PRN LINE FLUSH Valproic Acid 250 mg 06/18/19 10:00 06/19/19 10:14 Depakene Liq FEEDTUBE 250 mg BID PADMINI Administration Nutrition/Malnutrition Assess - Dietary Evaluation Nutrition/Malnutrition Findings: Nutrition Notes Start: 06/09/19 09:01 Freq: Status: Active Protocol: Document 06/16/19 12:41 LM (Rec: 06/16/19 12:44 LM -[email or web address]) Nutrition Notes Initial or Follow up Reassessment Current Diagnosis Hypertension Other Pertinent Diagnosis Dementia w/ behavioral disturbances, metabolic encephalopathy Current Diet Tube Feedings. Labs/Tests Reviewed Pertinent Medications D5 at 125ml/hr Height 5 ft 1 in Weight 56.9 kg [place] Body Weight (kg) 47.72 BMI 23.7 Weight Status Appropriate Subjective/Other Information Per RN notes, pt is tolerating TF at goal. Percent of energy/protein needs met: 100%/100% Burn Absent Trauma Absent GI Symptoms None Current % PO Negligible Minimum of two criteria Yes Energy Intake (non-severe) <75% Estimated Energy Requirement >7 days Reduced [employer] Strength Measurably Reduced (severe) #1 Nutrition Diagnosis Malnutrition Diagnosis Progress(for reassessment Continues documentation) Is patient on ventilator? No Is Patient Ambulatory and/or Out of Bed No REE-([facility]-confined to bed) 1190.460 Calculation Used for Recommendations [facility] Additional Notes Protein: 68-85g (1.2-1.5g/kg) Fluid: 1 ml/kg Nutrition Intervention Change Diet Order: TF Nutrition Support: Promote 1.0 at 50ml/hr Flush 50ml q4h Kcal 1,200 Protein (gm) 75 Fluid (mL) 1,007 Goal #1 Meet at least 80% of kcal and protein needs via TF Anticipated Discharge Needs: unable to determine at this time Follow-Up By: 07/13/19 Additional Comments F/U for TF tolerance
--- NOTE | 2019-06-19 15:50 | Event Note ---
Date: 06/19/19 I called patient's daughter [phone] And spoke extensively about patient's condition, her tube feeding, her medications Her discharge plan to home with hospice. She had numerous questions, answered all of them.
[2019-06-20] MEDS: D5W/0.45% NACL 1,000 ML IV SCH (07:04)
[2019-06-20] MEDS: PANTOPRAZOLE 40 MG TAB PO SCH (09:51)
[2019-06-20] MEDS: CITALOPRAM 20 MG TAB PO SCH (09:51)
[2019-06-20] MEDS: atenoloL 25 MG TAB PO SCH ×2 (09:51→22:35)
[2019-06-20] MEDS: QUEtiapine 100 MG TAB PO SCH ×2 (09:51→22:27)
[2019-06-20] MEDS: amLODIPine 5 MG TAB PO SCH (09:51)
[2019-06-20] MEDS: VALPROIC ACID 250 MG/5 ML ORAL LIQD FEEDTUBE SCH ×2 (09:51→20:59)
[2019-06-20] MEDS: HEPARIN 5,000 UNIT/1 ML VIAL SUB-Q SCH ×2 (09:52→20:59)
--- NOTE | 2019-06-20 11:46 | Progress Note ---
Assessment and Plan Assessment and plan: Awaiting discharge home with hospice. Abnormal swallow, advised PEG, GI evaluated, family and refused Receiving NG tube feeding Possible discharge home with home health 1 to 2 days --Failure to thrive in adult/poor oral intake IV fluids, nutrition supplements, Dobbhoff placement, tube feeding until she is awake and able to eat --Abnormal swallow eval/recommend PEG placement continue NG tube feeding, GI consulted, for PEG placement GI evaluated recommend PEG, however the daughter, refused PEG procedure --Metabolic encephalopathy Current Visit: Yes Status: Acute. Multifactorial , psych conditions , dementia , poor oral intake , possible UTI CT head no acute abnormalities noted, neurochecks, supportive care --Possible urinary tract infection Current Visit: Yes Status: Acute Completed antibiotics, cultures negative to date -- Gastroesophageal reflux disease Current Visit: Yes Status: Acute PPI therapy, supportive care. --Vascular dementia with behavioral disturbance Current Visit: No Status: Chronic Ativan as needed, aspiration precaution, fall precautions, neuro check. PT OT --Hypokalemia; resolved --Abnormal TFTs Current Visit: Yes Status: Acute Abnormal thyroid function tests Normal TSH, very minimal elevation of T4 Will monitor and repeat the tests in a week -- DVT prophylaxis Current Visit: Yes Status: Acute SCD to bilateral lower extremities while in bed, prophylactic heparin -- Advance care planning/full CODE STATUS Current Visit: Yes Status: Acute Today 06/19/2019 I discussed in detail with patient's daughter Ms. Tam [phone] Patient's condition treatment and discharge plans, answered all her questions Hospice has evaluated the patient, home with hospice Patient is medically stable for discharge History Interval history: Patient seen and examined this morning Patient is sleeping easily awakens Confused at times Vital signs noted Hospitalist Physical - Constitutional Vitals: Temp Pulse Resp BP Pulse Ox 98.8 F 75 18 126/82 96 06/20/19 07:44 06/20/19 08:32 06/20/19 07:44 06/20/19 07:44 06/20/19 07:44 General appearance: Present: no acute distress, cachectic, disheveled, other (More alert and awake) - EENT Eyes: Present: PERRL, EOM intact - Neck Neck: Present: supple, normal ROM - Respiratory Respiratory effort: normal Respiratory: negative: rales, rhonchi, wheezing - Cardiovascular Rhythm: regular Heart Sounds: Present: S1 & S2 - Extremities Extremities: no ischemia, No edema - Abdominal General gastrointestinal: soft, non-tender, non-distended, normal bowel sounds - Integumentary Integumentary: Present: clear, warm - Psychiatric Psychiatric: other (Confused) - Neurologic Neurologic: moves all extremities Results - Labs CBC & Chem 7: 06/10/19 04:03 06/16/19 04:15 Labs: Laboratory Last Values WBC 7.2 K/mm3 (4.5-11.0) 06/10/19 04:03 RBC 3.49 M/mm3 (3.65-5.03) L 06/10/19 04:03 Hgb 10.9 gm/dl (10.1-14.3) 06/10/19 04:03 Hct 32.3 % (30.3-42.9) 06/10/19 04:03 MCV 93 fl (79-97) 06/10/19 04:03 MCH 31 pg (28-32) 06/10/19 04:03 MCHC 34 % (30-34) 06/10/19 04:03 RDW 14.1 % (13.2-15.2) 06/10/19 04:03 Plt Count 146 K/mm3 (140-440) 06/10/19 04:03 Lymph % (Auto) 22.0 % (13.4-35.0) 06/10/19 04:03 [place] % (Auto) 10.2 % (0.0-7.3) H 06/10/19 04:03 Eos % (Auto) 3.7 % (0.0-4.3) 06/10/19 04:03 Baso % (Auto) 0.6 % (0.0-1.8) 06/10/19 04:03 Lymph # 1.6 K/mm3 (1.2-5.4) 06/10/19 04:03 [place] # 0.7 K/mm3 (0.0-0.8) 06/10/19 04:03 Eos # 0.3 K/mm3 (0.0-0.4) 06/10/19 04:03 Baso # 0.0 K/mm3 (0.0-0.1) 06/10/19 04:03 Seg Neutrophils % 63.5 % (40.0-70.0) 06/10/19 04:03 Seg Neutrophils # 4.6 K/mm3 (1.8-7.7) 06/10/19 04:03 PT 12.9 Sec. (12.2-14.9) 06/16/19 04:15 INR 0.96 (0.87-1.13) 06/16/19 04:15 APTT 37.7 Sec. (24.2-36.6) H 06/16/19 04:15 Sodium 138 mmol/L (137-145) 06/11/19 04:02 Potassium 3.9 mmol/L (3.6-5.0) 06/16/19 04:15 Chloride 101.1 mmol/L (98-107) 06/11/19 04:02 Carbon Dioxide 27 mmol/L (22-30) 06/11/19 04:02 Anion Gap 13 mmol/L 06/11/19 04:02 BUN 36 mg/dL (7-17) H 06/11/19 04:02 Creatinine 0.7 mg/dL (0.7-1.2) 06/11/19 04:02 Estimated GFR > 60 ml/min 06/11/19 04:02 BUN/Creatinine Ratio 51 % 06/11/19 04:02 Glucose 106 mg/dL (65-100) H 06/11/19 04:02 POC Glucose 115 (70-105) H 06/20/19 06:43 Calcium 8.6 mg/dL (8.4-10.2) 06/11/19 04:02 Magnesium 1.80 mg/dL (1.7-2.3) 06/16/19 04:15 Total Bilirubin 0.70 mg/dL (0.1-1.2) 06/09/19 05:00 AST 30 units/L (5-40) 06/09/19 05:00 ALT 14 units/L (7-56) 06/09/19 05:00 Alkaline Phosphatase 77 units/L (35-129) 06/09/19 05:00 Total Protein 6.9 g/dL (6.3-8.2) 06/09/19 05:00 Albumin 3.7 g/dL (3.9-5) L 06/09/19 05:00 Albumin/Globulin Ratio 1.2 % 06/09/19 05:00 TSH 3.110 mlU/mL (0.270-4.200) 06/08/19 20:05 Free T4 1.67 ng/dL (0.76-1.46) H 06/08/19 20:05 Polanco/IV: Voiding Method External Female Catheter IV Catheter Type [Right Peripheral IV Forearm] IV Catheter Type [Left Hand] INT / Saline Lock IV Catheter Type [Left Forearm INT / Saline Lock ] Active Medications - Current Medications Current Medications: Generic Name Dose Route Start Last Admin Trade Name Freq PRN Reason Stop Dose Admin Acetaminophen 650 mg 06/08/19 17:46 06/18/19 22:23 Tylenol PO 650 mg Q4H PRN Administration Pain MILD(1-3)/Fever >100.5/RUDD Amlodipine Besylate 5 mg 06/09/19 10:00 06/20/19 09:51 Amlodipine PO 5 mg DAILY PADMINI Administration Lipase/Protease/Amylase 1 each 06/09/19 08:[address] 10,500 Unit FEEDTUBE PRN PRN For Clogged Feeding Tube Atenolol 25 mg 06/08/19 22:00 06/20/19 09:51 Tenormin PO 25 mg BID PADMINI Administration Citalopram Hydrobromide 20 mg 06/09/19 10:00 06/20/19 09:51 Celexa PO 20 mg QDAY PADMINI Administration Heparin Sodium (Porcine) 5,000 unit 06/08/19 22:00 06/20/19 09:52 Heparin SUB-Q 5,000 unit Q12HR PADMINI Administration Hydralazine HCl 5 mg 06/17/19 00:51 06/17/19 01:18 Apresoline IV 5 mg Q6H PRN Administration Hypertension Dextrose/Sodium Chloride 1,000 mls @ 125 mls/hr 06/09/19 09:00 06/20/19 07:04 D5/0.45ns IV 125 mls/hr DIRECT PADMINI Administration Ondansetron HCl 4 mg 06/08/19 17:46 06/15/19 21:51 Zofran IV 4 mg Q8H PRN Administration Nausea And Vomiting Pantoprazole Sodium 40 mg 06/09/19 10:00 06/20/19 09:51 Protonix PO 40 mg QDAY PADMINI Administration Quetiapine Fumarate 100 mg 06/09/19 16:00 06/20/19 09:51 Seroquel PO 100 mg BID PADMINI Administration Simple Syrup 15 ml 06/09/19 08:44 Simple Syrup FEEDTUBE PRN PRN Hypoglycemia Simple Syrup 30 ml 06/09/19 08:44 Simple Syrup FEEDTUBE PRN PRN Hypoglycemia Sodium Bicarbonate 325 mg 06/09/19 08:44 Sodium Bicarbonate FEEDTUBE PRN PRN For Clogged Feeding Tube Sodium Chloride 10 ml 06/08/19 22:00 06/19/19 22:54 Sodium Chloride Flush Syringe 10 Ml IV Not Given BID PADMINI Sodium Chloride 10 ml 06/08/19 17:46 Sodium Chloride Flush Syringe 10 Ml IV PRN PRN LINE FLUSH Valproic Acid 250 mg 06/18/19 10:00 06/20/19 09:51 Depakene Liq FEEDTUBE 250 mg BID PADMINI Administration Nutrition/Malnutrition Assess - Dietary Evaluation Nutrition/Malnutrition Findings: Nutrition Notes Start: 06/09/19 09:01 Freq: Status: Active Protocol: Document 06/16/19 12:41 LM (Rec: 06/16/19 12:44 LM [email or web address]) Nutrition Notes Initial or Follow up Reassessment Current Diagnosis Hypertension Other Pertinent Diagnosis Dementia w/ behavioral disturbances, metabolic encephalopathy Current Diet Tube Feedings. Labs/Tests Reviewed Pertinent Medications D5 at 125ml/hr Height 5 ft 1 in Weight 56.9 kg [place] Body Weight (kg) 47.72 BMI 23.7 Weight Status Appropriate Subjective/Other Information Per RN notes, pt is tolerating TF at goal. Percent of energy/protein needs met: 100%/100% Burn Absent Trauma Absent GI Symptoms None Current % PO Negligible Minimum of two criteria Yes Energy Intake (non-severe) <75% Estimated Energy Requirement >7 days Reduced Tub Operator Strength Measurably Reduced (severe) #1 Nutrition Diagnosis Malnutrition Diagnosis Progress(for reassessment Continues documentation) Is patient on ventilator? No Is Patient Ambulatory and/or Out of Bed No REE-([facility]-confined to bed) 1190.460 Calculation Used for Recommendations [facility] Additional Notes Protein: 68-85g (1.2-1.5g/kg) Fluid: 1 ml/kg Nutrition Intervention Change Diet Order: TF Nutrition Support: Promote 1.0 at 50ml/hr Flush 50ml q4h Kcal 1,200 Protein (gm) 75 Fluid (mL) 1,007 Goal #1 Meet at least 80% of kcal and protein needs via TF Anticipated Discharge Needs: unable to determine at this time Follow-Up By: 07/13/19 Additional Comments F/U for TF tolerance
[2019-06-21] MEDS: D5W/0.45% NACL 1,000 ML IV SCH ×3 (01:49→18:11)
[2019-06-21] MEDS: amLODIPine 5 MG TAB PO SCH (10:36)
[2019-06-21] MEDS: VALPROIC ACID 250 MG/5 ML ORAL LIQD FEEDTUBE SCH ×2 (10:37→21:44)
[2019-06-21] MEDS: CITALOPRAM 20 MG TAB PO SCH (10:37)
[2019-06-21] MEDS: HEPARIN 5,000 UNIT/1 ML VIAL SUB-Q SCH ×2 (10:37→21:44)
[2019-06-21] MEDS: PANTOPRAZOLE 40 MG TAB PO SCH (10:38)
[2019-06-21] MEDS: QUEtiapine 100 MG TAB PO SCH ×2 (10:38→21:44)
[2019-06-21] MEDS: atenoloL 25 MG TAB PO SCH ×2 (10:39→21:45)
--- NOTE | 2019-06-21 11:37 | Progress Note ---
Assessment and Plan Assessment and plan: Awaiting discharge home with hospice. Abnormal swallow, advised PEG, GI evaluated, family and refused Receiving NG tube feeding Possible discharge home with home health 1 to 2 days --Failure to thrive in adult/poor oral intake IV fluids, nutrition supplements, Dobbhoff placement, tube feeding until she is awake and able to eat --Abnormal swallow eval/recommend PEG placement continue NG tube feeding, GI consulted, for PEG placement GI evaluated recommend PEG, however the daughter, refused PEG procedure --Metabolic encephalopathy Current Visit: Yes Status: Acute. Multifactorial , psych conditions , dementia , poor oral intake , possible UTI CT head no acute abnormalities noted, neurochecks, supportive care --Possible urinary tract infection Current Visit: Yes Status: Acute Completed antibiotics, cultures negative to date -- Gastroesophageal reflux disease Current Visit: Yes Status: Acute PPI therapy, supportive care. --Vascular dementia with behavioral disturbance Current Visit: No Status: Chronic Ativan as needed, aspiration precaution, fall precautions, neuro check. PT OT --Hypokalemia; resolved --Abnormal TFTs Current Visit: Yes Status: Acute Abnormal thyroid function tests Normal TSH, very minimal elevation of T4 Will monitor and repeat the tests in a week -- DVT prophylaxis Current Visit: Yes Status: Acute SCD to bilateral lower extremities while in bed, prophylactic heparin -- Advance care planning/full CODE STATUS Current Visit: Yes Status: Acute 06/19/2019 I discussed in detail with patient's daughter Ms. Tam [phone] Patient's condition treatment and discharge plans, answered all her questions Hospice has evaluated the patient, pending home with hospice Patient is medically stable for discharge Disposition; [facility] home hospice is set up If patient is medically stable History Interval history: Patient seen and examined at bedside Patient's chart medications nurses documentation reviewed Patient is alert and awake minimally communicative confused Restraint for safety, Receiving tube feeding Awaiting discharge home with home hospice Vital signs noted Hospitalist Physical - Constitutional Vitals: Temp Pulse Resp BP Pulse Ox 97.6 F 80 18 130/82 97 06/21/19 08:01 06/21/19 10:39 06/21/19 08:01 06/21/19 10:39 06/21/19 08:01 General appearance: Present: no acute distress, cachectic, disheveled, other (More alert and awake) - EENT Eyes: Present: PERRL, EOM intact - Neck Neck: Present: supple, normal ROM - Respiratory Respiratory effort: normal Respiratory: negative: rales, rhonchi, wheezing - Cardiovascular Rhythm: regular Heart Sounds: Present: S1 & S2 - Extremities Extremities: no ischemia, No edema - Abdominal General gastrointestinal: soft, non-tender, non-distended, normal bowel sounds - Integumentary Integumentary: Present: clear, warm - Psychiatric Psychiatric: appropriate mood/affect, cooperative - Neurologic Neurologic: moves all extremities Results - Labs CBC & Chem 7: 06/10/19 04:03 06/16/19 04:15 Labs: Laboratory Last Values WBC 7.2 K/mm3 (4.5-11.0) 06/10/19 04:03 RBC 3.49 M/mm3 (3.65-5.03) L 06/10/19 04:03 Hgb 10.9 gm/dl (10.1-14.3) 06/10/19 04:03 Hct 32.3 % (30.3-42.9) 06/10/19 04:03 MCV 93 fl (79-97) 06/10/19 04:03 MCH 31 pg (28-32) 06/10/19 04:03 MCHC 34 % (30-34) 06/10/19 04:03 RDW 14.1 % (13.2-15.2) 06/10/19 04:03 Plt Count 146 K/mm3 (140-440) 06/10/19 04:03 Lymph % (Auto) 22.0 % (13.4-35.0) 06/10/19 04:03 [place] % (Auto) 10.2 % (0.0-7.3) H 06/10/19 04:03 Eos % (Auto) 3.7 % (0.0-4.3) 06/10/19 04:03 Baso % (Auto) 0.6 % (0.0-1.8) 06/10/19 04:03 Lymph # 1.6 K/mm3 (1.2-5.4) 06/10/19 04:03 [place] # 0.7 K/mm3 (0.0-0.8) 06/10/19 04:03 Eos # 0.3 K/mm3 (0.0-0.4) 06/10/19 04:03 Baso # 0.0 K/mm3 (0.0-0.1) 06/10/19 04:03 Seg Neutrophils % 63.5 % (40.0-70.0) 06/10/19 04:03 Seg Neutrophils # 4.6 K/mm3 (1.8-7.7) 06/10/19 04:03 PT 12.9 Sec. (12.2-14.9) 06/16/19 04:15 INR 0.96 (0.87-1.13) 06/16/19 04:15 APTT 37.7 Sec. (24.2-36.6) H 06/16/19 04:15 Sodium 138 mmol/L (137-145) 06/11/19 04:02 Potassium 3.9 mmol/L (3.6-5.0) 06/16/19 04:15 Chloride 101.1 mmol/L (98-107) 06/11/19 04:02 Carbon Dioxide 27 mmol/L (22-30) 06/11/19 04:02 Anion Gap 13 mmol/L 06/11/19 04:02 BUN 36 mg/dL (7-17) H 06/11/19 04:02 Creatinine 0.7 mg/dL (0.7-1.2) 06/11/19 04:02 Estimated GFR > 60 ml/min 06/11/19 04:02 BUN/Creatinine Ratio 51 % 06/11/19 04:02 Glucose 106 mg/dL (65-100) H 06/11/19 04:02 POC Glucose 125 (70-105) H 06/21/19 11:29 Calcium 8.6 mg/dL (8.4-10.2) 06/11/19 04:02 Magnesium 1.80 mg/dL (1.7-2.3) 06/16/19 04:15 Total Bilirubin 0.70 mg/dL (0.1-1.2) 06/09/19 05:00 AST 30 units/L (5-40) 06/09/19 05:00 ALT 14 units/L (7-56) 06/09/19 05:00 Alkaline Phosphatase 77 units/L (35-129) 06/09/19 05:00 Total Protein 6.9 g/dL (6.3-8.2) 06/09/19 05:00 Albumin 3.7 g/dL (3.9-5) L 06/09/19 05:00 Albumin/Globulin Ratio 1.2 % 06/09/19 05:00 TSH 3.110 mlU/mL (0.270-4.200) 06/08/19 20:05 Free T4 1.67 ng/dL (0.76-1.46) H 06/08/19 20:05 Pol[place]/IV: Voiding Method External Female Catheter IV Catheter Type [Right Peripheral IV Forearm] IV Catheter Type [Left Hand] INT / Saline Lock IV Catheter Type [Left Forearm INT / Saline Lock ] Active Medications - Current Medications Current Medications: Generic Name Dose Route Start Last Admin Trade Name Freq PRN Reason Stop Dose Admin Acetaminophen 650 mg 06/08/19 17:46 06/18/19 22:23 Tylenol PO 650 mg Q4H PRN Administration Pain MILD(1-3)/Fever >100.5/RUDD Amlodipine Besylate 5 mg 06/09/19 10:00 06/21/19 10:36 Amlodipine PO 5 mg DAILY PADMINI Administration Lipase/Protease/Amylase 1 each 06/09/19 08:[address] 10,500 Unit FEEDTUBE PRN PRN For Clogged Feeding Tube Atenolol 25 mg 06/08/19 22:00 06/21/19 10:39 Tenormin PO 25 mg BID PADMINI Administration Citalopram Hydrobromide 20 mg 06/09/19 10:00 06/21/19 10:37 Celexa PO 20 mg QDAY PADMINI Administration Heparin Sodium (Porcine) 5,000 unit 06/08/19 22:00 06/21/19 10:37 Heparin SUB-Q 5,000 unit Q12HR PADMINI Administration Hydralazine HCl 5 mg 06/17/19 00:51 06/17/19 01:18 Apresoline IV 5 mg Q6H PRN Administration Hypertension Dextrose/Sodium Chloride 1,000 mls @ 125 mls/hr 06/09/19 09:00 06/21/19 10:35 D5/0.45ns IV 125 mls/hr DIRECT PADMINI Administration Ondansetron HCl 4 mg 06/08/19 17:46 06/15/19 21:51 Zofran IV 4 mg Q8H PRN Administration Nausea And Vomiting Pantoprazole Sodium 40 mg 06/09/19 10:00 06/21/19 10:38 Protonix PO 40 mg QDAY PADMINI Administration Quetiapine Fumarate 100 mg 06/09/19 16:00 06/21/19 10:38 Seroquel PO 100 mg BID PADMINI Administration Simple Syrup 15 ml 06/09/19 08:44 Simple Syrup FEEDTUBE PRN PRN Hypoglycemia Simple Syrup 30 ml 06/09/19 08:44 Simple Syrup FEEDTUBE PRN PRN Hypoglycemia Sodium Bicarbonate 325 mg 06/09/19 08:44 Sodium Bicarbonate FEEDTUBE PRN PRN For Clogged Feeding Tube Sodium Chloride 10 ml 06/08/19 22:00 06/21/19 10:38 Sodium Chloride Flush Syringe 10 Ml IV Not Given BID PADMINI Sodium Chloride 10 ml 06/08/19 17:46 Sodium Chloride Flush Syringe 10 Ml IV PRN PRN LINE FLUSH Valproic Acid 250 mg 06/18/19 10:00 06/21/19 10:37 Depakene Liq FEEDTUBE 250 mg BID PADMINI Administration Nutrition/Malnutrition Assess - Dietary Evaluation Nutrition/Malnutrition Findings: Nutrition Notes Start: 06/09/19 09:01 Freq: Status: Active Protocol: Document 06/16/19 12:41 LM (Rec: 06/16/19 12:44 LM [id number]) Nutrition Notes Initial or Follow up Reassessment Current Diagnosis Hypertension Other Pertinent Diagnosis Dementia w/ behavioral disturbances, metabolic encephalopathy Current Diet Tube Feedings. Labs/Tests Reviewed Pertinent Medications D5 at 125ml/hr Height 5 ft 1 in Weight 56.9 kg [place] Body Weight (kg) 47.72 BMI 23.7 Weight Status Appropriate Subjective/Other Information Per RN notes, pt is tolerating TF at goal. Percent of energy/protein needs met: 100%/100% Burn Absent Trauma Absent GI Symptoms None Current % PO Negligible Minimum of two criteria Yes Energy Intake (non-severe) <75% Estimated Energy Requirement >7 days Reduced Desk Lieutenant Strength Measurably Reduced (severe) #1 Nutrition Diagnosis Malnutrition Diagnosis Progress(for reassessment Continues documentation) Is patient on ventilator? No Is Patient Ambulatory and/or Out of Bed No REE-(Kane-St. Jeor-confined to bed) 1190.460 Calculation [facility]ations [facility] Additional Notes Protein: 68-85g (1.2-1.5g/kg) Fluid: 1 ml/kg Nutrition Intervention Change Diet Order: TF Nutrition Support: Promote 1.0 at 50ml/hr Flush 50ml q4h Kcal 1,200 Protein (gm) 75 Fluid (mL) 1,007 Goal #1 Meet at least 80% of kcal and protein needs via TF Anticipated Discharge Needs: unable to determine at this time Follow-Up By: 07/13/19 Additional Comments F/U for TF tolerance
[2019-06-22] MEDS: D5W/0.45% NACL 1,000 ML IV SCH ×3 (06:18→22:08)
[2019-06-22] MEDS: QUEtiapine 100 MG TAB PO SCH ×2 (09:36→21:39)
[2019-06-22] MEDS: CITALOPRAM 20 MG TAB PO SCH (09:36)
[2019-06-22] MEDS: PANTOPRAZOLE 40 MG TAB PO SCH (09:36)
[2019-06-22] MEDS: amLODIPine 5 MG TAB PO SCH (09:37)
[2019-06-22] MEDS: atenoloL 25 MG TAB PO SCH ×2 (09:37→21:38)
[2019-06-22] MEDS: HEPARIN 5,000 UNIT/1 ML VIAL SUB-Q SCH ×2 (09:39→21:39)
[2019-06-22] MEDS: VALPROIC ACID 250 MG/5 ML ORAL LIQD FEEDTUBE SCH ×2 (09:44→21:38)
--- NOTE | 2019-06-22 14:17 | Progress Note ---
Assessment and Plan /Failure to thrive in adult/poor oral intake Continue IV fluids, nutrition supplements, Dobbhoff placement, tube feeding until she is awake and able to eat /Dysphagia with abnormal swallow eval: recommend PEG placement continue NG tube feeding, GI evaluated recommend PEG, however the daughter refused PEG procedure /Metabolic encephalopathy Multifactorial , psych conditions , dementia , poor oral intake , possible UTI CT head no acute abnormalities noted, continue frequent neurochecks and supportive care /Possible urinary tract infection Completed antibiotics, cultures negative to date / Gastroesophageal reflux disease PPI therapy, supportive care. /Vascular dementia with behavioral disturbance Ativan as needed, aspiration precaution, fall precautions, neuro check. PT OT ordered /Hypokalemia; repleted /Abnormal TFTs Abnormal thyroid function tests Normal TSH, very minimal elevation of T4 Will need to monitor and repeat the tests in a week / DVT prophylaxis SCD to bilateral lower extremities while in bed, prophylactic heparin /Advance care planning: full code 06/19/2019: discussed in detail with patient's daughter Ms. Tam [phone] Patient's condition treatment and discharge plans, answered all her questions Hospice has evaluated the patient, pending home with hospice. Patient is medically stable for discharge Disposition; Awaiting discharge home with hospice. Brief history: 78 YO Female with Dementia, Debility, GERD, HTN, Anxiety admitted directly to the hospital medicine service from the [facility] service for altered mental status. As per staff the patient has experienced decreased oral intake, decreased verbalization, and increased confusion over the past 3 days with progressively worsening symptoms. A urinalysis was obtained and the patient was found to have urinary tract infection, as well as volume depletion. Patient initiated on IV antibiotic therapy as well as IV fluid resuscitation therapy. Patient remained nonverbal and failed speech eval. Patient was recommended for PEG tube placement but family refused and requested for hospice service at home. Patient now waiting for home hospice set up. Hospitalist Physical General appearance: Present: no acute distress, cachectic, disheveled, other (alert and awake but nonverbal) - EENT Eyes: Present: PERRL, EOM intact - Neck Neck: Present: supple, normal ROM - Respiratory Respiratory effort: normal Respiratory: negative: rales, rhonchi, wheezing - Cardiovascular Rhythm: regular Heart Sounds: Present: S1 & S2 - Extremities Extremities: no ischemia, No edema - Abdominal General gastrointestinal: soft, non-tender, non-distended, normal bowel sounds - Integumentary Integumentary: Present: clear, warm - Psychiatric Psychiatric: Unable to assess - Neurologic Neurologic: moves all extremities Subjective Date of service: 06/22/19 Interval history: Patient seen and examined. Medical records and medication list reviewed. No acute event overnight noted by the RN. Patient remains on NG tube for tube feeding, patient is nonverbal and does not follow any command Discussed plan of care at bedside with patient's RN. Objective - Constitutional Vitals: Vital Signs - 12hr 06/22/19 06/22/19 06/22/19 03:45 04:48 07:27 Temperature 98.7 F 97.9 F Pulse Rate 73 73 83 Respiratory 16 16 Rate Blood Pressure 146/79 142/80 Blood Pressure [Left] O2 Sat by Pulse 94 96 Oximetry 06/22/19 06/22/19 06/22/19 09:37 10:00 12:19 Temperature 98.0 F Pulse Rate 83 78 90 Respiratory 18 Rate Blood Pressure 142/80 Blood Pressure 114/70 [Left] O2 Sat by Pulse 90 Oximetry - Labs CBC & Chem 7: 06/10/19 04:03 06/16/19 04:15 Labs: Abnormal lab results 06/22/19 06/22/19 06/22/19 Range/Units 00:10 06:07 12:09 POC Glucose 139 H 113 H 137 H (70-105)
[2019-06-23] MEDS: CITALOPRAM 20 MG TAB PO SCH (09:24)
[2019-06-23] MEDS: PANTOPRAZOLE 40 MG TAB PO SCH (09:24)
[2019-06-23] MEDS: QUEtiapine 100 MG TAB PO SCH ×2 (09:24→21:29)
[2019-06-23] MEDS: VALPROIC ACID 250 MG/5 ML ORAL LIQD FEEDTUBE SCH ×2 (09:25→21:29)
[2019-06-23] MEDS: HEPARIN 5,000 UNIT/1 ML VIAL SUB-Q SCH ×2 (09:26→21:29)
[2019-06-23] MEDS: amLODIPine 5 MG TAB PO SCH (09:27)
[2019-06-23] MEDS: atenoloL 25 MG TAB PO SCH ×2 (09:27→21:28)
[2019-06-23] MEDS: D5W/0.45% NACL 1,000 ML IV SCH ×2 (09:37→21:26)
--- NOTE | 2019-06-23 13:46 | Progress Note ---
Assessment and Plan /Failure to thrive in adult/poor oral intake Continue IV fluids, nutrition supplements, Dobbhoff placement, tube feeding until she is awake and able to eat /Dysphagia with abnormal swallow eval: recommend PEG placement continue NG tube feeding, GI evaluated recommend PEG, however the daughter refused PEG procedure /Metabolic encephalopathy Multifactorial , psych conditions , dementia , poor oral intake , possible UTI CT head no acute abnormalities noted, continue frequent neurochecks and supportive care /Possible urinary tract infection Completed antibiotics, cultures negative to date / Gastroesophageal reflux disease PPI therapy, supportive care. /Vascular dementia with behavioral disturbance Ativan as needed, aspiration precaution, fall precautions, neuro check. PT OT ordered /Hypokalemia; repleted /Abnormal TFTs Abnormal thyroid function tests Normal TSH, very minimal elevation of T4 Will need to monitor and repeat the tests in a week / DVT prophylaxis SCD to bilateral lower extremities while in bed, prophylactic heparin /Advance care planning: full code 06/19/2019: discussed in detail with patient's daughter Ms. Tam [phone] Patient's condition treatment and discharge plans, answered all her questions Hospice has evaluated the patient, pending home with hospice. Patient is medically stable for discharge Disposition; Awaiting discharge home with hospice. called patient's daughter and she is unable to accept patient before this Friday Brief history: 78 YO Female with Dementia, Debility, GERD, HTN, Anxiety admitted directly to the hospital medicine service from the [facility] service for altered mental status. As per staff the patient has experienced decreased oral intake, decreased verbalization, and increased confusion over the past 3 days with progressively worsening symptoms. A urinalysis was obtained and the patient was found to have urinary tract infection, as well as volume depletion. Patient initiated on IV antibiotic therapy as well as IV fluid resuscitation therapy. Patient remained nonverbal and failed speech eval. Patient was recommended for PEG tube placement but family refused and requested for hospice service at home. Patient now waiting for home hospice set up. Hospitalist Physical General appearance: Present: no acute distress, cachectic, disheveled, other (alert and awake but nonverbal) - EENT Eyes: Present: PERRL, EOM intact - Neck Neck: Present: supple, normal ROM - Respiratory Respiratory effort: normal Respiratory: negative: rales, rhonchi, wheezing - Cardiovascular Rhythm: regular Heart Sounds: Present: S1 & S2 - Extremities Extremities: no ischemia, No edema - Abdominal General gastrointestinal: soft, non-tender, non-distended, normal bowel sounds - Integumentary Integumentary: Present: clear, warm - Psychiatric Psychiatric: Unable to assess - Neurologic Neurologic: moves all extremities Subjective Date of service: 06/23/19 Interval history: Patient seen and examined. Medical records and medication list reviewed. No acute event overnight noted by the RN. Patient remains on NG tube for tube feeding, patient is nonverbal and does not follow any command Discussed plan of care at bedside with patient's RN. called patient's daughter Objective - Constitutional Vitals: Vital Signs - 12hr 06/23/19 06/23/19 06/23/19 03:22 07:11 09:27 Temperature 98.2 F 98.0 F Pulse Rate 67 77 77 Respiratory 16 20 Rate Blood Pressure 107/69 135/79 135/79 O2 Sat by Pulse 90 96 Oximetry 06/23/19 06/23/19 10:00 12:28 Temperature 97.8 F Pulse Rate 81 80 Respiratory 20 Rate Blood Pressure 137/71 O2 Sat by Pulse 95 Oximetry - Labs CBC & Chem 7: 06/10/19 04:03 06/16/19 04:15 Labs: Abnormal lab results 06/22/19 06/22/19 06/23/19 Range/Units 17:02 23:43 06:40 POC Glucose 106 H 117 H 107 H (70-105) 06/23/19 Range/Units 12:36 POC Glucose 106 H (70-105)
[2019-06-24] MEDS: D5W/0.45% NACL 1,000 ML IV SCH ×2 (05:08→14:37)
[2019-06-24] MEDS: PANTOPRAZOLE 40 MG TAB PO SCH (09:25)
[2019-06-24] MEDS: CITALOPRAM 20 MG TAB PO SCH (09:25)
[2019-06-24] MEDS: amLODIPine 5 MG TAB PO SCH (09:25)
[2019-06-24] MEDS: QUEtiapine 100 MG TAB PO SCH ×2 (09:25→22:13)
[2019-06-24] MEDS: VALPROIC ACID 250 MG/5 ML ORAL LIQD FEEDTUBE SCH ×2 (09:25→22:13)
[2019-06-24] MEDS: HEPARIN 5,000 UNIT/1 ML VIAL SUB-Q SCH ×2 (09:27→22:13)
[2019-06-24] MEDS: atenoloL 25 MG TAB PO SCH ×2 (09:28→22:13)
--- NOTE | 2019-06-24 15:12 | Discharge Summary ---
Providers - Providers Date of Admission: 06/08/19 19:07 Date of discharge: 06/25/19 Attending physician: JULIANN MOORE 06/09/19 07:00 Consult to Mental Health [CONS] Routine Reason For Exam: Psychosis 06/09/19 08:44 Consult to Dietitian/Nutrition [CONS] Routine Physician Instructions: Assess nutrtn needs, initiate, modify, manage TF Reason For Exam: Reason for Consult: Write/Manage Tube Feeding Reason for Consult: Write/Manage Tube Feeding 06/09/19 12:30 Occupational Therapy Evaluate and Treat [CONS] Routine Comment: Reason For Exam: generalized weakness Physical Therapy Evaluation and Treat [CONS] Routine Comment: Reason For Exam: generalized weakness 06/10/19 20:18 Speech Therapy Evaluation and Treat [CONS] Routine Reason For Exam: Speech and swallow evaluation 06/15/19 10:23 Consult to Physician [CONS] Routine Comment: Consulting Provider: CHRIS ARELLANO Physician Instructions: Reason For Exam: failed swallow.spech/swallow rec/PEG placement 06/17/19 08:10 Speech Therapy Evaluation and Treat [CONS] Routine Reason For Exam: Pl re evaluate swallow, patient more alert. Primary care physician: RN EMBEDDED Hospitalization Pertinent studies: Head CT, abdominal x-rays Hospital course: 78 YO Female with Dementia, Debility, GERD, HTN, Anxiety admitted directly to the hospital medicine service from the [facility] service for altered mental status. As per staff the patient has experienced decreased oral intake, decreased verbalization, and increased confusion over the past 3 days with progressively worsening symptoms. A urinalysis was obtained and the patient was found to have urinary tract infection, as well as volume depletion. Patient initiated on IV antibiotic therapy as well as IV fluid resuscitation therapy. Patient remained nonverbal and failed speech eval. Patient was recommended for PEG tube placement but family refused and requested for hospice service at home. Patient was then discharged home in stable condition with hospice. Discharge diagnosis and management /Failure to thrive in adult/poor oral intake s/p IV fluids, nutrition supplements, Status post Dobbhoff placement for tube feeding Family did not want PEG tube, requested for hospice service /Dysphagia with abnormal swallow eval: recommend PEG placement GI evaluated recommend PEG, however the daughter refused PEG procedure /Metabolic encephalopathy Multifactorial : psych conditions , dementia , poor oral intake , possible UTI CT head no acute abnormalities noted, monitored with frequent neurochecks and supportive care /Possible urinary tract infection Completed antibiotics, cultures negative to date / Gastroesophageal reflux disease PPI therapy, supportive care. /Vascular dementia with behavioral disturbance placed on Ativan as needed, aspiration precaution, fall precautions, frequent neuro check. PT OT ordered /Hypokalemia; repleted /Abnormal TFTs Abnormal thyroid function tests Normal TSH, very minimal elevation of T4 / DVT prophylaxis SCD to bilateral lower extremities while in bed, prophylactic heparin /Advance care planning: full code 06/19/2019: discussed in detail with patient's daughter Ms. Tam [phone] Patient's condition treatment and discharge plans, answered all her questions Patient is medically stable for discharge Disposition; home hospice Hospitalist Physical General appearance: Present: no acute distress, cachectic, disheveled, other (alert and awake but nonverbal) - EENT Eyes: Present: PERRL, EOM intact - Neck Neck: Present: supple, normal ROM - Respiratory Respiratory effort: normal Respiratory: negative: rales, rhonchi, wheezing - Cardiovascular Rhythm: regular Heart Sounds: Present: S1 & S2 - Extremities Extremities: no ischemia, No edema - Abdominal General gastrointestinal: soft, non-tender, non-distended, normal bowel sounds - Integumentary Integumentary: Present: clear, warm - Psychiatric Psychiatric: Unable to assess - Neurologic Neurologic: moves all extremities Disposition: DC-50 TO HOSPICE (HOME) Time spent for discharge: 34 minutes Core Measure Documentation - Palliative Care Palliative Care/ Comfort Measures: Not Applicable - Core Measures Any of the following diagnoses?: none Exam - Constitutional Vitals: Temp Pulse Resp BP Pulse Ox 98.0 F 73 20 148/80 97 06/24/19 07:16 06/24/19 11:28 06/24/19 07:16 06/24/19 07:16 06/24/19 11:28 Plan Activity: up only with assistance Follow up with: PRIMARY MD JORY [Primary Care Provider] - 7 Days
[2019-06-24] MEDS: ACETAMINOPHEN 325 MG TAB PO PRN (22:33)
[2019-06-24] MEDS: ONDANSETRON 4 MG/2 ML INJ IV PRN (22:35)
--- NOTE | 2019-06-25 08:04 | Progress Note ---
Assessment and Plan /Failure to thrive in adult/poor oral intake Continue IV fluids, nutrition supplements, s/p Dobbhoff placement, cont tube feeding until home hospice set up /Dysphagia with abnormal swallow eval: recommend PEG placement continue NG tube feeding, GI evaluated recommend PEG, however the daughter refused PEG procedure /Metabolic encephalopathy Multifactorial , psych conditions , dementia , poor oral intake , possible UTI CT head no acute abnormalities noted, continue frequent neurochecks and supportive care /Possible urinary tract infection Completed antibiotics, cultures negative to date / Gastroesophageal reflux disease PPI therapy, supportive care. /Vascular dementia with behavioral disturbance Ativan as needed, aspiration precaution, fall precautions, neuro check. PT OT ordered /Hypokalemia; repleted /Abnormal TFTs Abnormal thyroid function tests Normal TSH, very minimal elevation of T4 Will need to monitor and repeat the tests in a week / DVT prophylaxis SCD to bilateral lower extremities while in bed, prophylactic heparin /Advance care planning: full code 06/19/2019: discussed in detail with patient's daughter Ms. Tam [phone] Patient's condition treatment and discharge plans, answered all her questions 06/22/2019: MD called daughter and discussed about home hospice set up. Per daughter she has prior commitments and she will not be able to accept the patient before coming Friday. Hospice has evaluated the patient, pending home with hospice. Patient is medically stable for discharge Disposition; Awaiting discharge home with hospice. called patient's daughter and she is unable to accept patient before this Friday Brief history: 78 YO Female with Dementia, Debility, GERD, HTN, Anxiety admitted directly to the hospital medicine service from the [facility] for altered mental status. As per staff the patient has experienced decreased oral intake, decreased verbalization, and increased confusion over the past 3 days with progressively worsening symptoms. A urinalysis was obtained and the patient was found to have urinary tract infection, as well as volume depletion. Patient initiated on IV antibiotic therapy as well as IV fluid resuscitation therapy. Patient remained nonverbal and failed speech eval. Patient was recommended for PEG tube placement but family refused and requested for hospice service at home. Patient now waiting for home hospice set up. Hospitalist Physical General appearance: Present: no acute distress, cachectic, disheveled, other (alert and awake but nonverbal) - EENT Eyes: Present: PERRL, EOM intact - Neck Neck: Present: supple, normal ROM - Respiratory Respiratory effort: normal Respiratory: negative: rales, rhonchi, wheezing - Cardiovascular Rhythm: regular Heart Sounds: Present: S1 & S2 - Extremities Extremities: no ischemia, No edema - Abdominal General gastrointestinal: soft, non-tender, non-distended, normal bowel sounds - Integumentary Integumentary: Present: clear, warm - Psychiatric Psychiatric: Unable to assess - Neurologic Neurologic: moves all extremities Subjective Date of service: 06/24/19 Interval history: Patient seen and examined. Medical records and medication list reviewed. No acute event overnight noted by the RN. Patient remains on NG tube for tube feeding, patient is nonverbal and does not follow any command Discussed plan of care at bedside with patient's RN. discharge pending on home hospice set up Objective - Constitutional Vitals: Vital Signs - 12hr 06/24/19 06/25/19 23:26 03:52 Temperature 97.4 F L 97.4 F L Pulse Rate 78 77 Respiratory 18 16 Rate Blood Pressure 99/63 137/75 O2 Sat by Pulse 91 92 Oximetry - Labs CBC & Chem 7: 06/10/19 04:03 06/16/19 04:15 Labs: Abnormal lab results 06/24/19 Range/Units 11:43 POC Glucose 119 H (70-105)
[2019-06-25 08:20] VITALS: BP 140/91
== END 2019-06-25 10:00 | disposition hospice, home (50) | DRG 71 ==
LOC: 2B-ACE 17:29 → UNDOADMIN 17:29 → 2B-ACE 19:07 → 4A 06-13 21:26
PROVIDERS: ADMIT Internal Medicine; ATTEND Internal Medicine
DX: G93.41 Metabolic encephalopathy (principal); N39.0 Urinary tract infection, site not specified; E87.6 Hypokalemia; K21.9 Gastro-esophageal reflux disease without esophagitis; F01.50 Vascular dementia, unspecified severity, without behavioral disturbance, psychotic disturbance, mood disturbance, and anxiety; R62.7 Adult failure to thrive; I10 Essential (primary) hypertension; F41.9 Anxiety disorder, unspecified; R13.12 Dysphagia, oropharyngeal phase; F29 Unspecified psychosis not due to a substance or known physiological condition; Z88.2 Allergy status to sulfonamides; Z88.8 Allergy status to other drugs, medicaments and biological substances; Z68.23 Body mass index [BMI] 23.0-23.9, adult
CPT/HCPCS: 36415; 70450; 74018; 80048; 80053; 82962; 83735; 84132; 84439; 84443; 85025; 85610; 85730; 87086; 96361; 96374; 96376; G0378; J0360; J0696; J1644; J2405; J3246; J3480; J7042